=== PATIENT | male | born 1980 | race Caucasian/White ===

== ENCOUNTER 2016-10-30 13:37 | Emergency (ER) | payer MEDICAID, OTHER, SELFPAY ==
--- NOTE | 2016-10-30 15:19 | EDDOCDS ---
Nurse's Notes [facility] Name: Nam Wiggins Age: 35 yrs Sex: Male : 1980 Arrival Date: 10/30/2016 Time: 13:37 Bed Triage 3 Private MD: Phil Arteaga Diagnosis: Cellulitis of left lower limb-over left ledezma Presentation: 10/30 13:42 Presenting complaint: Patient states: swelling and redness left lower leg for 2 to 3 kr3 days. Denies injury. Scratches to left lower leg prior to development of redness and swelling. Adult Sepsis Screening: The patient does not have new or worsening altered mentation. Patient's respiratory rate is less than 22. Systolic blood pressure is greater than 100. Patient has a qSOFA score of 0- Negative Sepsis Screen. Suicide/Homicide risk assessment- the patient denies having any suicidal and/or homicidal ideations and does not present with any other emotional, behavioral or mental health complaints. Status: Patient is not a jet aircraft servicer or dependent. Transition of care: patient was not received from another setting of care. 13:42 Acuity: NIDIA Level 4 kr3 13:42 Method Of Arrival: Walkin/Carried/Asstd kr3 Triage Assessment: 13:46 General: Appears in no apparent distress, comfortable, Behavior is cooperative. Pain: kr3 Location: left ledezma Pain currently is 5 out of 10 on a pain scale. HIV screening NA for this visit Offered previously. Historical: - Allergies: PENICILLINS; - Home Meds: 1. Haldol 5 mg Oral tab 3 times per day 2. gabapentin 600 mg Oral tab 3 times per day 3. multivitamin Oral cap daily 4. Colace 100 mg oral cap 2 times per day 5. benztropine 1 mg Oral tab once daily 6. hydroxyzine HCl 50 mg Oral tab twice a day 7. haldol decanoate inj 100 mg monthly 8. Trileptal 600 mg oral tab 2 times per day 9. diphenhydramine HCl 50 mg Oral tab q4h and prn 10. Paxil 20 mg Oral tab once daily 11. Pepcid 40 mg Oral tab 2 times per day 12. Flexeril 10 mg Oral tab as needed 13. Zyprexa 20 mg Oral tab nightly 14. Tegretol 100 mg Oral chew every 12 hours 15. Zyprexa 10 mg Oral tab once daily 16. lorazepam 1 mg Oral tab am, 5 pm and hs - PMHx: Asthma; Depression; psychotic disorder; Schizo-Affective Disorder; Seizure Disorder; TBI; hyperlipidemia; - PSHx: bilteral femur fractures; - Social history: Smoking status: Patient uses tobacco products, current every day smoker. No barriers to communication noted, The patient speaks fluent Korean, Speaks appropriately for age. - Family history: Not pertinent. - : The pt / caregiver states he / she is not on anticoagulants. Home medication list is obtained from the facility DEC. - Exposure Risk Screening:: None identified. - Tetanus status: less than 5 years. Screenin:14 Screening information is obtained from the patient. Fall risk: No risks identified. js13 Assistance ADL's: requires no assistance with activities of daily living. Abuse/DV Screen: The patient / caregiver reports he/she is: not in a situation that causes fear, pain or injury. Nutritional screening: No deficits noted. Advance Directives: There is no active DNR order. home support is adequate. Assessment: 15:13 General: Appears in no apparent distress, Behavior is appropriate for age, cooperative. js13 Pain: Location: left leg. Neurological: Level of Consciousness is awake, alert. Respiratory: Airway is patent Respiratory effort is even, unlabored, Respiratory pattern is regular, symmetrical. Derm: Skin is pink, warm & dry. Vital Signs: 13:38 BP 168 / 91; Pulse 79; Resp 18; Temp 97.9(O); Pulse Ox 100% on R/A; Weight 58.97 kg el (R); Height 5 ft. 7 in. (170.18 cm) (R); Pain 5/10; 15:16 BP 158 / 78; Pulse 80; Resp 16; Temp 98.1(O); Pulse Ox 99% on R/A; js13 13:38 Body Mass Index 20.36 (58.97 kg, 170.18 cm) [facility] Vitals: 13:38 Log In Time: October 30, 2016 at 13:36. [facility] ED Course: 13:38 Patient visited by Rebeka Win PCA. elp 13:38 Phil Arteaga is Private Physician. elp 13:38 Patient moved to Waiting elp 13:39 Patient visited by Patchen, Rebeka, SPORTS EQUIPMENT REPAIRER. elp 13:39 Patient moved to Pre RCE elp 13:43 Triage Initiated kr3 14:05 Patient moved to Triage 3 js13 14:14 The patient / caregiver is instructed regarding the plan of care and ED course. js13 14:58 Sabine Lewis PA-C is [facility]. dt4 14:58 Korin Rosario MD is Attending Physician. dt4 14:58 Patient visited by Sabine Lewis PA-C. dt4 15:13 No IV's were initiated during this patient's visit. No procedures done that require js13 assistance. Order Results: There are currently no results for this order. Outcome: 15:12 Discharge ordered by Provider. dt4 15:13 Discharge Assessment: Patient awake, alert and oriented x 3. No cognitive and/or js13 functional deficits noted. Patient verbalized understanding of disposition instructions. patient administered narcotics - no. The following High Risk Discharge criteria are identified: None. Discharged to home ambulatory. Condition: stable. 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 medication usage, Demonstrated understanding of instructions, medications, Pt was receptive of discharge instructions/ teaching. Prescriptions given X 1. No special radiology studies were completed. Property :Personal belongings accompany Pt. 15:18 Patient left the ED. js13 Signatures: Qing Arambula,RN RN kr3 Taryn Thomson RN RN js13 Audelia, Rebeka, SPORTS EQUIPMENT REPAIRER SPORTS EQUIPMENT REPAIRER elp Sabine Lewis PA-C PA-C dt4 RONNY
--- NOTE | 2016-10-30 15:19 | EDDOCDS ---
Physician Documentation [facility] Name: Nam Wiggins Age: 35 yrs Sex: Male : 1980 Arrival Date: 10/30/2016 Time: 13:37 Bed Triage 3 Private MD: Phil Arteaga Disposition: 10/30/16 15:12 Discharged to Home/Self Care. Impression: Cellulitis of left lower limb - over left ledezma. - Condition is Stable. - Discharge Instructions: Cellulitis. - Prescriptions for Clindamycin HCl 300 mg Oral Capsule - take 1 capsule by ORAL route every 8 hours for 10 days; 30 capsule. - Medication Reconciliation, Local Pharmacy Hours form. - Follow up: Emergency Department; When: As needed; Reason: Worsening of conditions. Follow up: Private Physician; When: 4 - 5 days; Reason: Wound/Symptom Recheck, Recheck today's complaints, Continuance of care. - Problem is new. - Symptoms are unchanged. Historical: - Allergies: PENICILLINS; - Home Meds: 1. Haldol 5 mg Oral tab 3 times per day 2. gabapentin 600 mg Oral tab 3 times per day 3. multivitamin Oral cap daily 4. Colace 100 mg oral cap 2 times per day 5. benztropine 1 mg Oral tab once daily 6. hydroxyzine HCl 50 mg Oral tab twice a day 7. haldol decanoate inj 100 mg monthly 8. Trileptal 600 mg oral tab 2 times per day 9. diphenhydramine HCl 50 mg Oral tab q4h and prn 10. Paxil 20 mg Oral tab once daily 11. Pepcid 40 mg Oral tab 2 times per day 12. Flexeril 10 mg Oral tab as needed 13. Zyprexa 20 mg Oral tab nightly 14. Tegretol 100 mg Oral chew every 12 hours 15. Zyprexa 10 mg Oral tab once daily 16. lorazepam 1 mg Oral tab am, 5 pm and hs - PMHx: Asthma; Depression; psychotic disorder; Schizo-Affective Disorder; Seizure Disorder; TBI; hyperlipidemia; - PSHx: bilteral femur fractures; - Social history: Smoking status: Patient uses tobacco products, current every day smoker. No barriers to communication noted, The patient speaks fluent Amharic, Speaks appropriately for age. - Family history: Not pertinent. - : The pt / caregiver states he / she is not on anticoagulants. Home medication list is obtained from the facility MAR. - Exposure Risk Screening:: None identified. - Tetanus status: less than 5 years. Vital Signs: 10/30 13:38 BP 168 / 91; Pulse 79; Resp 18; Temp 97.9(O); Pulse Ox 100% on R/A; Weight 58.97 kg / elp 130.01 lbs (R); Height 5 ft. 7 in. (170.18 cm) (R); Pain 5/10; 15:16 BP 158 / 78; Pulse 80; Resp 16; Temp 98.1(O); Pulse Ox 99% on R/A; js13 13:38 Body Mass Index 20.36 (58.97 kg, 170.18 cm) elp MDM: 15:18 Financial registration complete. mpb Signatures: Qing Arambula,RN RN kr3 Taryn ThomsonRN RN js13 Sabine Lewis PA-C PA-C dt4 Cam Lieberman, Reg Reg mpb RONNY
--- NOTE | 2016-11-01 16:19 | EDDOCDS ---
Physician Documentation [facility] Name: Nam Wiggins Age: 35 yrs Sex: Male : 1980 Arrival Date: 10/30/2016 Time: 13:37 Bed Triage 3 Private MD: Phil Arteaga Disposition: 10/30/16 15:12 Discharged to Home/Self Care. Impression: Cellulitis of left lower limb - over left ledezma. - Condition is Stable. - Discharge Instructions: Cellulitis. - Prescriptions for Clindamycin HCl 300 mg Oral Capsule - take 1 capsule by ORAL route every 8 hours for 10 days; 30 capsule. - Medication Reconciliation, Local Pharmacy Hours form. - Follow up: Emergency Department; When: As needed; Reason: Worsening of conditions. Follow up: Private Physician; When: 4 - 5 days; Reason: Wound/Symptom Recheck, Recheck today's complaints, Continuance of care. - Problem is new. - Symptoms are unchanged. Historical: - Allergies: PENICILLINS; - Home Meds: 1. Haldol 5 mg Oral tab 3 times per day 2. gabapentin 600 mg Oral tab 3 times per day 3. multivitamin Oral cap daily 4. Colace 100 mg oral cap 2 times per day 5. benztropine 1 mg Oral tab once daily 6. hydroxyzine HCl 50 mg Oral tab twice a day 7. haldol decanoate inj 100 mg monthly 8. Trileptal 600 mg oral tab 2 times per day 9. diphenhydramine HCl 50 mg Oral tab q4h and prn 10. Paxil 20 mg Oral tab once daily 11. Pepcid 40 mg Oral tab 2 times per day 12. Flexeril 10 mg Oral tab as needed 13. Zyprexa 20 mg Oral tab nightly 14. Tegretol 100 mg Oral chew every 12 hours 15. Zyprexa 10 mg Oral tab once daily 16. lorazepam 1 mg Oral tab am, 5 pm and hs - PMHx: Asthma; Depression; psychotic disorder; Schizo-Affective Disorder; Seizure Disorder; TBI; hyperlipidemia; - PSHx: bilteral femur fractures; - Social history: Smoking status: Patient uses tobacco products, current every day smoker. No barriers to communication noted, The patient speaks fluent French, Speaks appropriately for age. - Family history: Not pertinent. - : The pt / caregiver states he / she is not on anticoagulants. Home medication list is obtained from the facility MAR. - Exposure Risk Screening:: None identified. - Tetanus status: less than 5 years. Vital Signs: 10/30 13:38 BP 168 / 91; Pulse 79; Resp 18; Temp 97.9(O); Pulse Ox 100% on R/A; Weight 58.97 kg / elp 130.01 lbs (R); Height 5 ft. 7 in. (170.18 cm) (R); Pain 5/10; 15:16 BP 158 / 78; Pulse 80; Resp 16; Temp 98.1(O); Pulse Ox 99% on R/A; js13 13:38 Body Mass Index 20.36 (58.97 kg, 170.18 cm) elp MDM: 15:18 Financial registration complete. [facility] 15:46 [facility] Payment Agreement was scanned into [employer] and attached to record. [facility] 21:59 T-Sheet-- Draft Copy was scanned into [employer] and attached to record. klr Signatures: Qing Arambula,RN RN kr3 Taryn Thomson,RN RN js13 Sabine Lewis, PA-C PA-C dt4 Jolanta Plata b Cam Lieberman, Claer Castillo The chart was reviewed and I authenticate all verbal orders and agree with the evaluation and treatment provided.Attachments: 15:46 [facility] Payment Agreement [facility] 21:59 T-Sheet-- Draft Copy klr Chart Complete MTDD
--- NOTE | 2016-11-01 16:19 | EDDOCDS ---
Physician Documentation [facility] Name: Nam Wiggins Age: 35 yrs Sex: Male : 1980 Arrival Date: 10/30/2016 Time: 13:37 Bed Triage 3 Private MD: Phil Arteaga Disposition: 10/30/16 15:12 Discharged to Home/Self Care. Impression: Cellulitis of left lower limb - over left ledezma. - Condition is Stable. - Discharge Instructions: Cellulitis. - Prescriptions for Clindamycin HCl 300 mg Oral Capsule - take 1 capsule by ORAL route every 8 hours for 10 days; 30 capsule. - Medication Reconciliation, Local Pharmacy Hours form. - Follow up: Emergency Department; When: As needed; Reason: Worsening of conditions. Follow up: Private Physician; When: 4 - 5 days; Reason: Wound/Symptom Recheck, Recheck today's complaints, Continuance of care. - Problem is new. - Symptoms are unchanged. Historical: - Allergies: PENICILLINS; - Home Meds: 1. Haldol 5 mg Oral tab 3 times per day 2. gabapentin 600 mg Oral tab 3 times per day 3. multivitamin Oral cap daily 4. Colace 100 mg oral cap 2 times per day 5. benztropine 1 mg Oral tab once daily 6. hydroxyzine HCl 50 mg Oral tab twice a day 7. haldol decanoate inj 100 mg monthly 8. Trileptal 600 mg oral tab 2 times per day 9. diphenhydramine HCl 50 mg Oral tab q4h and prn 10. Paxil 20 mg Oral tab once daily 11. Pepcid 40 mg Oral tab 2 times per day 12. Flexeril 10 mg Oral tab as needed 13. Zyprexa 20 mg Oral tab nightly 14. Tegretol 100 mg Oral chew every 12 hours 15. Zyprexa 10 mg Oral tab once daily 16. lorazepam 1 mg Oral tab am, 5 pm and hs - PMHx: Asthma; Depression; psychotic disorder; Schizo-Affective Disorder; Seizure Disorder; TBI; hyperlipidemia; - PSHx: bilteral femur fractures; - Social history: Smoking status: Patient uses tobacco products, current every day smoker. No barriers to communication noted, The patient speaks fluent Nepali, Speaks appropriately for age. - Family history: Not pertinent. - : The pt / caregiver states he / she is not on anticoagulants. Home medication list is obtained from the facility MAR. - Exposure Risk Screening:: None identified. - Tetanus status: less than 5 years. Vital Signs: 10/30 13:38 BP 168 / 91; Pulse 79; Resp 18; Temp 97.9(O); Pulse Ox 100% on R/A; Weight 58.97 kg / elp 130.01 lbs (R); Height 5 ft. 7 in. (170.18 cm) (R); Pain 5/10; 15:16 BP 158 / 78; Pulse 80; Resp 16; Temp 98.1(O); Pulse Ox 99% on R/A; js13 13:38 Body Mass Index 20.36 (58.97 kg, 170.18 cm) elp MDM: 15:18 Financial registration complete. [facility] 15:46 [facility] Payment Agreement was scanned into [employer] and attached to record. [facility] 21:59 T-Sheet-- Draft Copy was scanned into [employer] and attached to record. klr Signatures: Qing Arambula,RN RN kr3 Taryn Thomson,RN RN js13 Sabine Lewis, PA-C PA-C dt4 Jolanta Plata b Cam Lieberman, Clare Castillo The chart was reviewed and I authenticate all verbal orders and agree with the evaluation and treatment provided.Attachments: 15:46 [facility] Payment Agreement [facility] 21:59 T-Sheet-- Draft Copy klr Chart Complete MTDD
--- NOTE | 2016-11-01 16:19 | EDDOCDS ---
Nurse's Notes [facility] Name: Nam Wiggins Age: 35 yrs Sex: Male : 1980 Arrival Date: 10/30/2016 Time: 13:37 Bed Triage 3 Private MD: Phil Arteaga Diagnosis: Cellulitis of left lower limb-over left ledezma Presentation: 10/30 13:42 Presenting complaint: Patient states: swelling and redness left lower leg for 2 to 3 kr3 days. Denies injury. Scratches to left lower leg prior to development of redness and swelling. Adult Sepsis Screening: The patient does not have new or worsening altered mentation. Patient's respiratory rate is less than 22. Systolic blood pressure is greater than 100. Patient has a qSOFA score of 0- Negative Sepsis Screen. Suicide/Homicide risk assessment- the patient denies having any suicidal and/or homicidal ideations and does not present with any other emotional, behavioral or mental health complaints. Status: Patient is not a general service officer or dependent. Transition of care: patient was not received from another setting of care. 13:42 Acuity: NIDIA Level 4 kr3 13:42 Method Of Arrival: Walkin/Carried/Asstd kr3 Triage Assessment: 13:46 General: Appears in no apparent distress, comfortable, Behavior is cooperative. Pain: kr3 Location: left ledezma Pain currently is 5 out of 10 on a pain scale. HIV screening NA for this visit Offered previously. Historical: - Allergies: PENICILLINS; - Home Meds: 1. Haldol 5 mg Oral tab 3 times per day 2. gabapentin 600 mg Oral tab 3 times per day 3. multivitamin Oral cap daily 4. Colace 100 mg oral cap 2 times per day 5. benztropine 1 mg Oral tab once daily 6. hydroxyzine HCl 50 mg Oral tab twice a day 7. haldol decanoate inj 100 mg monthly 8. Trileptal 600 mg oral tab 2 times per day 9. diphenhydramine HCl 50 mg Oral tab q4h and prn 10. Paxil 20 mg Oral tab once daily 11. Pepcid 40 mg Oral tab 2 times per day 12. Flexeril 10 mg Oral tab as needed 13. Zyprexa 20 mg Oral tab nightly 14. Tegretol 100 mg Oral chew every 12 hours 15. Zyprexa 10 mg Oral tab once daily 16. lorazepam 1 mg Oral tab am, 5 pm and hs - PMHx: Asthma; Depression; psychotic disorder; Schizo-Affective Disorder; Seizure Disorder; TBI; hyperlipidemia; - PSHx: bilteral femur fractures; - Social history: Smoking status: Patient uses tobacco products, current every day smoker. No barriers to communication noted, The patient speaks fluent Korean, Speaks appropriately for age. - Family history: Not pertinent. - : The pt / caregiver states he / she is not on anticoagulants. Home medication list is obtained from the facility DEC. - Exposure Risk Screening:: None identified. - Tetanus status: less than 5 years. Screenin:14 Screening information is obtained from the patient. Fall risk: No risks identified. js13 Assistance ADL's: requires no assistance with activities of daily living. Abuse/DV Screen: The patient / caregiver reports he/she is: not in a situation that causes fear, pain or injury. Nutritional screening: No deficits noted. Advance Directives: There is no active DNR order. home support is adequate. Assessment: 15:13 General: Appears in no apparent distress, Behavior is appropriate for age, cooperative. js13 Pain: Location: left leg. Neurological: Level of Consciousness is awake, alert. Respiratory: Airway is patent Respiratory effort is even, unlabored, Respiratory pattern is regular, symmetrical. Derm: Skin is pink, warm & dry. Vital Signs: 13:38 BP 168 / 91; Pulse 79; Resp 18; Temp 97.9(O); Pulse Ox 100% on R/A; Weight 58.97 kg el (R); Height 5 ft. 7 in. (170.18 cm) (R); Pain 5/10; 15:16 BP 158 / 78; Pulse 80; Resp 16; Temp 98.1(O); Pulse Ox 99% on R/A; js13 13:38 Body Mass Index 20.36 (58.97 kg, 170.18 cm) [facility] Vitals: 13:38 Log In Time: October 30, 2016 at 13:36. [facility] ED Course: 13:38 Patient visited by Rebeka Win PCA. elp 13:38 Phil Arteaga is Private Physician. elp 13:38 Patient moved to Waiting elp 13:39 Patient visited by Patchen, Rebeka, CONTROL BOARD OPERATOR. elp 13:39 Patient moved to Pre RCE elp 13:43 Triage Initiated kr3 14:05 Patient moved to Triage 3 js13 14:14 The patient / caregiver is instructed regarding the plan of care and ED course. js13 14:58 Sabine Lewis PA-C [facility]. dt4 14:58 Korin Rosario MD is Attending Physician. dt4 14:58 Patient visited by Sabine Lewis PA-C. dt4 15:13 No IV's were initiated during this patient's visit. No procedures done that require js13 assistance. 15:46 [facility] Payment Agreement was scanned into [employer] and attached to record. ry 16:38 Patient name changed from Nam\S\\S\Whelden\S\ to Nam\S\ \S\Whelden. EDMS 21:59 T-Sheet-- Draft Copy was scanned into [employer] and attached to record. klr Order Results: There are currently no results for this order. Outcome: 15:12 Discharge ordered by Provider. dt4 15:13 Discharge Assessment: Patient awake, alert and oriented x 3. No cognitive and/or js13 functional deficits noted. Patient verbalized understanding of disposition instructions. patient administered narcotics - no. The following High Risk Discharge criteria are identified: None. Discharged to home ambulatory. Condition: stable. Discharge instructions given to patient, vp of product, Instructed on discharge instructions, follow up and referral plans. medication usage, Demonstrated understanding of instructions, medications, Pt was receptive of discharge instructions/ teaching. Prescriptions given X 1. No special radiology studies were completed. Property :Personal belongings accompany Pt. 15:18 Patient left the ED. js13 Signatures: Dispatcher [employer] EDMS Qing Arambula,RN RN kr3 Taryn Thomson RN RN js13 Bunny Winin, CONTROL BOARD OPERATOR CONTROL BOARD OPERATOR elp Sabine Lewis PA-C PA-C dt4 Jolanta Plata Kathie klr Chart Complete MTDD
== END 2016-10-30 15:18 | disposition home or self-care (01) ==
LOC: M ED 13:37
DX: L03.116 Cellulitis of left lower limb (principal); J45.909 Unspecified asthma, uncomplicated; F32.9 Major depressive disorder, single episode, unspecified; F25.9 Schizoaffective disorder, unspecified; G40.909 Epilepsy, unspecified, not intractable, without status epilepticus; E78.5 Hyperlipidemia, unspecified; Z87.820 Personal history of traumatic brain injury; Z87.81 Personal history of (healed) traumatic fracture; Z72.0 Tobacco use; Z79.899 Other long term (current) drug therapy; Z88.0 Allergy status to penicillin

== ENCOUNTER → 2016-12-12 | Outpatient (CLI) | payer MEDICAID, SELFPAY ==
[~2016-12-12] MED LIST: ATIV1TAB7 PO; COGE1INJ PO; CYCL10TA PO; GABA-283 PO; HALD100I2 IM; HALD5INJ2 PO; HYDR100C PO; NAPR500T PO; OLAN15TA PO; PAXI20TA3 PO; TEGR200T PO; TRIL600T PO
[2016-12-12 10:34] LABS: ALBUMIN 4.2 GM/DL (3.2-5.2); ALBUMIN/GLOBULIN RATIO 1.5 (1.00-1.93); BILIRUBIN,DIRECT 0.2 MG/DL (0.0-0.2); BILIRUBIN,TOTAL 0.5 MG/DL (0.2-1.0); POTASSIUM SERUM 4.8 MEQ/L (3.5-5.1)
[2016-12-16 00:08] LABS: OLANZAPINE (ZYPREXA) LEVEL 53.4 ng/ml (10.0 - 80.0)
== END ==
LOC: M WUC 08:19
PROVIDERS: ATTEND Psychiatry & Neurology Psychiatry
DX: R74.0 Nonspecific elevation of levels of transaminase and lactic acid dehydrogenase [LDH] (principal)
CPT/HCPCS: 36415; 80051; 80076; 80173; 80183; G0480

== ENCOUNTER 2017-01-16 09:32 | Emergency (ER) | payer MEDICAID, SELFPAY ==
[~2017-01-16] VITALS: Ht 170.2 cm; Wt 61.2 kg
[2017-01-16] MEDS ORDERED: GABA-283 PO (10:02)
[2017-01-16] MEDS ORDERED: OLAN15TA PO (10:02)
[2017-01-16] MEDS ORDERED: HYDR100C PO (10:02)
[2017-01-16] MEDS ORDERED: PAXI20TA3 PO (10:02)
[2017-01-16] MEDS ORDERED: CYCL10TA PO (10:02)
[2017-01-16] MEDS ORDERED: HALD5INJ2 PO (10:02)
[2017-01-16] MEDS ORDERED: TRIL600T PO (10:02)
[2017-01-16] MEDS ORDERED: ATIV1TAB7 PO (10:02)
[2017-01-16] MEDS ORDERED: COGE1INJ PO (10:02)
[2017-01-16] MEDS ORDERED: HALD100I2 IM (10:02)
[2017-01-16] MEDS ORDERED: TEGR200T PO (10:02)
--- NOTE | 2017-01-16 11:01 | REP ---
Clinical: Trauma. Technique: AP, lateral, bilateral oblique views. Findings: The osseous structures and joint spaces are intact and normal. There is no evidence for acute fracture or dislocation. Surrounding soft tissues are unremarkable. No subcutaneous emphysema or radiodense foreign body. Impression: No acute fracture or dislocation. Signed by Sal Caban MD 01/16/2017 10:53 A
[2017-01-16] MEDS ORDERED: NAPR500T PO (11:08)
[2017-01-16 11:28] VITALS: BP 142/84
== END 2017-01-16 11:32 | disposition home or self-care (01) ==
LOC: M ED 10:27
DX: S90.31XA Contusion of right foot, initial encounter (principal); X50.9XXA Other and unspecified overexertion or strenuous movements or postures, initial encounter; Y92.019 Unspecified place in single-family (private) house as the place of occurrence of the external cause; Y93.01 Activity, walking, marching and hiking; Y99.8 Other external cause status

== ENCOUNTER → 2017-03-13 | Outpatient (CLI) | payer MEDICAID ==
[2017-03-13 17:21] LABS: POTASSIUM SERUM 4.3 MEQ/L (3.5-5.1)
== END ==
LOC: M WUC 11:15
PROVIDERS: ATTEND Psychiatry & Neurology Psychiatry
DX: Z79.899 Other long term (current) drug therapy (principal); F20.9 Schizophrenia, unspecified

== ENCOUNTER → 2017-03-21 | Outpatient (CLI) | payer MEDICAID ==
[~2017-03-21] MED LIST changes: +CARB10TACH PO; +COLA100C3 PO; +DIPH12.527 PO; +DIPH50CA PO; +FAMO20TA PO; +FAMO40TA3 PO; +GABA600T PO; +HALO5TA PO; +MULTCAP11 PO; +OLAN20TA PO; +VIST50CA PO; +VITMTA PO
--- NOTE | 2017-03-22 10:41 | REP ---
RIGHT ANKLE, FOUR VIEWS: HISTORY: Pain. There is no acute fracture or dislocation. The joint space is normal in appearance. Soft tissue swelling is present over the lateral malleolus. IMPRESSION: There is no acute fracture or dislocation. Signed by Roberto Horne MD 03/22/2017 10:50 A
== END ==
LOC: M WUC 11:43
PROVIDERS: ATTEND Physician Assistant
DX: M25.571 Pain in right ankle and joints of right foot (principal)

== ENCOUNTER 2017-03-29 15:23 | Inpatient (IN) | payer MEDICAID ==
[~2017-03-29] VITALS: Ht 167.6 cm; Wt 59.5 kg
[~2017-03-29 15:23] MED LIST changes: -CARB10TACH PO; -COLA100C3 PO; -DIPH12.527 PO; -DIPH50CA PO; -FAMO20TA PO; -FAMO40TA3 PO; -GABA600T PO; -HALO5TA PO; -MULTCAP11 PO; -OLAN20TA PO; -VIST50CA PO; -VITMTA PO; +amLODIPine 10 MG TAB PO SCH
[2017-03-29] MEDS ORDERED: DIPH12.527 PO (15:32)
[2017-03-29] MEDS ORDERED: COLA100C3 PO (15:32)
[2017-03-29] MEDS ORDERED: MULTCAP11 PO (15:32)
[2017-03-29] MEDS ORDERED: FAMO20TA PO (15:35)
[2017-03-29 16:50] LABS: BASO % 0.1 % (0.0-1.0); EOS % 0.9 % (0.0-3.0); LARGE UNSTAINED CELL # 0.1 K/mm3 (0.0-0.4); LYMPH # 1.2 K/mm3 (1.5-4.5); LYMPH % 35.7 % (24.0-44.0); MEAN CORPUSCULAR HEMOGLOBIN 31.7 pg (27.0-33.0); MEAN CORPUSCULAR HGB CONC 35.5 g/dl (32.0-36.5); MEAN CORPUSCULAR VOLUME 89.2 fl (80.0-96.0); MONO # 0.3 K/mm3 (0.0-0.8); MONO % 8.8 % (0.0-5.0); NEUTROPHILS # 1.6 K/mm3 (1.8-7.7); NEUTROPHILS % 51.6 % (36.0-66.0); PLATELET COUNT, AUTOMATED 227 k/mm3 (150-450); RED CELL DISTRIBUTION WIDTH 12.5 % (11.5-14.5); WHITE BLOOD COUNT 3.2 K/mm3 (4.0-10.0)
[2017-03-29 17:06] LABS: ALBUMIN 4.3 GM/DL (3.2-5.2); ALBUMIN/GLOBULIN RATIO 1.95 (1.00-1.93); ALKALINE PHOSPHATASE 133 U/L (45-117); ALT/SGPT 27 U/L (12-78); ANION GAP 9 MEQ/L (8-16); AST/SGOT 19 U/L (15-37); BILIRUBIN,DIRECT 0.1 MG/DL (0.0-0.2); BILIRUBIN,TOTAL 0.4 MG/DL (0.2-1.0); BLOOD UREA NITROGEN 5 MG/DL (7-18); CALCIUM LEVEL 8.3 MG/DL (8.5-10.1); CARBAMAZEPINE (TEGRETOL) LEVEL 3.8 UG/ML (4.0-10.0); CARBON DIOXIDE LEVEL 28 MEQ/L (21-32); CHLORIDE LEVEL 77 MEQ/L (98-107); CREATININE FOR GFR 0.45 MG/DL (0.70-1.30); GLOMERULAR FILTRATION RATE > 60.0 (>60); GLUCOSE, FASTING 80 MG/DL (70-105); MAGNESIUM LEVEL 1.9 MG/DL (1.8-2.4); PHOSPHORUS LEVEL 3.1 MG/DL (2.5-4.9); POTASSIUM SERUM 3.9 MEQ/L (3.5-5.1); SODIUM LEVEL 114 MEQ/L (136-145); TOTAL PROTEIN 6.5 GM/DL (6.4-8.2)
[2017-03-29] MEDS ORDERED: GABA600T PO (17:38)
[2017-03-29] MEDS ORDERED: FAMO40TA3 PO (17:38)
[2017-03-29] MEDS ORDERED: HALO5TA PO (17:38)
[2017-03-29] MEDS ORDERED: VIST50CA PO (17:38)
[2017-03-29] MEDS ORDERED: DIPH50CA PO (17:38)
[2017-03-29] MEDS ORDERED: VITMTA PO (17:38)
[2017-03-29] MEDS ORDERED: OLAN20TA PO (17:38)
[2017-03-29] MEDS ORDERED: CARB10TACH PO (17:38)
[2017-03-29] MEDS ORDERED: NS 500 ML IV ONE (18:15)
[2017-03-29] MEDS ORDERED: NS 1,000 ML IV SCH (20:20)
[2017-03-29] MEDS ORDERED: diphenhydrAMINE 50 MG CAP PO PRN (20:30)
[2017-03-29] MEDS ORDERED: ONDANSETRON 4MG/2ML VIAL (J2405) IV PRN (20:30)
[2017-03-29] MEDS ORDERED: ACETAMINOPHEN TAB 650MG DOSE (2X325MG) PO PRN (20:30)
[2017-03-29] MEDS ORDERED: CYCLOBENZAPRINE 10 MG TAB PO PRN (20:30)
[2017-03-29 21:00] VITALS: BP 148/95
[2017-03-29 21:28] LABS: OSMOLALITY SERUM 251 MOSM/KG (275-295)
[2017-03-29 21:32] LABS: ANION GAP 3 MEQ/L (8-16); BLOOD UREA NITROGEN 4 MG/DL (7-18); CALCIUM LEVEL 8.9 MG/DL (8.5-10.1); CARBON DIOXIDE LEVEL 32 MEQ/L (21-32); CHLORIDE LEVEL 86 MEQ/L (98-107); CREATININE FOR GFR 0.48 MG/DL (0.70-1.30); GLOMERULAR FILTRATION RATE > 60.0 (>60); GLUCOSE, FASTING 86 MG/DL (70-105); POTASSIUM SERUM 4.2 MEQ/L (3.5-5.1); SODIUM LEVEL 121 MEQ/L (136-145)
[2017-03-29] MEDS: levETIRAcetam 250MG TABLET (KEPPRA) PO SCH (21:51)
[2017-03-29] MEDS: FAMOTIDINE 20 MG TAB PO SCH (21:51)
[2017-03-29] MEDS: OLANZapine 10 MG TAB PO SCH (21:51)
[2017-03-29] MEDS: GABAPENTIN 300 MG CAP PO SCH (21:51)
[2017-03-29] MEDS: OXcarbazepine 300 MG TAB PO SCH (21:51)
[2017-03-29] MEDS: DOCUSATE SODIUM 100 MG CAP PO SCH (21:52)
[2017-03-29] MEDS: hydrOXYzine 50 MG TAB PO SCH (21:52)
[2017-03-29] MEDS: HALOPERIDOL 5 MG TAB PO SCH (21:52)
[2017-03-29] MEDS: LORazepam 1 MG TAB PO SCH (21:52)
[2017-03-30 01:02] LABS: ANION GAP 8 MEQ/L (8-16); BLOOD UREA NITROGEN 6 MG/DL (7-18); CALCIUM LEVEL 8.9 MG/DL (8.5-10.1); CARBON DIOXIDE LEVEL 25 MEQ/L (21-32); CHLORIDE LEVEL 88 MEQ/L (98-107); CREATININE FOR GFR 0.53 MG/DL (0.70-1.30); GLOMERULAR FILTRATION RATE > 60.0 (>60); GLUCOSE, FASTING 78 MG/DL (70-105); SODIUM LEVEL 121 MEQ/L (136-145)
[2017-03-30 04:54] LABS: BASO % 0.2 % (0.0-1.0); EOS % 0.6 % (0.0-3.0); LARGE UNSTAINED CELL # 0.1 K/mm3 (0.0-0.4); LYMPH # 1.3 K/mm3 (1.5-4.5); LYMPH % 42.1 % (24.0-44.0); MEAN CORPUSCULAR HEMOGLOBIN 31.6 pg (27.0-33.0); MEAN CORPUSCULAR HGB CONC 35.2 g/dl (32.0-36.5); MONO # 0.3 K/mm3 (0.0-0.8); MONO % 11.9 % (0.0-5.0); NEUTROPHILS # 1.1 K/mm3 (1.8-7.7); NEUTROPHILS % 40.2 % (36.0-66.0); PLATELET COUNT, AUTOMATED 245 k/mm3 (150-450); RED CELL DISTRIBUTION WIDTH 12.6 % (11.5-14.5); WHITE BLOOD COUNT 2.8 K/mm3 (4.0-10.0)
[2017-03-30 05:14] LABS: ALBUMIN 3.9 GM/DL (3.2-5.2); ALKALINE PHOSPHATASE 124 U/L (45-117); ALT/SGPT 26 U/L (12-78); ANION GAP 7 MEQ/L (8-16); AST/SGOT 16 U/L (15-37); BILIRUBIN,TOTAL 0.3 MG/DL (0.2-1.0); BLOOD UREA NITROGEN 7 MG/DL (7-18); CALCIUM LEVEL 8.7 MG/DL (8.5-10.1); CARBON DIOXIDE LEVEL 28 MEQ/L (21-32); CHLORIDE LEVEL 89 MEQ/L (98-107); CREATININE FOR GFR 0.65 MG/DL (0.70-1.30); GLOMERULAR FILTRATION RATE > 60.0 (>60); GLUCOSE, FASTING 81 MG/DL (70-105); MAGNESIUM LEVEL 2.3 MG/DL (1.8-2.4); POTASSIUM SERUM 3.9 MEQ/L (3.5-5.1); SODIUM LEVEL 124 MEQ/L (136-145); TOTAL PROTEIN 6.5 GM/DL (6.4-8.2)
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
[2017-03-30 06:00] VITALS: BP 145/92
--- NOTE | 2017-03-30 08:22 | ECGEPIP ---
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
[2017-03-30] MEDS: OXcarbazepine 300 MG TAB PO SCH ×3 (09:25→20:50)
[2017-03-30] MEDS: BENZTROPINE 1 MG TAB PO SCH (09:26)
[2017-03-30] MEDS: FAMOTIDINE 20 MG TAB PO SCH ×2 (09:26→20:49)
[2017-03-30] MEDS: MULTIVITAMINS/MINERALS THERAP 1 TAB PO SCH (09:26)
[2017-03-30] MEDS: DOCUSATE SODIUM 100 MG CAP PO SCH ×2 (09:26→20:49)
[2017-03-30] MEDS: levETIRAcetam 250MG TABLET (KEPPRA) PO SCH ×2 (09:26→20:49)
[2017-03-30] MEDS: OLANZapine 10 MG TAB PO SCH ×2 (09:26→20:49)
[2017-03-30] MEDS: PARoxetine 20 MG TAB PO SCH (09:26)
[2017-03-30] MEDS: LORazepam 1 MG TAB PO SCH ×3 (09:26→20:50)
[2017-03-30] MEDS: HALOPERIDOL 5 MG TAB PO SCH ×3 (09:27→20:49)
[2017-03-30] MEDS: ENOXAPARIN 40 MG/0.4 ML SYRINGE (J1650) SC SCH (09:27)
[2017-03-30] MEDS: hydrOXYzine 50 MG TAB PO SCH ×2 (09:27→20:48)
[2017-03-30] MEDS: GABAPENTIN 300 MG CAP PO SCH ×3 (09:27→20:49)
--- NOTE | 2017-03-30 10:29 | IPNPDOC ---
Subjective Date Seen The patient was seen on 03/30/17. Subjective Chief Complaint/HPI The patient is a 36-year-old male admitted with a reason for visit of Hyponatremia. Events since last encounter Would like a cup of coffee, usually drinks 4 cups per day, hungry, would like diet advanced, no pain Constitutional: Denies: Chills, Fever Pulmonary: Denies: Dyspnea, Cough Cardiovascular: Denies: Chest Pain, Palpitations Gastrointestinal: Denies: Nausea, Vomiting, Abdominal Pain Genitourinary: Denies: Dysuria, Frequency Objective Physical Examination General Exam: Positive: Alert, Cooperative, No Acute Distress Eye Exam: Negative: Sclera icteric ENT Exam: Positive: Mucous membr. moist/pink Chest Exam: Positive: Clear to auscultation, Negative: Rales, Rhonchi, Wheezing Heart Exam: Positive: Rate Normal, Regular Rhythm, Normal S1, Normal S2 Abdomen Exam: Positive: Normal bowel sounds, Soft, Negative: Tenderness Extremity Exam: Negative: Edema Assessment /Plan Problems (1) Hyponatremia Status: Acute Problem Text: by history would appear to be psychogenic polydypsia but consideration given to other underlying possibilities urine sodium and osmolality pending SIADH, hypothyroidism, adrenal insufficiency also possible diet advanced, with fluid restriction (2) Schizophrenia Status: Chronic Problem Text: also personality disorder, and suffers from hallucinations Continuing medications has staff member with him (3) Asthma Status: Chronic Response to Treatment: Stable Problem Specific Plan: Monitor Clinically (4) Seizure disorder Status: Chronic Response to Treatment: Stable Problem Specific Plan: Monitor Clinically (5) Hyperlipidemia Status: Chronic Response to Treatment: Stable Problem Specific Plan: Monitor Clinically Plan/VTE VTE Prophylaxis Ordered?: Yes (lovenox) VS, I&O, 24H, Fishbone Vital Signs/I&O Vital Signs Date Time Temp Pulse Resp B/P (MAP) Pulse Ox O2 Delivery O2 Flow Rate FiO2 03/30/17 06:00 97.0 100 17 145/92 (109) 98 Room Air I&O- Last 24 Hours up to 6 AM 03/30/17 06:00 Intake Total 0 ml Output Total 0 ml Balance 0 ml Laboratory Data 24H LABS Laboratory Tests 2 03/29/17 16:27: White Blood Count 3.2L, Red Blood Count 3.99L, Hemoglobin 12.6L, Hematocrit 35.6L, Mean Corpuscular Volume 89.2, Mean Corpuscular Hemoglobin 31.7, Mean Corpuscular Hemoglobin Concent 35.5, Red Cell Distribution Width 12.5, Platelet Count 227, Neutrophils (%) (Auto) 51.6, Lymphocytes (%) (Auto) 35.7, Monocytes ( %) (Auto) 8.8H, Eosinophils (%) (Auto) 0.9, Basophils (%) (Auto) 0.1, Neutrophils # (Auto) 1.6L, Lymphocytes # (Auto) 1.2L, Monocytes # (Auto) 0.3, Eosinophils # (Auto) 0.0, Basophils # (Auto) 0.0, Large Unclassified Cells % 3.0 , Large Unclassified Cells # 0.1, Anion Gap 9, Glomerular Filtration Rate > 60.0 , Calcium Level 8.3L, Phosphorus Level 3.1, Magnesium Level 1.9, Aspartate Amino Transf (AST/SGOT) 19, Alanine Aminotransferase (ALT/SGPT) 27, Alkaline Phosphatase 133H, Total Bilirubin 0.4, Direct Bilirubin 0.1, Total Protein 6.5, Albumin 4.3, Albumin/Globulin Ratio 1.95H, Carbamazepine (Tegretol) Level 3.8L 03/29/17 20:49: Anion Gap 3L, Glomerular Filtration Rate > 60.0, Calcium Level 8.9, Osmolality 251L, Blood Urea Nitrogen 4L, Creatinine 0.48L, Sodium Level 121#L, Potassium Level 4.2, Chloride Level 86L, Carbon Dioxide Level 32 03/30/17 00:37: Anion Gap 8, Glomerular Filtration Rate > 60.0, Calcium Level 8.9, Blood Urea Nitrogen 6L, Creatinine 0.53L, Sodium Level 121L, Potassium Level 4.0, Chloride Level 88L, Carbon Dioxide Level 25 03/30/17 04:45: White Blood Count 2.8L, Red Blood Count 4.27L, Hemoglobin 13.5L, Hematocrit 38.4L, Mean Corpuscular Volume 90.0, Mean Corpuscular Hemoglobin 31.6, Mean Corpuscular Hemoglobin Concent 35.2, Red Cell Distribution Width 12.6, Platelet Count 245, Neutrophils (%) (Auto) 40.2, Lymphocytes (%) (Auto) 42.1, Monocytes ( %) (Auto) 11.9H, Eosinophils (%) (Auto) 0.6, Basophils (%) (Auto) 0.2, Neutrophils # (Auto) 1.1L, Lymphocytes # (Auto) 1.3L, Monocytes # (Auto) 0.3, Eosinophils # (Auto) 0.0, Basophils # (Auto) 0.0, Large Unclassified Cells % 5.0H, Large Unclassified Cells # 0.1, Anion Gap 7L, Glomerular Filtration Rate > 60.0, Calcium Level 8.7, Magnesium Level 2.3, Aspartate Amino Transf (AST/SGOT ) 16, Alanine Aminotransferase (ALT/SGPT) 26, Alkaline Phosphatase 124H, Total Bilirubin 0.3, Total Protein 6.5, Albumin 3.9, Albumin/Globulin Ratio 1.50, Blood Urea Nitrogen 7, Creatinine 0.65L, Sodium Level 124L, Potassium Level 3.9 , Chloride Level 89L, Carbon Dioxide Level 28, Thyroid Stimulating Hormone (TSH ) 1.510 03/30/17 09:14: CBC/BMP Laboratory Tests 03/29/17 16:27 Red Blood Count 3.99 L, Mean Corpuscular Volume 89.2, Mean Corpuscular Hemoglobin 31.7, Mean Corpuscular Hemoglobin Concent 35.5, Red Cell Distribution Width 12.5, Neutrophils (%) (Auto) 51.6, Lymphocytes (%) (Auto) 35.7, Monocytes (%) (Auto) 8.8 H, Eosinophils (%) (Auto) 0.9, Basophils (%) ( Auto) 0.1, Neutrophils # (Auto) 1.6 L, Lymphocytes # (Auto) 1.2 L, Monocytes # ( Auto) 0.3, Eosinophils # (Auto) 0.0, Basophils # (Auto) 0.0 03/29/17 20:49 Calcium Level 8.9 03/30/17 00:37 Calcium Level 8.9 03/30/17 04:45 Red Blood Count 4.27 L, Mean Corpuscular Volume 90.0, Mean Corpuscular Hemoglobin 31.6, Mean Corpuscular Hemoglobin Concent 35.2, Red Cell Distribution Width 12.6, Neutrophils (%) (Auto) 40.2, Lymphocytes (%) (Auto) 42.1, Monocytes (%) (Auto) 11.9 H, Eosinophils (%) (Auto) 0.6, Basophils (%) ( Auto) 0.2, Neutrophils # (Auto) 1.1 L, Lymphocytes # (Auto) 1.3 L, Monocytes # ( Auto) 0.3, Eosinophils # (Auto) 0.0, Basophils # (Auto) 0.0, Calcium Level 8.7, Aspartate Amino Transf (AST/SGOT) 16, Alanine Aminotransferase (ALT/SGPT) 26, Alkaline Phosphatase 124 H, Total Bilirubin 0.3, Total Protein 6.5, Albumin 3.9 JESS RICARDO MD Mar 30, 2017 10:29
[2017-03-30 10:45] LABS: OSMOLALITY URINE 120 MOSM/KG (500-800)
[2017-03-30 12:47] LABS: CORTISOL BASELINE 14.5 UG/DL (4.3-22.4)
--- NOTE | 2017-03-30 13:37 | REP ---
MRI study of the right foot without contrast: History: Right foot and ankle pain. Injury in a fall this past december. Comparison radiographs March 21, 2017 and January 16, 2017. Technique: Sagittal, axial and coronal imaging planes are utilized. T1, proton density and T2-weighted scans include STIR and spin echo sequences with and without fat saturation. MRI findings: There is marked signal intensity abnormality throughout the talus, calcaneus and cuboid bone. There is mild marrow edema in the cuneiform bones and the medial aspect of the tarsal navicula. There is a radiographically occult nondisplaced fracture through the posterior talus parallel to the posterior subtalar joint facet. There is another radiographically occult nondisplaced fracture through the anterior and lateral aspect of the calcaneus. There is subtalar and ankle joint effusion. Some extra-articular soft tissue edema is seen. No evidence of tendon disruption or tendinopathy. Plantar fascia is smooth. No other fracture is seen. Impression: Healing nondisplaced radiographically occult fractures involving the posterior talus and the anterolateral calcaneus with associated and fairly extensive marrow edema in the hind foot and midfoot. Ankle and subtalar joint effusions. Signed by Luis Manuel Oneill MD 03/30/2017 03:08 P
[2017-03-30 14:00] VITALS: BP 122/71
[2017-03-30 16:26] LABS: ANION GAP 7 MEQ/L (8-16); BLOOD UREA NITROGEN 9 MG/DL (7-18); CARBON DIOXIDE LEVEL 28 MEQ/L (21-32); CHLORIDE LEVEL 92 MEQ/L (98-107); CREATININE FOR GFR 0.81 MG/DL (0.70-1.30); GLOMERULAR FILTRATION RATE > 60.0 (>60); GLUCOSE, FASTING 94 MG/DL (70-105); POTASSIUM SERUM 4.1 MEQ/L (3.5-5.1); SODIUM LEVEL 127 MEQ/L (136-145)
[2017-03-30 16:27] LABS: CALCIUM LEVEL 9.1 MG/DL (8.5-10.1)
[2017-03-30 22:00] VITALS: BP 122/63
[2017-03-31 06:00] VITALS: BP 130/78
[2017-03-31 06:49] LABS: BASO % 0.2 % (0.0-1.0); EOS % 0.8 % (0.0-3.0); LARGE UNSTAINED CELL # 0.1 K/mm3 (0.0-0.4); LARGE UNSTAINED CELL % 2.1 % (0.0-4.0); LYMPH # 1.5 K/mm3 (1.5-4.5); LYMPH % 38.4 % (24.0-44.0); MEAN CORPUSCULAR HEMOGLOBIN 31.5 pg (27.0-33.0); MEAN CORPUSCULAR VOLUME 92.8 fl (80.0-96.0); MONO # 0.4 K/mm3 (0.0-0.8); MONO % 11.7 % (0.0-5.0); NEUTROPHILS # 1.7 K/mm3 (1.8-7.7); NEUTROPHILS % 46.7 % (36.0-66.0); PLATELET COUNT, AUTOMATED 261 k/mm3 (150-450); RED CELL DISTRIBUTION WIDTH 12.9 % (11.5-14.5); WHITE BLOOD COUNT 3.6 K/mm3 (4.0-10.0)
[2017-03-31 06:53] LABS: ALBUMIN 3.9 GM/DL (3.2-5.2); ALBUMIN/GLOBULIN RATIO 1.56 (1.00-1.93); ALKALINE PHOSPHATASE 129 U/L (45-117); ALT/SGPT 28 U/L (12-78); ANION GAP 9 MEQ/L (8-16); AST/SGOT 14 U/L (15-37); BILIRUBIN,TOTAL 0.3 MG/DL (0.2-1.0); BLOOD UREA NITROGEN 14 MG/DL (7-18); CARBON DIOXIDE LEVEL 26 MEQ/L (21-32); CHLORIDE LEVEL 93 MEQ/L (98-107); CREATININE FOR GFR 0.89 MG/DL (0.70-1.30); GLOMERULAR FILTRATION RATE > 60.0 (>60); GLUCOSE, FASTING 79 MG/DL (70-105); MAGNESIUM LEVEL 2.2 MG/DL (1.8-2.4); POTASSIUM SERUM 4.3 MEQ/L (3.5-5.1); SODIUM LEVEL 128 MEQ/L (136-145); TOTAL PROTEIN 6.4 GM/DL (6.4-8.2)
[2017-03-31] MEDS: DOCUSATE SODIUM 100 MG CAP PO SCH (08:30)
[2017-03-31] MEDS: OLANZapine 10 MG TAB PO SCH (08:30)
[2017-03-31] MEDS: BENZTROPINE 1 MG TAB PO SCH (08:30)
[2017-03-31] MEDS: PARoxetine 20 MG TAB PO SCH (08:30)
[2017-03-31] MEDS: GABAPENTIN 300 MG CAP PO SCH (08:30)
[2017-03-31] MEDS: HALOPERIDOL 5 MG TAB PO SCH (08:30)
[2017-03-31] MEDS: hydrOXYzine 50 MG TAB PO SCH (08:30)
[2017-03-31] MEDS: OXcarbazepine 300 MG TAB PO SCH (08:30)
[2017-03-31] MEDS: MULTIVITAMINS/MINERALS THERAP 1 TAB PO SCH (08:30)
[2017-03-31] MEDS: FAMOTIDINE 20 MG TAB PO SCH (08:30)
[2017-03-31] MEDS: levETIRAcetam 250MG TABLET (KEPPRA) PO SCH (08:30)
[2017-03-31] MEDS: LORazepam 1 MG TAB PO SCH (08:31)
[2017-03-31] MEDS: ENOXAPARIN 40 MG/0.4 ML SYRINGE (J1650) SC SCH (08:31)
--- NOTE | 2017-03-31 15:57 | DSES ---
DATE OF ADMISSION: 03/29/2017 DATE OF DISCHARGE: 03/31/2017 SPECIALISTS INVOLVED IN CARE: Dr. Kruger. COMPLICATIONS: No complications during stay. PROCEDURES: No procedures performed during stay. DISCHARGE DIAGNOSES: 1. 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 2. Fracture of the right posterior talus and anterolateral calcaneus, with joint effusions. 3. Psychotic disorder with hallucinations. 4. Schizophrenia paranoid type. 5. Personality disorder. 6. Asthma. 7. Epilepsy. 8. Hyperlipidemia. SUMMARY OF HOSPITALIZATION: This is a 36-year-old who presented with abnormal laboratories and was found to have hyponatremia with a sodium of 114. He was treated with saline. Urine and blood studies were done which suggested the possibility of psychogenic polydipsia. There was initially concern about the possibility of syndrome of inappropriate secretion of antidiuretic hormone (SIADH) which seems less likely. He was treated with fluid restriction with improvement. He did well during his stay. It became apparent during his stay that he has right foot pain and was planned for an outpatient MRI, was found to have a fracture. Was seen in consultation by Dr. Kruger, who casted the ankle, and he was discharged in stable condition. No complaints of chest pain, shortness of breath. OBJECTIVE: VITAL SIGNS: Temperature 97.9, pulse 93, respiratory rate 18, blood pressure 130/78, 100% on room air. GENERAL: Awake, alert, appropriately interactive. Pleasantly conversant. Somewhat flattened affect. ABDOMEN: Soft, doughy, nontender. LUNGS: Breathing is symmetrical. HEART: Regular rate and rhythm. LABORATORY DATA: White cell count 3.6, hemoglobin 13.2, and platelets of 261. BUN 14, creatinine 0.89. Sodium 128 trending upwards. DISCHARGE INSTRUCTIONS: Followup with Dr. Arteaga 04/12/2017. Followup with Dr. Kruger within four weeks. Ambulate with cast including crutches. Diet as tolerated. Fluid restriction 2000 mL per 24 hours. - Cogentin 1 mg by mouth daily - carbamazepine 100 mg by mouth twice daily - Flexeril 10 mg by mouth three times a day - diphenhydramine 50 mg every four hours as needed for agitation - Colace 100 mg by mouth twice daily - famotidine 40 mg by mouth twice daily - Neurontin 600 mg by mouth three times a day - haloperidol 5 mg by mouth three times a day - haloperidol decanoate intramuscular monthly - hydroxyzine (please verify) by mouth twice daily - lorazepam 1 mg by mouth three times a day - multivitamin tablet daily - olanzapine 20 mg by mouth twice daily - Trileptal 600 mg by mouth three times a day - Paxil 20 mg daily As it is taking longer than a week to get him in with his primary care, I believe it is reasonable to repeat a basic metabolic panel (BMP) in one week. I will need to mail the patient a prescription for that with the results to Dr. Arteaga.
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
== END 2017-03-31 14:05 | disposition home or self-care (01) | DRG 425 ==
LOC: M ED 16:48 → M ED INP 18:29 → M MSPAV 20:53
PROVIDERS: ATTEND Internal Medicine
DX: E87.1 Hypo-osmolality and hyponatremia (principal); S92.024A Nondisplaced fracture of anterior process of right calcaneus, initial encounter for closed fracture; S92.134A Nondisplaced fracture of posterior process of right talus, initial encounter for closed fracture; R63.1 Polydipsia; F20.0 Paranoid schizophrenia; G40.909 Epilepsy, unspecified, not intractable, without status epilepticus; E78.5 Hyperlipidemia, unspecified; F60.9 Personality disorder, unspecified; Z79.899 Other long term (current) drug therapy; K59.00 Constipation, unspecified; W18.30XA Fall on same level, unspecified, initial encounter; Y92.009 Unspecified place in unspecified non-institutional (private) residence as the place of occurrence of the external cause

== ENCOUNTER → 2017-03-29 | Outpatient (CLI) | payer OTHER ==
[2017-03-29 13:33] LABS: MEAN CORPUSCULAR HEMOGLOBIN 32.3 pg (27.0-33.0); MEAN CORPUSCULAR HGB CONC 35.8 g/dl (32.0-36.5); MEAN CORPUSCULAR VOLUME 90.2 fl (80.0-96.0); RED CELL DISTRIBUTION WIDTH 12.4 % (11.5-14.5); WHITE BLOOD COUNT 3.4 K/mm3 (4.0-10.0)
[2017-03-29 13:54] LABS: ALBUMIN 4.4 GM/DL (3.2-5.2); ALBUMIN/GLOBULIN RATIO 1.76 (1.00-1.93); ALKALINE PHOSPHATASE 138 U/L (45-117); ALT/SGPT 26 U/L (12-78); ANION GAP 9 MEQ/L (8-16); AST/SGOT 21 U/L (15-37); BILIRUBIN,TOTAL 0.5 MG/DL (0.2-1.0); BLOOD UREA NITROGEN 5 MG/DL (7-18); CARBON DIOXIDE LEVEL 28 MEQ/L (21-32); CHLORIDE LEVEL 77 MEQ/L (98-107); CHOLESTEROL LEVEL 166 MG/DL (<200); CREATININE FOR GFR 0.42 MG/DL (0.70-1.30); FREE T4 1.11 NG/DL (0.76-1.46); GLOMERULAR FILTRATION RATE > 60.0 (>60); GLUCOSE, FASTING 75 MG/DL (70-105); POTASSIUM SERUM 4.7 MEQ/L (3.5-5.1); SODIUM LEVEL 114 MEQ/L (136-145); TOTAL PROTEIN 6.9 GM/DL (6.4-8.2); TRIGLYCERIDES LEVEL 34 MG/DL (<150)
== END ==
LOC: M WUC 08:50
PROVIDERS: ATTEND Physician Assistant
DX: Z00.00 Encounter for general adult medical examination without abnormal findings (principal)

== ENCOUNTER → 2017-04-15 | Outpatient (CLI) | payer MEDICAID ==
[~2017-04-15] MED LIST changes: +CARB10TACH PO; +COLA100C3 PO; +DIPH12.527 PO; +DIPH50CA PO; +FAMO20TA PO; +FAMO40TA3 PO; +GABA600T PO; +HALO5TA PO; +MULTCAP11 PO; +OLAN20TA PO; +VIST50CA PO; +VITMTA PO; -amLODIPine 10 MG TAB PO SCH
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
== END ==
LOC: M WUC 13:44
PROVIDERS: ATTEND Physician Assistant
DX: S62.356A Nondisplaced fracture of shaft of fifth metacarpal bone, right hand, initial encounter for closed fracture (principal); W18.30XA Fall on same level, unspecified, initial encounter; Y92.009 Unspecified place in unspecified non-institutional (private) residence as the place of occurrence of the external cause

== ENCOUNTER → 2017-04-17 | Outpatient (CLI) | payer OTHER ==
[2017-04-17 17:20] LABS: MEAN CORPUSCULAR HEMOGLOBIN 31.7 pg (27.0-33.0); MEAN CORPUSCULAR HGB CONC 33.5 g/dl (32.0-36.5); MEAN CORPUSCULAR VOLUME 94.6 fl (80.0-96.0); RED CELL DISTRIBUTION WIDTH 12.6 % (11.5-14.5); WHITE BLOOD COUNT 4.9 K/mm3 (4.0-10.0)
[2017-04-17 17:29] LABS: VITAMIN B12 LEVEL 332 PG/ML (247-911)
[2017-04-17 18:48] LABS: ALBUMIN 3.9 GM/DL (3.2-5.2); ALBUMIN/GLOBULIN RATIO 1.56 (1.00-1.93); ALKALINE PHOSPHATASE 130 U/L (45-117); ALT/SGPT 21 U/L (12-78); ANION GAP 7 MEQ/L (8-16); AST/SGOT 12 U/L (15-37); BILIRUBIN,TOTAL 0.2 MG/DL (0.2-1.0); BLOOD UREA NITROGEN 9 MG/DL (7-18); CARBAMAZEPINE (TEGRETOL) LEVEL 4.6 UG/ML (4.0-10.0); CARBON DIOXIDE LEVEL 27 MEQ/L (21-32); CHLORIDE LEVEL 94 MEQ/L (98-107); CREATININE FOR GFR 0.47 MG/DL (0.70-1.30); FREE T4 0.83 NG/DL (0.76-1.46); GLOMERULAR FILTRATION RATE > 60.0 (>60); GLUCOSE, FASTING 100 MG/DL (70-105); POTASSIUM SERUM 4.4 MEQ/L (3.5-5.1); SODIUM LEVEL 128 MEQ/L (136-145); TOTAL PROTEIN 6.4 GM/DL (6.4-8.2)
== END ==
LOC: M WUC 15:28
PROVIDERS: ATTEND Family Medicine
DX: K21.9 Gastro-esophageal reflux disease without esophagitis (principal)

== ENCOUNTER 2017-05-24 21:04 | Emergency (ER) | payer MEDICAID ==
[~2017-05-24] VITALS: Ht 167.6 cm; Wt 56.8 kg
[~2017-05-24 21:04] MED LIST changes: -BENZ-52 PO; -CLON0.5T PO; -DEPA500T2 PO; -DIVA500T3 PO; -HALO10AM IM; -HALO10TA2 PO; -HALO1TAB29 PO; -HYDR50TA70 PO; -HYDRO50TAB PO; -IBUP1TAB6 PO; -LAMI25TA PO; -LORA1TAB12 PO; -MULT1TAB10 PO; -OLAN5ZYD PO; -OXCA300T PO; -RISP1TAB42 PO; -SERT50TA PO; -TRAZ50TA11 PO; -TRAZO50TA PO; -VIMP50TA3 PO
[2017-05-24] MEDS ORDERED: DEPA500T2 PO (21:16)
[2017-05-24] MEDS ORDERED: GABA-283 PO (21:16)
[2017-05-24] MEDS ORDERED: MULT1TAB10 PO (21:16)
[2017-05-24] MEDS ORDERED: IBUPROFEN 800 MG TAB PO ONE (23:15)
[2017-05-25 00:31] VITALS: BP 140/86
--- NOTE | 2017-05-25 08:32 | REP ---
Right ankle four views: Comparison is 03/21/2017. There is a nondisplaced fracture of the distal fibula, not present previously. There is significant soft tissue edema laterally. There is no other fracture. No dislocation. The mortise is symmetric. Mineralization is normal. Impression: Nondisplaced fracture of the distal fibula. Signed by Jeremias Zamudio MD 05/25/2017 08:23 A
== END 2017-05-25 00:15 | disposition home or self-care (01) ==
LOC: M ED 21:04
DX: S82.831A Other fracture of upper and lower end of right fibula, initial encounter for closed fracture (principal); E78.00 Pure hypercholesterolemia, unspecified; J45.909 Unspecified asthma, uncomplicated; F60.9 Personality disorder, unspecified; X58.XXXA Exposure to other specified factors, initial encounter; Y92.018 Other place in single-family (private) house as the place of occurrence of the external cause; Y99.9 Unspecified external cause status; Y93.9 Activity, unspecified; Z88.0 Allergy status to penicillin; Z88.5 Allergy status to narcotic agent

== ENCOUNTER → 2017-05-24 | Outpatient (CLI) | payer MEDICAID ==
[~2017-05-24] MED LIST changes: +BENZ-52 PO; +CLON0.5T PO; -COLA100C3 PO; +COLA100C5 PO; +DEPA500T2 PO; +DIVA500T3 PO; +HALO10AM IM; +HALO10TA2 PO; +HALO1TAB29 PO; +HYDR50TA70 PO; +HYDRO50TAB PO; +IBUP1TAB6 PO; +LAMI25TA PO; +LORA1TAB12 PO; +MULT1TAB10 PO; +OLAN5ZYD PO; +OXCA300T PO; +PAXI20TA29 PO; -PAXI20TA3 PO; +RISP1TAB42 PO; +SERT50TA PO; +TRAZ50TA11 PO; +TRAZO50TA PO; +VIMP50TA3 PO
[2017-05-24 17:22] LABS: ALBUMIN 3.8 GM/DL (3.2-5.2); ALBUMIN/GLOBULIN RATIO 1.41 (1.00-1.93); ALKALINE PHOSPHATASE 127 U/L (45-117); ALT/SGPT 22 U/L (12-78); ANION GAP 11 MEQ/L (8-16); AST/SGOT 32 U/L (15-37); BILIRUBIN,TOTAL 0.2 MG/DL (0.2-1.0); BLOOD UREA NITROGEN 10 MG/DL (7-18); CALCIUM LEVEL 8.7 MG/DL (8.5-10.1); CARBON DIOXIDE LEVEL 25 MEQ/L (21-32); CHLORIDE LEVEL 104 MEQ/L (98-107); CREATININE FOR GFR 0.52 MG/DL (0.70-1.30); GLOMERULAR FILTRATION RATE > 60.0 (>60); GLUCOSE, FASTING 90 MG/DL (70-105); POTASSIUM SERUM 4.6 MEQ/L (3.5-5.1); SODIUM LEVEL 140 MEQ/L (136-145); TOTAL PROTEIN 6.5 GM/DL (6.4-8.2)
[2017-05-24 18:46] LABS: BASO % 0.2 % (0.0-1.0); EOS % 0.7 % (0.0-3.0); LARGE UNSTAINED CELL % 1.1 % (0.0-4.0); LYMPH # 1.2 K/mm3 (1.5-4.5); LYMPH % 31.7 % (24.0-44.0); MEAN CORPUSCULAR HGB CONC 33.8 g/dl (32.0-36.5); MEAN CORPUSCULAR VOLUME 94.8 fl (80.0-96.0); MONO # 0.2 K/mm3 (0.0-0.8); MONO % 5.5 % (0.0-5.0); NEUTROPHILS # 2.2 K/mm3 (1.8-7.7); NEUTROPHILS % 60.9 % (36.0-66.0); PLATELET COUNT, AUTOMATED 244 k/mm3 (150-450); RED CELL DISTRIBUTION WIDTH 12.6 % (11.5-14.5); WHITE BLOOD COUNT 3.6 K/mm3 (4.0-10.0)
== END ==
LOC: M WUC 13:15
PROVIDERS: ATTEND Psychiatry & Neurology Neurology
DX: R56.9 Unspecified convulsions (principal)

== ENCOUNTER → 2017-05-24 | Outpatient (CLI) | payer MEDICAID ==
[2017-05-24 17:27] LABS: ANION GAP 8 MEQ/L (8-16); BLOOD UREA NITROGEN 10 MG/DL (7-18); CALCIUM LEVEL 8.5 MG/DL (8.5-10.1); CARBON DIOXIDE LEVEL 28 MEQ/L (21-32); CHLORIDE LEVEL 102 MEQ/L (98-107); CREATININE FOR GFR 0.57 MG/DL (0.70-1.30); FERRITIN 58 NG/ML (26-388); GLOMERULAR FILTRATION RATE > 60.0 (>60); GLUCOSE, FASTING 90 MG/DL (70-105); POTASSIUM SERUM 4.4 MEQ/L (3.5-5.1); SODIUM LEVEL 138 MEQ/L (136-145); TOTAL IRON BINDING CAPACITY 253 UG/DL (250-450)
[2017-05-24 17:56] LABS: VITAMIN B12 LEVEL 590 PG/ML (247-911)
[2017-05-24 17:57] LABS: FOLATE 11.6 NG/ML (>5.4)
[2017-05-24 18:17] LABS: BASO % 0.1 % (0.0-1.0); EOS % 0.9 % (0.0-3.0); LYMPH # 1.1 K/mm3 (1.5-4.5); MEAN CORPUSCULAR HEMOGLOBIN 32.6 pg (27.0-33.0); MEAN CORPUSCULAR HGB CONC 34.3 g/dl (32.0-36.5); MEAN CORPUSCULAR VOLUME 95.2 fl (80.0-96.0); MONO # 0.2 K/mm3 (0.0-0.8); MONO % 5.1 % (0.0-5.0); NEUTROPHILS # 2.2 K/mm3 (1.8-7.7); NEUTROPHILS % 61.5 % (36.0-66.0); RED CELL DISTRIBUTION WIDTH 12.6 % (11.5-14.5); RETIC HEMOGLOBIN CONTENT CHr 33.5 PG (24-36); RETICULOCYTE % 1.2 % (0.5-1.5); WHITE BLOOD COUNT 3.6 K/mm3 (4.0-10.0)
== END ==
LOC: M WUC 13:20
PROVIDERS: ATTEND Family Medicine
DX: E29.1 Testicular hypofunction (principal); D64.9 Anemia, unspecified; E87.1 Hypo-osmolality and hyponatremia; K21.9 Gastro-esophageal reflux disease without esophagitis
CPT/HCPCS: 80048; 82607; 82728; 82746; 83550; 84402; 84403; 85027; 85046; G0103

== ENCOUNTER → 2017-05-24 | Outpatient (CLI) | payer MEDICAID ==
[2017-05-24 17:08] LABS: BASO % 0.1 % (0.0-1.0); EOS % 0.6 % (0.0-3.0); LYMPH # 1.1 K/mm3 (1.5-4.5); LYMPH % 30.5 % (24.0-44.0); MEAN CORPUSCULAR HEMOGLOBIN 32.5 pg (27.0-33.0); MEAN CORPUSCULAR HGB CONC 34.4 g/dl (32.0-36.5); MEAN CORPUSCULAR VOLUME 94.4 fl (80.0-96.0); MONO # 0.2 K/mm3 (0.0-0.8); MONO % 6.6 % (0.0-5.0); NEUTROPHILS # 2.2 K/mm3 (1.8-7.7); NEUTROPHILS % 61.3 % (36.0-66.0); RED CELL DISTRIBUTION WIDTH 12.6 % (11.5-14.5); WHITE BLOOD COUNT 3.6 K/mm3 (4.0-10.0)
== END ==
LOC: M WUC 13:35
PROVIDERS: ATTEND Psychiatry & Neurology Psychiatry
DX: F25.0 Schizoaffective disorder, bipolar type (principal); Z79.899 Other long term (current) drug therapy
CPT/HCPCS: 85027; G0480

== ENCOUNTER 2017-05-29 13:50 | Inpatient (IN) | payer MEDICAID ==
[~2017-05-29] VITALS: Ht 167.6 cm; Wt 54.0 kg
[~2017-05-29 13:50] MED LIST changes: +DEPA500T2 PO; +MULT1TAB10 PO
[2017-05-29] MEDS ORDERED: HYDR50TA70 PO (14:11)
[2017-05-29 15:05] LABS: MEAN CORPUSCULAR HEMOGLOBIN 32.7 pg (27.0-33.0); MEAN CORPUSCULAR HGB CONC 34.5 g/dl (32.0-36.5); MEAN CORPUSCULAR VOLUME 94.9 fl (80.0-96.0); RED CELL DISTRIBUTION WIDTH 12.4 % (11.5-14.5); WHITE BLOOD COUNT 4.3 K/mm3 (4.0-10.0)
[2017-05-29 15:48] LABS: ALBUMIN 4.6 GM/DL (3.2-5.2); ALBUMIN/GLOBULIN RATIO 1.44 (1.00-1.93); ALKALINE PHOSPHATASE 140 U/L (45-117); ALT/SGPT 23 U/L (12-78); ANION GAP 9 MEQ/L (8-16); AST/SGOT 20 U/L (15-37); BILIRUBIN,DIRECT 0.1 MG/DL (0.0-0.2); BILIRUBIN,TOTAL 0.3 MG/DL (0.2-1.0); BLOOD UREA NITROGEN 8 MG/DL (7-18); CALCIUM LEVEL 9.4 MG/DL (8.5-10.1); CARBON DIOXIDE LEVEL 29 MEQ/L (21-32); CHLORIDE LEVEL 97 MEQ/L (98-107); GLOMERULAR FILTRATION RATE > 60.0 (>60); GLUCOSE, FASTING 76 MG/DL (70-105); MAGNESIUM LEVEL 2.1 MG/DL (1.8-2.4); POTASSIUM SERUM 4.1 MEQ/L (3.5-5.1); SODIUM LEVEL 135 MEQ/L (136-145); TOTAL PROTEIN 7.8 GM/DL (6.4-8.2)
[2017-05-29 16:59] LABS: METHADONE URINE NEGATIVE (NEGATIVE)
[2017-05-29] MEDS ORDERED: MOM 30ML SUSPENSION UDC PO PRN (18:45)
[2017-05-29] MEDS ORDERED: DIVA500T3 PO (18:55)
[2017-05-29] MEDS ORDERED: BENZ-52 PO (18:55)
[2017-05-29] MEDS ORDERED: OXCA300T PO (18:55)
[2017-05-29] MEDS ORDERED: HALD100I2 IM (18:55)
[2017-05-29] MEDS: DIVALPROEX 500MG *ER* TAB PO SCH (22:31)
[2017-05-29] MEDS: HALOPERIDOL 10 MG TAB PO SCH (22:31)
[2017-05-29] MEDS: LORazepam 1 MG TAB PO SCH (22:32)
[2017-05-29] MEDS: carBAMazepine XR 200 MG TAB PO SCH (22:32)
[2017-05-30] MEDS: traZODone 50 MG TAB PO PRN (00:20)
[2017-05-30] MEDS: LORazepam 1 MG TAB PO SCH ×4 (06:21→17:50)
[2017-05-30 07:04] VITALS: BP 139/92
[2017-05-30] MEDS: HALOPERIDOL 10 MG TAB PO SCH ×4 (08:36→21:00)
[2017-05-30] MEDS: DIVALPROEX 500MG *ER* TAB PO SCH ×3 (08:36→21:00)
[2017-05-30] MEDS: carBAMazepine XR 200 MG TAB PO SCH (08:36)
[2017-05-30] MEDS ORDERED: OLANZapine 10 MG TAB PO SCH (09:00)
[2017-05-30] MEDS ORDERED: ALBUTEROL 90 MCG/ACT 8GM HFA INHALER INH PRN (09:45)
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
[2017-05-30] MEDS: OXcarbazepine 300 MG TAB PO SCH ×2 (11:47→21:00)
[2017-05-30] MEDS: MAALOX 30 ML SUSP *UDC PO PRN (12:34)
[2017-05-30] MEDS ORDERED: BENZTROPINE 1 MG TAB PO ONE (17:45)
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
[2017-05-30 18:16] VITALS: BP 134/78
[2017-05-30] MEDS: carBAMazepine 100 MG *1/2* TAB PO SCH (21:00)
[2017-05-31] MEDS: LORazepam 1 MG TAB PO SCH ×4 (06:00→17:08)
[2017-05-31 07:11] VITALS: BP 146/65
[2017-05-31 08:06] LABS: MEAN CORPUSCULAR HEMOGLOBIN 32.1 pg (27.0-33.0); MEAN CORPUSCULAR HGB CONC 35.1 g/dl (32.0-36.5); MEAN CORPUSCULAR VOLUME 91.3 fl (80.0-96.0); RED CELL DISTRIBUTION WIDTH 12.4 % (11.5-14.5); WHITE BLOOD COUNT 2.8 K/mm3 (4.0-10.0)
[2017-05-31 08:20] LABS: ANION GAP 10 MEQ/L (8-16); BLOOD UREA NITROGEN 6 MG/DL (7-18); CALCIUM LEVEL 8.7 MG/DL (8.5-10.1); CARBON DIOXIDE LEVEL 26 MEQ/L (21-32); CHLORIDE LEVEL 89 MEQ/L (98-107); CREATININE FOR GFR 0.53 MG/DL (0.70-1.30); GLOMERULAR FILTRATION RATE > 60.0 (>60); GLUCOSE, FASTING 77 MG/DL (70-105); POTASSIUM SERUM 4.5 MEQ/L (3.5-5.1)
[2017-05-31] MEDS: DIVALPROEX 500MG *ER* TAB PO SCH ×3 (08:33→20:38)
[2017-05-31] MEDS: HALOPERIDOL 10 MG TAB PO SCH ×4 (08:33→20:37)
[2017-05-31] MEDS: carBAMazepine 100 MG *1/2* TAB PO SCH ×2 (08:33→20:37)
[2017-05-31] MEDS: BENZTROPINE 1 MG TAB PO SCH (08:33)
[2017-05-31] MEDS: OXcarbazepine 300 MG TAB PO SCH ×2 (08:33→20:37)
[2017-05-31 08:54] LABS: SODIUM LEVEL 125 MEQ/L (136-145)
[2017-05-31] MEDS: IBUPROFEN 600 MG TAB PO PRN (16:10)
[2017-05-31 18:10] VITALS: BP 130/82
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
[2017-05-31] MEDS: ACETAMINOPHEN TAB 650MG DOSE (2X325MG) PO PRN (20:38)
--- NOTE | 2017-05-31 22:38 | ECGEPIP ---
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
[2017-06-01] MEDS: LORazepam 1 MG TAB PO SCH ×5 (06:20→23:27)
[2017-06-01 07:22] VITALS: BP 135/77
[2017-06-01 07:44] LABS: ANION GAP 8 MEQ/L (8-16); BLOOD UREA NITROGEN 6 MG/DL (7-18); CALCIUM LEVEL 8.6 MG/DL (8.5-10.1); CARBON DIOXIDE LEVEL 26 MEQ/L (21-32); CHLORIDE LEVEL 87 MEQ/L (98-107); CREATININE FOR GFR 0.57 MG/DL (0.70-1.30); GLOMERULAR FILTRATION RATE > 60.0 (>60); GLUCOSE, FASTING 79 MG/DL (70-105); POTASSIUM SERUM 4.1 MEQ/L (3.5-5.1); SODIUM LEVEL 121 MEQ/L (136-145)
[2017-06-01] MEDS: DIVALPROEX 500MG *ER* TAB PO SCH ×2 (08:02→20:20)
[2017-06-01] MEDS: HALOPERIDOL 10 MG TAB PO SCH ×4 (08:02→20:19)
[2017-06-01] MEDS: carBAMazepine 100 MG *1/2* TAB PO SCH ×2 (08:02→20:20)
[2017-06-01] MEDS: BENZTROPINE 1 MG TAB PO SCH (08:02)
[2017-06-01] MEDS: OXcarbazepine 300 MG TAB PO SCH (08:02)
[2017-06-01] MEDS: IBUPROFEN 600 MG TAB PO PRN ×2 (08:21→14:31)
[2017-06-01] MEDS ORDERED: HALOPERIDOL DECANOATE 100 MG/ML VIAL (J1631) IM SCH (09:00)
[2017-06-01] MEDS: MAALOX 30 ML SUSP *UDC PO PRN (10:21)
[2017-06-01] MEDS ORDERED: LORazepam 1 MG TAB PO STA (10:40)
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
[2017-06-01] MEDS: lamoTRIgine 25 MG TAB PO SCH ×2 (13:35→20:19)
[2017-06-01] MEDS ORDERED: LORazepam 1 MG TAB PO SCH (16:00)
[2017-06-01 18:00] VITALS: BP 136/89
[2017-06-01] MEDS: ACETAMINOPHEN TAB 650MG DOSE (2X325MG) PO PRN (18:03)
[2017-06-01] MEDS ORDERED: OXcarbazepine 300 MG TAB PO ONE (21:00)
[2017-06-01] MEDS ORDERED: lamoTRIgine 25 MG TAB PO SCH (21:00)
[2017-06-01] MEDS ORDERED: OXcarbazepine 300 MG TAB PO SCH (21:00)
[2017-06-01] MEDS: traZODone 50 MG TAB PO PRN (21:56)
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
[2017-06-02 06:00] VITALS: BP 129/65
[2017-06-02] MEDS: LORazepam 1 MG TAB PO SCH ×4 (06:37→23:26)
[2017-06-02] MEDS: ACETAMINOPHEN TAB 650MG DOSE (2X325MG) PO PRN ×2 (06:47→15:57)
[2017-06-02 07:59] LABS: ANION GAP 12 MEQ/L (8-16); BLOOD UREA NITROGEN 7 MG/DL (7-18); CARBON DIOXIDE LEVEL 23 MEQ/L (21-32); CHLORIDE LEVEL 89 MEQ/L (98-107); CREATININE FOR GFR 0.49 MG/DL (0.70-1.30); GLOMERULAR FILTRATION RATE > 60.0 (>60); GLUCOSE, FASTING 87 MG/DL (70-105); POTASSIUM SERUM 4.3 MEQ/L (3.5-5.1); SODIUM LEVEL 124 MEQ/L (136-145)
[2017-06-02] MEDS ORDERED: OXcarbazepine 300 MG TAB PO SCH (09:00)
[2017-06-02] MEDS ORDERED: carBAMazepine 100 MG *1/2* TAB PO SCH (09:00)
[2017-06-02] MEDS: HALOPERIDOL 10 MG TAB PO SCH ×4 (09:04→20:35)
[2017-06-02] MEDS: lamoTRIgine 25 MG TAB PO SCH ×2 (09:05→20:35)
[2017-06-02] MEDS: DIVALPROEX 500MG *ER* TAB PO SCH ×2 (09:06→20:35)
[2017-06-02] MEDS: carBAMazepine 100 MG *1/2* TAB PO SCH ×2 (09:06→20:35)
[2017-06-02] MEDS: BENZTROPINE 1 MG TAB PO SCH (09:06)
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
[2017-06-02] MEDS: IBUPROFEN 600 MG TAB PO PRN ×2 (13:09→20:36)
--- NOTE | 2017-06-02 15:07 | MHIPNPDOC ---
[facility] Progress Note Progress Note DATE OF SERVICE: 06/02/17 HISTORY: Seen sitting in room with casted foot elevated. Feels "good" today, denies experiencing anxiety or irritability. Does not mention paranoia today. Patient questions when he will be starting Clozaril and when he will be returning to [facility]. Staff from [facility] called and asked about possible discharge times for patient. He has remained calm and cooperative with staff here, only minor irritability, requires frequent redirection regarding his fluid restriction but has not become aggressive over it. He was seen yesterday by Neurology for management of his seizure disorder in preparation to discontinue his old AED regimen so that he would have fewer interactions with Clozaril, will plan to follow their recommendations. VITAL SIGNS: See below. NEW TEST RESULTS: Sodium levels improving. CURRENT MEDICATIONS: See below. MENTAL STATUS EXAMINATION: 36 year old male who appears stated age; dressed in [facility]; calm and cooperative; appropriate eye contact. Speech has a broken rhythm, some word- searching evident, even tone and volume. Thought processes appear concrete, goal -oriented, logical; associations are intact, abstraction and memory are impaired due to his TBI history. Denies SI/HI/AVH, no evidence of paranoia or delusions today. Mood is "good", affect is neutral, blunted range, congruent to stated thought content. Insight appears fair, judgement appears fair. 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 Since his admission he has not been volatile with staff here. He has a known history of psychogenic polydipsia with resultant hyponatremia, this has played a small factor in his current admission, however he has been amenable to fluid restriction and redirection at this time. His outpatient psychiatrist recommended that he be switched to Clozaril and therefore patient is in the middle of an AED cross-taper to minimize risk of iatrogenic leukopenia. Patient has been tolerating the crossover well and has been calm and compliant with staff throughout his stay. He reported some increased paranoia initially but this appears to have resolved for the time being after receiving his regularly scheduled Haldol Decanoate. MANAGEMENT PLAN: continue current psychotropic with plan to initiate Clozaril once patient's WBC count stabilizes and he is no longer on Trileptal and Tegretol. Following Neurology recommendations for AED, plan to DC Trileptal tomorrow and continue Tegretol 100mg BID for 3-5 days; Neurology plans to reassess patient over the weekend. Continue Lamictal 25mg BID and Depakote 500mg BID. Begin discharge planning for patient, may initiate Clozaril prior to discharge if patient is unstable. TIME SPENT: 15 minutes. Vital Signs Vital Signs Date Time Temp Pulse Resp B/P (MAP) Pulse Ox O2 Delivery O2 Flow Rate FiO2 06/02/17 06:00 98.4 86 18 129/65 (86) Room Air 05/30/17 07:04 99 Laboratory Data 24H Labs Laboratory Tests 2 06/02/17 07:25: Anion Gap 12, Glomerular Filtration Rate > 60.0, Blood Urea Nitrogen 7, Creatinine 0.49L, Sodium Level 124L, Potassium Level 4.3, Chloride Level 89L, Carbon Dioxide Level 23, Calcium Level 9.0 CBC/BMP Laboratory Tests 06/02/17 07:25 Calcium Level 9.0 Current Medications Current Medications Acetaminophen (Tylenol Tab) 650 mg Q6HP PRN PO HEADACHE or DISCOMFORT Last administered on 06/02/17 06:47; Start 05/29/17 at 18:45; Stop 06/28/17 at 18:44 Al Hydrox/Mg Hydrox/Simethicone (Mylanta) 30 ml Q4HP PRN PO HEARTBURN/ INDIGESTION Last administered on 06/01/17 10:21; Start 05/29/17 at 18:45; Stop 06/28/17 at 18:44 Albuterol Sulfate (Proventil, Ventolin Hfa) 2 puff Q4HP PRN INH SHORTNESS OF BREATH; Start 05/30/17 at 09:45; Stop 06/29/17 at 09:44 Benztropine Mesylate (Cogentin) 1 mg DAILY PO Last administered on 06/02/17 09 :06; Start 05/31/17 at 09:00; Stop 06/30/17 at 08:59 Carbamazepine (TEGretol XR) 200 mg BID PO Last administered on 05/30/17 08:36; Start 05/29/17 at 21:00; Stop 05/30/17 at 11:07; Status DC Carbamazepine (TEGretol) 100 mg BID PO Last administered on 06/02/17 09:06; Start 06/01/17 at 21:00; Stop 07/01/17 at 20:59 Carbamazepine (TEGretol) 100 mg BID PO Last administered on 06/01/17 08:02; Start 05/30/17 at 21:00; Stop 06/01/17 at 10:56; Status DC Carbamazepine (TEGretol) 100 mg DAILY PO ; Start 06/02/17 at 09:00; Stop at 20:59; Status Cancel Diphenhydramine HCl (Benadryl) 50 mg Q4HP PRN PO AGITATION; Start 05/29/17 at 18 :45; Stop 06/28/17 at 18:44 Divalproex Sodium (Depakote Er) 500 mg BID PO Last administered on 06/02/17 09 :06; Start 06/01/17 at 21:00; Stop 06/28/17 at 20:59 Divalproex Sodium (Depakote Er) 500 mg TID PO Last administered on 06/01/17 08 :02; Start 05/29/17 at 21:00; Stop 06/01/17 at 10:52; Status DC Haloperidol (Haldol) 10 mg QID PO Last administered on 06/02/17 12:09; Start 05/29/17 at 21:00; Stop 06/28/17 at 20:59 Haloperidol Decanoate (Haldol Decanoate) 100 mg Q21D@0900 IM Last administered on 06/01/17 16:57; Start 06/01/17 at 09:00; Stop 07/01/17 at 08:59 Home Med (Med Rec Complete!) ASDIRECTED XX ; Start 05/29/17 at 19:00; Stop at 19:00; Status DC Hydroxyzine HCl (Atarax) 50 mg Q4HP PRN PO ANXIETY/AGITATION; Start 05/29/17 at 19:00; Stop 06/28/17 at 18:59 Ibuprofen (Advil) 600 mg Q6HP PRN PO MODERATE PAIN (PS 5-7) Last administered on 06/02/17 13:09; Start 05/31/17 at 11:45; Stop 06/30/17 at 11:44 Lamotrigine (LaMICtal) 25 mg BID PO Last administered on 06/02/17 09:05; Start 06/01/17 at 09:00; Stop 07/01/17 at 08:59 Lamotrigine (LaMICtal) 25 mg QHS PO ; Start 06/01/17 at 21:00; Stop 06/01/17 at 21:00; Status DC Lorazepam (Ativan) 1 mg Q6H PO Last administered on 06/02/17 12:09; Start 05/29 at 18:00; Stop 06/05/17 at 17:59 Lorazepam (Ativan) 1 mg STAT STAT PO Last administered on 06/01/17 11:27; Start 06/01/17 at 10:40; Stop 06/01/17 at 10:42; Status DC Lorazepam (Ativan) 1 mg TID PO ; Start 06/01/17 at 16:00; Stop 06/08/17 at 15:59 ; Status UNV Magnesium Hydroxide (Milk Of Magnesia) 30 ml DAILYPRN PRN PO CONSTIPATION; Start 05/29/17 at 18:45; Stop 06/28/17 at 18:44 Miscellaneous (Unresolved Clarification Entry) SEE LABEL COMMENTS UNRESOLVED XX ; Start 06/01/17 at 00:01; Stop 06/01/17 at 16:37; Status DC Olanzapine (ZyPREXA) 10 mg QAM PO ; Start 05/30/17 at 09:00; Stop 06/29/17 at 08: 59; Status Cancel Oxcarbazepine (Trileptal) 300 mg BID PO ; Start 06/01/17 at 21:00; Stop at 21:00; Status DC Oxcarbazepine (Trileptal) 300 mg BID PO Last administered on 06/01/17 08:02; Start 05/30/17 at 09:00; Stop 06/01/17 at 10:53; Status DC Oxcarbazepine (Trileptal) 300 mg DAILY PO Last administered on 06/02/17 09:06 ; Start 06/02/17 at 09:00; Stop 06/03/17 at 12:00 Trazodone HCl (Desyrel) 50 mg QHSP PRN PO INSOMNIA Last administered on 21:56; Start 05/29/17 at 18:45; Stop 06/28/17 at 18:44 Allergies Coded Allergies: Codeine (Verified Allergy, Intermediate, 05/29/17) Penicillins (Verified Allergy, Intermediate, 01/16/17) SHANNON MENDEZ MD Jun 02, 2017 15:07
[2017-06-02 18:00] VITALS: BP 134/78
[2017-06-02] MEDS: diphenhydrAMINE 25 MG CAP PO PRN (20:35)
[2017-06-02] MEDS: hydrOXYzine 50 MG TAB PO PRN (20:35)
[2017-06-02] MEDS: traZODone 50 MG TAB PO PRN (20:35)
[2017-06-03] MEDS: LORazepam 1 MG TAB PO SCH ×4 (06:15→23:23)
[2017-06-03 06:56] VITALS: BP 158/88
[2017-06-03 07:05] LABS: BASO % 0.2 % (0.0-1.0); EOS # 0.1 K/mm3 (0.0-0.50); EOS % 2.3 % (0.0-3.0); LARGE UNSTAINED CELL # 0.1 K/mm3 (0.0-0.4); LARGE UNSTAINED CELL % 1.8 % (0.0-4.0); LYMPH # 1.1 K/mm3 (1.5-4.5); LYMPH % 33.9 % (24.0-44.0); MEAN CORPUSCULAR HEMOGLOBIN 32.3 pg (27.0-33.0); MEAN CORPUSCULAR HGB CONC 34.3 g/dl (32.0-36.5); MEAN CORPUSCULAR VOLUME 94.1 fl (80.0-96.0); MONO # 0.3 K/mm3 (0.0-0.8); MONO % 10.8 % (0.0-5.0); NEUTROPHILS # 1.6 K/mm3 (1.8-7.7); PLATELET COUNT, AUTOMATED 331 k/mm3 (150-450); RED CELL DISTRIBUTION WIDTH 12.9 % (11.5-14.5); WHITE BLOOD COUNT 3.2 K/mm3 (4.0-10.0)
[2017-06-03 07:23] LABS: ANION GAP 11 MEQ/L (8-16); BLOOD UREA NITROGEN 8 MG/DL (7-18); CALCIUM LEVEL 8.8 MG/DL (8.5-10.1); CARBON DIOXIDE LEVEL 23 MEQ/L (21-32); CHLORIDE LEVEL 98 MEQ/L (98-107); CREATININE FOR GFR 0.59 MG/DL (0.70-1.30); GLOMERULAR FILTRATION RATE > 60.0 (>60); GLUCOSE, FASTING 81 MG/DL (70-105); POTASSIUM SERUM 4.8 MEQ/L (3.5-5.1); SODIUM LEVEL 132 MEQ/L (136-145)
[2017-06-03] MEDS: DIVALPROEX 500MG *ER* TAB PO SCH ×2 (08:08→20:00)
[2017-06-03] MEDS: carBAMazepine 100 MG *1/2* TAB PO SCH ×2 (08:08→20:00)
[2017-06-03] MEDS: HALOPERIDOL 10 MG TAB PO SCH ×4 (08:09→20:00)
[2017-06-03] MEDS: BENZTROPINE 1 MG TAB PO SCH (08:09)
[2017-06-03] MEDS: lamoTRIgine 25 MG TAB PO SCH ×2 (08:09→20:00)
[2017-06-03] MEDS: ACETAMINOPHEN TAB 650MG DOSE (2X325MG) PO PRN ×2 (08:10→21:11)
[2017-06-03] MEDS: diphenhydrAMINE 25 MG CAP PO PRN (10:57)
[2017-06-03] MEDS: IBUPROFEN 600 MG TAB PO PRN (15:37)
[2017-06-03 18:00] VITALS: BP 124/62
[2017-06-03] MEDS: diphenhydrAMINE 50 MG CAP PO PRN (18:18)
[2017-06-03] MEDS: traZODone 50 MG TAB PO PRN (20:00)
[2017-06-03] MEDS: hydrOXYzine 50 MG TAB PO PRN (20:00)
[2017-06-04] MEDS: LORazepam 1 MG TAB PO SCH ×3 (06:05→17:23)
[2017-06-04] MEDS: hydrOXYzine 50 MG TAB PO PRN (07:10)
[2017-06-04] MEDS: diphenhydrAMINE 50 MG CAP PO PRN (07:10)
[2017-06-04] MEDS: IBUPROFEN 600 MG TAB PO PRN ×3 (07:10→19:30)
[2017-06-04 07:36] LABS: ANION GAP 7 MEQ/L (8-16); BLOOD UREA NITROGEN 9 MG/DL (7-18); CALCIUM LEVEL 8.9 MG/DL (8.5-10.1); CARBON DIOXIDE LEVEL 26 MEQ/L (21-32); CHLORIDE LEVEL 102 MEQ/L (98-107); CREATININE FOR GFR 0.66 MG/DL (0.70-1.30); GLOMERULAR FILTRATION RATE > 60.0 (>60); GLUCOSE, FASTING 86 MG/DL (70-105); POTASSIUM SERUM 4.5 MEQ/L (3.5-5.1); SODIUM LEVEL 135 MEQ/L (136-145)
[2017-06-04] MEDS: carBAMazepine 100 MG *1/2* TAB PO SCH (08:40)
[2017-06-04] MEDS: DIVALPROEX 500MG *ER* TAB PO SCH ×2 (08:40→21:14)
[2017-06-04] MEDS: lamoTRIgine 25 MG TAB PO SCH ×2 (08:40→21:13)
[2017-06-04] MEDS: HALOPERIDOL 10 MG TAB PO SCH ×4 (08:40→21:13)
[2017-06-04] MEDS: BENZTROPINE 1 MG TAB PO SCH (08:40)
--- NOTE | 2017-06-04 15:09 | MHIPN ---
DATE: 06/03/2017 The patient today states, "I am good." His only complaint is his foot and he continues on one-to-one observation. Staff has to continually tell him to keep the foot elevated. MENTAL STATUS EXAMINATION: The patient is a very poor historian and he continues to have ongoing paranoid delusions and disorganized thinking. His mood is fine. Affect is flat. He is not voicing any suicidal or homicidal ideations. Concentration is fair. Insight and judgment poor. DIAGNOSES: 1. Paranoid schizophrenia. 2. Traumatic brain injury. TREATMENT PLAN: At this point, we will continue to monitor the patient on one-to-one observation level. We will continue to titrate his medications as indicated.
[2017-06-04] MEDS: ACETAMINOPHEN TAB 650MG DOSE (2X325MG) PO PRN (16:43)
[2017-06-04 18:40] VITALS: BP 122/69
[2017-06-04] MEDS: traZODone 50 MG TAB PO PRN (21:14)
[2017-06-05] MEDS: LORazepam 1 MG TAB PO SCH ×3 (06:01→12:13)
--- NOTE | 2017-06-05 06:44 | IPN ---
DATE OF SERVICE: 06/04/2017 The patient today states that he is doing fine. He is not focusing on his foot today, but other than that he just put his head down and he did not answer any other questions. He is continued on one-to-one observation. MENTAL STATUS EXAMINATION: As is said, I did not really do a formal mental status exam other than the fact that he said that his mood was fine. His affect was flat. Insight and judgment is poor. DIAGNOSIS: Paranoid schizophrenia and traumatic brain injury. TREATMENT PLAN: We will continue patient on one-to-one observation and we will continue to monitor him for stabilization of his mood and resolution of any aggressive behavior.
[2017-06-05 06:50] VITALS: BP 132/85
[2017-06-05] MEDS: HALOPERIDOL 10 MG TAB PO SCH ×3 (08:08→16:16)
[2017-06-05] MEDS: BENZTROPINE 1 MG TAB PO SCH (08:08)
[2017-06-05] MEDS: lamoTRIgine 25 MG TAB PO SCH (08:08)
[2017-06-05] MEDS: IBUPROFEN 600 MG TAB PO PRN (08:09)
[2017-06-05] MEDS: DIVALPROEX 500MG *ER* TAB PO SCH (08:09)
[2017-06-05 09:11] LABS: ANION GAP 7 MEQ/L (8-16); BLOOD UREA NITROGEN 6 MG/DL (7-18); CALCIUM LEVEL 8.8 MG/DL (8.5-10.1); CARBON DIOXIDE LEVEL 28 MEQ/L (21-32); CHLORIDE LEVEL 104 MEQ/L (98-107); GLOMERULAR FILTRATION RATE > 60.0 (>60); GLUCOSE, FASTING 56 MG/DL (70-105); POTASSIUM SERUM 4.6 MEQ/L (3.5-5.1); SODIUM LEVEL 139 MEQ/L (136-145)
[2017-06-05] MEDS ORDERED: HALO10TA2 PO (11:07)
[2017-06-05] MEDS ORDERED: HYDRO50TAB PO (11:07)
[2017-06-05] MEDS ORDERED: DIPH50CA PO (11:07)
[2017-06-05] MEDS ORDERED: HALO10AM IM ×2 (11:07→11:28)
[2017-06-05] MEDS ORDERED: LORA1TAB12 PO (11:07)
[2017-06-05] MEDS ORDERED: DEPA500T2 PO (11:07)
[2017-06-05] MEDS ORDERED: LAMI25TA PO (11:07)
[2017-06-05] MEDS ORDERED: TRAZ50TA11 PO (11:26)
[2017-06-05] MEDS: ACETAMINOPHEN TAB 650MG DOSE (2X325MG) PO PRN (16:16)
[2017-06-05] MEDS ORDERED: traZODone 50 MG TAB PO SCH (21:00)
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
== END 2017-06-05 17:00 | disposition home or self-care (01) | DRG 750 ==
LOC: M ED 13:50 → M ED INP 18:31 → M PSY 20:57
PROVIDERS: ADMIT Psychiatry & Neurology Psychiatry; ATTEND Psychiatry & Neurology Psychiatry
DX: F20.0 Paranoid schizophrenia (principal); F01.51 Vascular dementia, unspecified severity, with behavioral disturbance; G40.909 Epilepsy, unspecified, not intractable, without status epilepticus; E87.1 Hypo-osmolality and hyponatremia; Z79.899 Other long term (current) drug therapy; R63.1 Polydipsia

== ENCOUNTER → 2017-06-08 | Outpatient (CLI) | payer MEDICAID ==
[~2017-06-08] MED LIST changes: +BENZ-52 PO; +CLON0.5T PO; +DIVA500T3 PO; +HALO10AM IM; +HALO10TA2 PO; +HALO1TAB29 PO; +HYDR50TA70 PO; +HYDRO50TAB PO; +IBUP1TAB6 PO; +LAMI25TA PO; +LORA1TAB12 PO; +OLAN5ZYD PO; +OXCA300T PO; +RISP1TAB42 PO; +SERT50TA PO; +TRAZ50TA11 PO; +TRAZO50TA PO; +VIMP50TA3 PO
[2017-06-08 19:36] LABS: BASO % 0.6 % (0.0-1.0); EOS % 0.8 % (0.0-3.0); LARGE UNSTAINED CELL # 0.1 K/mm3 (0.0-0.4); LARGE UNSTAINED CELL % 1.3 % (0.0-4.0); LYMPH # 1.4 K/mm3 (1.5-4.5); LYMPH % 30.1 % (24.0-44.0); MEAN CORPUSCULAR HEMOGLOBIN 32.1 pg (27.0-33.0); MEAN CORPUSCULAR HGB CONC 33.8 g/dl (32.0-36.5); MEAN CORPUSCULAR VOLUME 94.9 fl (80.0-96.0); MONO # 0.4 K/mm3 (0.0-0.8); NEUTROPHILS # 2.6 K/mm3 (1.8-7.7); NEUTROPHILS % 58.2 % (36.0-66.0); PLATELET COUNT, AUTOMATED 250 k/mm3 (150-450); RED CELL DISTRIBUTION WIDTH 12.5 % (11.5-14.5); WHITE BLOOD COUNT 4.4 K/mm3 (4.0-10.0)
== END ==
LOC: M WUC 17:45
PROVIDERS: ATTEND Psychiatry & Neurology Psychiatry
DX: Z79.899 Other long term (current) drug therapy (principal)

== ENCOUNTER → 2017-06-08 | Outpatient (CLI) | payer MEDICAID ==
[2017-06-08 20:43] LABS: OSMOLALITY SERUM 287 MOSM/KG (275-295)
[2017-06-08 20:54] LABS: ALBUMIN 3.8 GM/DL (3.2-5.2); ANION GAP 7 MEQ/L (8-16); BLOOD UREA NITROGEN 10 MG/DL (7-18); CALCIUM LEVEL 8.9 MG/DL (8.5-10.1); CARBON DIOXIDE LEVEL 29 MEQ/L (21-32); CHLORIDE LEVEL 105 MEQ/L (98-107); CREATININE FOR GFR 0.66 MG/DL (0.70-1.30); GLOMERULAR FILTRATION RATE > 60.0 (>60); GLUCOSE, FASTING 88 MG/DL (70-105); PHOSPHORUS LEVEL 4.4 MG/DL (2.5-4.9); POTASSIUM SERUM 4.2 MEQ/L (3.5-5.1); SODIUM LEVEL 141 MEQ/L (136-145); URIC ACID 2.3 MG/DL (3.5-7.2)
== END ==
LOC: M WUC 17:40
PROVIDERS: ATTEND Internal Medicine Nephrology
DX: E87.1 Hypo-osmolality and hyponatremia (principal)

== ENCOUNTER 2017-06-16 17:34 | Emergency (ER) | payer MEDICAID ==
[~2017-06-16] VITALS: Ht 180.3 cm; Wt 59.1 kg
[2017-06-16 17:34] VITALS: BP 135/72
[~2017-06-16 17:34] MED LIST changes: -CLON0.5T PO; -HALO1TAB29 PO; -IBUP1TAB6 PO; -OLAN5ZYD PO; -RISP1TAB42 PO; -SERT50TA PO; -TRAZO50TA PO; -VIMP50TA3 PO
[2017-06-16] MEDS ORDERED: LORazepam 1 MG TAB PO STA (18:20)
[2017-06-16] MEDS ORDERED: LORA1TAB12 PO (18:27)
== END 2017-06-16 18:45 | disposition home or self-care (01) ==
LOC: M ED 17:34
DX: Z76.0 Encounter for issue of repeat prescription (principal); F20.9 Schizophrenia, unspecified; F17.200 Nicotine dependence, unspecified, uncomplicated; Z79.899 Other long term (current) drug therapy; Z88.5 Allergy status to narcotic agent; Z88.0 Allergy status to penicillin

== ENCOUNTER 2017-06-18 21:12 | Inpatient (IN) | payer MEDICAID ==
[~2017-06-18] VITALS: Ht 167.6 cm; Wt 50.9 kg
[~2017-06-18 21:12] MED LIST changes: +traZODone 50 MG TAB PO SCH
[2017-06-18] MEDS ORDERED: HALOPERIDOL 5 MG/ML VIAL (J1630) IM STA (22:02)
[2017-06-18] MEDS ORDERED: diphenhydrAMINE INJ 50MG/ML VIAL (J1200) IM ONE (22:15)
[2017-06-18 22:29] LABS: MEAN CORPUSCULAR HEMOGLOBIN 32.3 pg (27.0-33.0); MEAN CORPUSCULAR VOLUME 95.1 fl (80.0-96.0); RED CELL DISTRIBUTION WIDTH 12.9 % (11.5-14.5); WHITE BLOOD COUNT 3.5 K/mm3 (4.0-10.0)
[2017-06-18] MEDS ORDERED: OLANZapine ORAL DISINTEGRATING TAB 5MG PO PRN (22:45)
[2017-06-18 22:59] LABS: METHADONE URINE NEGATIVE (NEGATIVE)
[2017-06-18 23:09] LABS: ALBUMIN 3.8 GM/DL (3.2-5.2); ALBUMIN/GLOBULIN RATIO 1.27 (1.00-1.93); ALKALINE PHOSPHATASE 96 U/L (45-117); ALT/SGPT 71 U/L (12-78); ANION GAP 11 MEQ/L (8-16); AST/SGOT 25 U/L (15-37); BILIRUBIN,DIRECT < 0.1 MG/DL (0.0-0.2); BILIRUBIN,TOTAL 0.2 MG/DL (0.2-1.0); BLOOD UREA NITROGEN 14 MG/DL (7-18); CALCIUM LEVEL 7.9 MG/DL (8.5-10.1); CARBON DIOXIDE LEVEL 26 MEQ/L (21-32); CHLORIDE LEVEL 104 MEQ/L (98-107); CREATININE FOR GFR 0.71 MG/DL (0.70-1.30); GLOMERULAR FILTRATION RATE > 60.0 (>60); GLUCOSE, FASTING 86 MG/DL (70-105); POTASSIUM SERUM 4.4 MEQ/L (3.5-5.1); SODIUM LEVEL 141 MEQ/L (136-145); TOTAL PROTEIN 6.8 GM/DL (6.4-8.2)
[2017-06-18] MEDS ORDERED: LAMI25TA PO (23:09)
[2017-06-18] MEDS ORDERED: LORA1TAB12 PO (23:09)
[2017-06-18] MEDS ORDERED: HALO1TAB29 PO (23:09)
[2017-06-18] MEDS ORDERED: DIPH50CA PO (23:09)
[2017-06-18] MEDS ORDERED: BENZ-52 PO (23:09)
[2017-06-18] MEDS ORDERED: HYDR50TA70 PO (23:09)
[2017-06-18] MEDS ORDERED: DEPA500T2 PO (23:09)
[2017-06-18] MEDS ORDERED: TRAZ50TA11 PO (23:09)
[2017-06-18] MEDS ORDERED: HALD100I2 IM (23:11)
[2017-06-18] MEDS ORDERED: hydrOXYzine 50 MG TAB PO PRN (23:45)
[2017-06-18] MEDS ORDERED: MOM 30ML SUSPENSION UDC PO PRN (23:45)
[2017-06-19 00:31] VITALS: BP 101/77
[2017-06-19 06:00] VITALS: BP 111/69
[2017-06-19] MEDS: ACETAMINOPHEN TAB 650MG DOSE (2X325MG) PO PRN ×2 (06:41→13:57)
[2017-06-19] MEDS: DIVALPROEX 500MG *ER* TAB PO SCH ×2 (08:36→21:53)
[2017-06-19] MEDS: DOCUSATE SODIUM 100 MG CAP PO SCH ×2 (08:36→21:53)
[2017-06-19] MEDS: BENZTROPINE 1 MG TAB PO SCH (08:36)
[2017-06-19] MEDS: MULTIVITAMINS/MINERALS THERAP 1 TAB PO SCH (08:36)
[2017-06-19] MEDS: lamoTRIgine 25 MG TAB PO SCH ×2 (08:37→21:52)
[2017-06-19] MEDS: LORazepam 1 MG TAB PO SCH ×4 (08:37→21:52)
[2017-06-19] MEDS: FAMOTIDINE 20 MG TAB PO SCH ×2 (08:37→21:52)
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
[2017-06-19] MEDS ORDERED: ALBUTEROL 90 MCG/ACT 8GM HFA INHALER INH PRN (09:45)
--- NOTE | 2017-06-19 15:08 | ECGEPIP ---
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 No significant change compared with 05/30/2017. Electronically Signed On 06-19-2017 15:08:27 EDT by Darin Gonzalez
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
[2017-06-19 18:00] VITALS: BP 125/73
[2017-06-19] MEDS: diphenhydrAMINE 50 MG CAP PO PRN (18:22)
[2017-06-19] MEDS: traZODone 50 MG TAB PO SCH (21:52)
[2017-06-20 06:27] VITALS: BP 125/65
[2017-06-20 07:28] LABS: MEAN CORPUSCULAR HEMOGLOBIN 32.1 pg (27.0-33.0); MEAN CORPUSCULAR VOLUME 97.3 fl (80.0-96.0); PLATELET COUNT, AUTOMATED 177 k/mm3 (150-450); RED CELL DISTRIBUTION WIDTH 12.8 % (11.5-14.5); WHITE BLOOD COUNT 2.1 K/mm3 (4.0-10.0)
[2017-06-20 07:41] LABS: ANION GAP 8 MEQ/L (8-16); BLOOD UREA NITROGEN 11 MG/DL (7-18); CALCIUM LEVEL 8.6 MG/DL (8.5-10.1); CARBON DIOXIDE LEVEL 28 MEQ/L (21-32); CHLORIDE LEVEL 106 MEQ/L (98-107); CREATININE FOR GFR 0.61 MG/DL (0.70-1.30); FERRITIN 59 NG/ML (26-388); GLOMERULAR FILTRATION RATE > 60.0 (>60); GLUCOSE, FASTING 73 MG/DL (70-105); PERCENT SATURATION 21.6 % (19.7-50.0); POTASSIUM SERUM 4.3 MEQ/L (3.5-5.1); SODIUM LEVEL 142 MEQ/L (136-145); T UPTAKE 37 % (33-40); THYROXINE (T4) 9.4 UG/DL (4.5-12.0); TOTAL IRON BINDING CAPACITY 278 UG/DL (250-450)
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
[2017-06-20] MEDS: BENZTROPINE 1 MG TAB PO SCH (09:20)
[2017-06-20] MEDS: FAMOTIDINE 20 MG TAB PO SCH ×2 (09:20→21:00)
[2017-06-20] MEDS: DIVALPROEX 500MG *ER* TAB PO SCH ×2 (09:20→21:00)
[2017-06-20] MEDS: MULTIVITAMINS/MINERALS THERAP 1 TAB PO SCH (09:20)
[2017-06-20] MEDS: LORazepam 1 MG TAB PO SCH ×3 (09:20→16:10)
[2017-06-20] MEDS: DOCUSATE SODIUM 100 MG CAP PO SCH ×2 (09:20→21:00)
[2017-06-20] MEDS: lamoTRIgine 25 MG TAB PO SCH ×2 (09:20→21:00)
[2017-06-20 10:12] LABS: FOLATE 19.1 NG/ML (>5.4); VITAMIN B12 LEVEL 439 PG/ML (247-911)
--- NOTE | 2017-06-20 10:53 | REP ---
RIGHT TIBIA/FIBULA, FOUR VIEWS: HISTORY: Fracture. COMPARISON: 05/24/2017. A plaster cast is present obscuring detail. The previously seen fracture of the distal fibula is not seen in the present radiographs. There is no new fracture or dislocation. The joint spaces are normal in appearance. IMPRESSION: The previously described fracture of the distal fibula is not seen in the present radiographs. Signed by Roberto Horne MD 06/20/2017 10:57 A
[2017-06-20 13:05] LABS: REASON FOR REVIEW COMPREHENSIVE REVIEW
[2017-06-20] MEDS: OLANZapine ORAL DISINTEGRATING TAB 5MG PO SCH ×2 (13:15→22:00)
[2017-06-20] MEDS: diphenhydrAMINE 50 MG CAP PO PRN (16:07)
[2017-06-20] MEDS: HALOPERIDOL 10 MG TAB PO PRN (16:07)
[2017-06-20] MEDS: ACETAMINOPHEN TAB 650MG DOSE (2X325MG) PO PRN (16:51)
[2017-06-20 20:45] VITALS: BP 125/65
[2017-06-20] MEDS: traZODone 50 MG TAB PO SCH (21:00)
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
[2017-06-20] MEDS: LORazepam 0.5 MG TAB PO SCH (22:00)
[2017-06-21] MEDS: LORazepam 0.5 MG TAB PO SCH ×4 (05:45→21:44)
[2017-06-21] MEDS: OLANZapine ORAL DISINTEGRATING TAB 5MG PO SCH ×3 (05:46→21:44)
[2017-06-21 06:42] VITALS: BP 105/58
[2017-06-21] MEDS: BENZTROPINE 1 MG TAB PO SCH (09:00)
[2017-06-21] MEDS: FAMOTIDINE 20 MG TAB PO SCH ×2 (09:00→21:44)
[2017-06-21] MEDS: DOCUSATE SODIUM 100 MG CAP PO SCH ×2 (09:00→21:44)
[2017-06-21] MEDS: DIVALPROEX 500MG *ER* TAB PO SCH ×2 (09:00→21:44)
[2017-06-21] MEDS: lamoTRIgine 25 MG TAB PO SCH ×2 (09:00→21:44)
[2017-06-21] MEDS: MULTIVITAMINS/MINERALS THERAP 1 TAB PO SCH (09:00)
[2017-06-21] MEDS ORDERED: HALOPERIDOL DECANOATE 100 MG/ML VIAL (J1631) IM ONE (11:15)
[2017-06-21] MEDS: ACETAMINOPHEN TAB 650MG DOSE (2X325MG) PO PRN (11:49)
[2017-06-21] MEDS: diphenhydrAMINE 50 MG CAP PO PRN (13:08)
--- NOTE | 2017-06-21 13:43 | MHIPNPDOC ---
[facility] Progress Note Progress Note DATE OF SERVICE: 06/21/17 HISTORY: Staff reports having a hard time with him during this admission. He doesn't want to bathe, he gets upset with water restriction policies although he has never been physically or verbally aggressive to people, only irritable. He has stated today he doesn't want to be in the hospital anymore, he doesn't want to be a [facility], he cannot get hold of his mother, he thinks his father is not worth it. He says he is not willing to stay his entire life inside of the hospital, he doesn't want people watching what he does. Patient is very irritable compared to previous admission and checking on his medications it was observed he then received a Haldol Decanoate a week ago because [facility] has a ordered every 3 weeks. It was ordered today and he will be receiving it every 2 weeks. As for now he wanted be able to be started on Clozaril because he has neutropenia, his white blood cell count is 2.1. VITAL SIGNS: See below. NEW TEST RESULTS: Folate and vitamin B12 levels are within normal range but ironically levels are low (60) CURRENT MEDICATIONS: See below. MENTAL STATUS EXAMINATION: MENTAL STATUS EXAMINATION: Patient is a 36-year old male, who is alert, very irritable and uncooperative, dressed in hospital clothes Speech: Tangential Language skills are fair Thought processes including: Irrational. Thought content: About not willing to be in the hospital, paranoid. Abstract reasoning, and computation: patient has difficulty with computation due to TBI. Description of associations: He is tangential today Description of abnormal or psychotic thoughts: Paranoid delusions Judgment: Poor Insight: Poor Orientation: Oriented to place, person and partially to date and time. Recent and remote memory: Poor Attention span and concentration: Poor. Language: Normal. Fund of knowledge: Limited due to TBI. Mood: Irritable/angry Affect: Congruent to affect, irritable and angry DIAGNOSES: 1. Paranoid schizophrenia 2. 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 TBI by history ASSESSMENT: patient can't be started on clozaril, he has neutropenia, probably because he has been taking mood stabilizers and anticonvulsants for a long period of time and these medications can cause a drop in WBC. he has iron deficiency anemia, his peripheral smear shows anemia and neutropenia. Will keep him on Haldol Decanoate 100 mgs. IM Q14 days from now on. He is currently receiving Zyprexa 30 mgs. daily and hopefully this will help him control his irritability. will f/u. MANAGEMENT PLAN: As above TIME SPENT: 30 minutes. Vital Signs Vital Signs Date Time Temp Pulse Resp B/P (MAP) Pulse Ox O2 Delivery O2 Flow Rate FiO2 06/21/17 06:42 97.3 62 18 105/58 (74) Room Air 06/20/17 20:45 98 Current Medications Current Medications Acetaminophen (Tylenol Tab) 650 mg Q6HP PRN PO HEADACHE or DISCOMFORT Last administered on 06/21/17 11:49; Start 06/18/17 at 23:45; Stop 07/18/17 at 23:44 Al Hydrox/Mg Hydrox/Simethicone (Mylanta) 30 ml Q4HP PRN PO HEARTBURN/ INDIGESTION; Start 06/18/17 at 23:45; Stop 07/18/17 at 23:44 Albuterol Sulfate (Proventil, Ventolin Hfa) 2 puff Q4HP PRN INH SHORTNESS OF BREATH; Start 06/19/17 at 09:45; Stop 07/19/17 at 09:44 Benztropine Mesylate (Cogentin) 1 mg DAILY PO Last administered on 06/20/17 09 :20; Start 06/19/17 at 09:00; Stop 07/19/17 at 08:59 Diphenhydramine HCl (Benadryl) 50 mg Q8HP PRN PO ANXIETY/AGITATION Last administered on 06/21/17 13:08; Start 06/18/17 at 22:45; Stop 07/18/17 at 22:44 Divalproex Sodium (Depakote Er) 500 mg BID PO Last administered on 06/20/17 09 :20; Start 06/19/17 at 09:00; Stop 07/19/17 at 08:59 Docusate Sodium (Colace) 100 mg BID PO Last administered on 06/20/17 09:20; Start 06/19/17 at 09:00; Stop 07/19/17 at 08:59 Famotidine (Pepcid) 40 mg BID PO Last administered on 06/20/17 09:20; Start at 09:00; Stop 07/19/17 at 08:59 Haloperidol (Haldol) 5 mg STAT STAT IM Last administered on 06/18/17 22:02; Start 06/18/17 at 22:02; Stop 06/18/17 at 22:09; Status DC Haloperidol (Haldol) 10 mg Q8HP PRN PO ANXIETY/AGITATION Last administered on 16:07; Start 06/18/17 at 22:45; Stop 07/18/17 at 22:44 Haloperidol Decanoate (Haldol Decanoate) 100 mg Q14D IM ; Start 06/21/17 at 09: 00; Stop 07/21/17 at 08:59 Home Med (Med Rec Complete!) ASDIRECTED XX ; Start 06/18/17 at 23:15; Stop at 23:15; Status DC Hydroxyzine HCl (Atarax) 50 mg Q4HP PRN PO AGITATION; Start 06/18/17 at 23:45; Stop 07/18/17 at 23:44 Lamotrigine (LaMICtal) 50 mg BID PO Last administered on 06/20/17 09:20; Start 06/19/17 at 09:00; Stop 07/19/17 at 08:59 Lorazepam (Ativan) 0.5 mg Q8H PO Last administered on 06/21/17 05:45; Start at 22:00; Stop 06/27/17 at 21:59 Lorazepam (Ativan) 1 mg QID PO Last administered on 06/20/17 16:10; Start at 09:00; Stop 06/20/17 at 20:30; Status DC Magnesium Hydroxide (Milk Of Magnesia) 30 ml DAILYPRN PRN PO CONSTIPATION; Start 06/18/17 at 23:45; Stop 07/18/17 at 23:44 Multivitamins (Theragram-M) 1 tab DAILY PO Last administered on 06/20/17 09:20 ; Start 06/19/17 at 09:00; Stop 07/19/17 at 08:59 Olanzapine (ZyPREXA ZYDIS) 10 mg Q4HP PRN PO ANXIETY/AGITATION; Start 06/18 at 22:45; Stop 06/20/17 at 14:45; Status DC Olanzapine (ZyPREXA ZYDIS) 10 mg Q8H PO Last administered on 06/21/17 05: 46; Start 06/20/17 at 14:00; Stop 07/18/17 at 13:59 Trazodone HCl (Desyrel) 50 mg QHS PO ; Start 06/18/17 at 21:00; Stop 06/19/17 at 00:08; Status DC Trazodone HCl (Desyrel) 50 mg QHS PO Last administered on 06/19/17 21:52; Start 06/19/17 at 21:00; Stop 07/19/17 at 20:59 Allergies Coded Allergies: Codeine (Verified Allergy, Intermediate, 05/29/17) Penicillins (Verified Allergy, Intermediate, 01/16/17) DANIEL LEUNG MD Jun 21, 2017 13:43
[2017-06-21] MEDS: HALOPERIDOL DECANOATE 100 MG/ML VIAL (J1631) IM SCH ×2 (15:00→15:23)
[2017-06-21] MEDS: traZODone 50 MG TAB PO SCH (21:44)
[2017-06-22] MEDS: OLANZapine ORAL DISINTEGRATING TAB 5MG PO SCH ×3 (06:12→21:56)
[2017-06-22] MEDS: LORazepam 0.5 MG TAB PO SCH ×3 (06:12→21:56)
[2017-06-22] MEDS: MULTIVITAMINS/MINERALS THERAP 1 TAB PO SCH (08:03)
[2017-06-22] MEDS: lamoTRIgine 25 MG TAB PO SCH ×2 (08:03→21:56)
[2017-06-22] MEDS: FAMOTIDINE 20 MG TAB PO SCH ×2 (08:03→21:56)
[2017-06-22] MEDS: DIVALPROEX 500MG *ER* TAB PO SCH ×2 (08:03→21:56)
[2017-06-22] MEDS: DOCUSATE SODIUM 100 MG CAP PO SCH ×2 (08:03→21:56)
[2017-06-22] MEDS: BENZTROPINE 1 MG TAB PO SCH (08:03)
[2017-06-22] MEDS: diphenhydrAMINE 50 MG CAP PO PRN ×2 (08:05→18:38)
[2017-06-22] MEDS ORDERED: **PENDING PPD ENTRY XX SCH (09:00)
[2017-06-22] MEDS: HALOPERIDOL 10 MG TAB PO PRN (09:01)
[2017-06-22] MEDS: ACETAMINOPHEN TAB 650MG DOSE (2X325MG) PO PRN ×2 (09:40→15:54)
[2017-06-22] MEDS ORDERED: TUBERCULIN PPD 5 UNITS/0.1 ML ID ONE (15:00)
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
[2017-06-22] MEDS: traZODone 50 MG TAB PO SCH (21:56)
[2017-06-23] MEDS: LORazepam 0.5 MG TAB PO SCH ×3 (06:17→21:33)
[2017-06-23] MEDS: OLANZapine ORAL DISINTEGRATING TAB 5MG PO SCH ×3 (06:17→21:33)
[2017-06-23 06:33] VITALS: BP 134/60
[2017-06-23] MEDS ORDERED: diphenhydrAMINE 50 MG CAP PO ONE (07:15)
[2017-06-23 08:21] LABS: MEAN CORPUSCULAR HEMOGLOBIN 32.5 pg (27.0-33.0); MEAN CORPUSCULAR HGB CONC 33.7 g/dl (32.0-36.5); MEAN CORPUSCULAR VOLUME 96.3 fl (80.0-96.0); RED CELL DISTRIBUTION WIDTH 12.7 % (11.5-14.5); WHITE BLOOD COUNT 2.7 K/mm3 (4.0-10.0)
[2017-06-23 08:25] LABS: ALBUMIN 3.7 GM/DL (3.2-5.2); ALBUMIN/GLOBULIN RATIO 1.23 (1.00-1.93); ALKALINE PHOSPHATASE 90 U/L (45-117); ALT/SGPT 45 U/L (12-78); ANION GAP 9 MEQ/L (8-16); AST/SGOT 15 U/L (15-37); BILIRUBIN,TOTAL 0.2 MG/DL (0.2-1.0); BLOOD UREA NITROGEN 15 MG/DL (7-18); CALCIUM LEVEL 8.4 MG/DL (8.5-10.1); CARBON DIOXIDE LEVEL 27 MEQ/L (21-32); CHLORIDE LEVEL 106 MEQ/L (98-107); CREATININE FOR GFR 0.73 MG/DL (0.70-1.30); GLOMERULAR FILTRATION RATE > 60.0 (>60); GLUCOSE, FASTING 110 MG/DL (70-105); POTASSIUM SERUM 4.4 MEQ/L (3.5-5.1); SODIUM LEVEL 142 MEQ/L (136-145); TOTAL PROTEIN 6.7 GM/DL (6.4-8.2)
[2017-06-23] MEDS: BENZTROPINE 1 MG TAB PO SCH (08:29)
[2017-06-23] MEDS: MULTIVITAMINS/MINERALS THERAP 1 TAB PO SCH (08:29)
[2017-06-23] MEDS: lamoTRIgine 25 MG TAB PO SCH (08:29)
[2017-06-23] MEDS: DIVALPROEX 500MG *ER* TAB PO SCH ×2 (08:29→21:33)
[2017-06-23] MEDS: FAMOTIDINE 20 MG TAB PO SCH ×2 (08:29→21:33)
[2017-06-23] MEDS: DOCUSATE SODIUM 100 MG CAP PO SCH ×2 (08:29→21:33)
[2017-06-23] MEDS: ACETAMINOPHEN TAB 650MG DOSE (2X325MG) PO PRN ×2 (08:31→15:19)
[2017-06-23] MEDS ORDERED: TUBERCULIN PPD 5 UNITS/0.1 ML ID ONE (10:00)
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
[2017-06-23] MEDS: predniSONE 20 MG TAB PO SCH (14:24)
[2017-06-23] MEDS: IBUPROFEN 600 MG TAB PO PRN (14:27)
--- NOTE | 2017-06-23 16:30 | MHIPNPDOC ---
[facility] Progress Note Progress Note DATE OF SERVICE: 06/23/17 HISTORY: Patient has been more compliant with medications and this morning he asked if he could be transferred to his aunt's house. This specification writer discussed with him that we will need to speak to his aunt if he signs a release of information and if he stands and his family are willing to take him and take full responsibility of his medical condition, that it would be okay. Spoke with him about his TBI probably causing him memory problems and that it would be complicated for him to live at the house with his relatives that worked outside of the house and have other things to do because probably he will forget certain things, like turning the stove off or closing the doors. This specification writer tried to explain to him why it is important for him to leave at a [facility] and what is important for him to comply with medications. Patient was observed to have a rash this morning that covered his chest, his legs and the upper part of his arms. Christine MCNULTY was aware of the situation and evaluated the patient with Dr. Guy and Dr. Garibay and agreed to discontinue Lamictal and started him on another anticonvulsant. Patient will have to be on prednisone 40 mg by mouth daily for 3 days. Patient met with mental hygiene services truck sales representative, lawyer Merced Gross to discuss his transferred to [facility]. Patient said he didn't want to be transferred to [place] but he also refused to have an administrative hearing. For that reason transfer will be done. VITAL SIGNS: See below. NEW TEST RESULTS: N/A CURRENT MEDICATIONS: See below. MENTAL STATUS EXAMINATION: MENTAL STATUS EXAMINATION: Patient is a 36-year old male, who is cooperative today, he has a rash on his chest arms and legs, dressed in hospital clothes, more pleasant, with fair eye contact, dressed in hospital clothes Speech: A little bit loud, less irrational, more coherent than yesterday Language skills are fair Thought processes including: Irrational Thought content: Paranoid about doctors, about hospitals in about medications Abstract reasoning, and computation: patient has difficulty with computation due to TBI. Description of associations: Not loose Description of abnormal or psychotic thoughts: Paranoid delusions Judgment: Poor Insight: Poor Orientation: Oriented to place and person, partially to date and time Recent and remote memory: Poor Attention span and concentration: Poor. Language: Normal. Fund of knowledge: Limited due to TBI. Mood: Anxious Affect: Congruent to mood DIAGNOSES: 1. Paranoid schizophrenia 2. 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 TBI by history ASSESSMENT: Patient has been more compliant with medications and he says he would prefer to go back to [facility] or to his aunt's home, but when he thinks about having to comply with rules at [facility] he says he he will go to his family house ( his aunt's) who live in [place] because he is fed up of hospitals, doctors and medicines. Patient is going to be transferred to [facility]. He has the opportunity to talk to patient's advocate, Merced Gross and he refused going to [place] but also refused going into an administrative hearing. Patient was transferred to [place] will proceed. Patient was assessed by hospitalist and Lamictal was discontinued. He was started on a new antiepileptic medication and he will be taking prednisone 40 mg by mouth daily for 3 days. MANAGEMENT PLAN: As above MANAGEMENT PLAN: TIME SPENT: 30 minutes. Vital Signs Vital Signs Date Time Temp Pulse Resp B/P (MAP) Pulse Ox O2 Delivery O2 Flow Rate FiO2 06/23/17 06:33 99.1 78 20 134/60 (84) 06/21/17 06:42 Room Air 06/20/17 20:45 98 Laboratory Data 24H Labs Laboratory Tests 2 06/23/17 07:38: Anion Gap 9, Glomerular Filtration Rate > 60.0, Blood Urea Nitrogen 15, Creatinine 0.73, Sodium Level 142, Potassium Level 4.4, Chloride Level 106, Carbon Dioxide Level 27, Calcium Level 8.4L, Aspartate Amino Transf (AST/SGOT) 15, Alanine Aminotransferase (ALT/SGPT) 45, Alkaline Phosphatase 90, Total Bilirubin 0.2, Total Protein 6.7, Albumin 3.7, Albumin/Globulin Ratio 1.23 CBC/BMP Laboratory Tests 06/23/17 07:38 Red Blood Count 4.31, Mean Corpuscular Volume 96.3 H, Mean Corpuscular Hemoglobin 32.5, Mean Corpuscular Hemoglobin Concent 33.7, Red Cell Distribution Width 12.7, Calcium Level 8.4 L, Aspartate Amino Transf (AST/SGOT) 15, Alanine Aminotransferase (ALT/SGPT) 45, Alkaline Phosphatase 90, Total Bilirubin 0.2, Total Protein 6.7, Albumin 3.7 Current Medications Current Medications Acetaminophen (Tylenol Tab) 650 mg Q6HP PRN PO HEADACHE or DISCOMFORT Last administered on 06/23/17 15:19; Start 06/18/17 at 23:45; Stop 07/18/17 at 23:44 Al Hydrox/Mg Hydrox/Simethicone (Mylanta) 30 ml Q4HP PRN PO HEARTBURN/ INDIGESTION; Start 06/18/17 at 23:45; Stop 07/18/17 at 23:44 Albuterol Sulfate (Proventil, Ventolin Hfa) 2 puff Q4HP PRN INH SHORTNESS OF BREATH; Start 06/19/17 at 09:45; Stop 07/19/17 at 09:44 Benztropine Mesylate (Cogentin) 1 mg DAILY PO Last administered on 06/23/17 08: 29; Start 06/19/17 at 09:00; Stop 07/19/17 at 08:59 Diphenhydramine HCl (Benadryl) 50 mg Q8HP PRN PO ANXIETY/AGITATION Last administered on 06/22/17 18:38; Start 06/18/17 at 22:45; Stop 07/18/17 at 22:44 Divalproex Sodium (Depakote Er) 500 mg BID PO Last administered on 06/23/17 08: 29; Start 06/19/17 at 09:00; Stop 07/19/17 at 08:59 Docusate Sodium (Colace) 100 mg BID PO Last administered on 06/23/17 08:29; Start 06/19/17 at 09:00; Stop 07/19/17 at 08:59 Famotidine (Pepcid) 40 mg BID PO Last administered on 06/23/17 08:29; Start at 09:00; Stop 07/19/17 at 08:59 Haloperidol (Haldol) 5 mg STAT STAT IM Last administered on 06/18/17 22:02; Start 06/18/17 at 22:02; Stop 06/18/17 at 22:09; Status DC Haloperidol (Haldol) 10 mg Q8HP PRN PO ANXIETY/AGITATION Last administered on 09:01; Start 06/18/17 at 22:45; Stop 07/18/17 at 22:44 Haloperidol Decanoate (Haldol Decanoate) 100 mg Q14D IM Last administered on 15:23; Start 06/21/17 at 09:00; Stop 07/21/17 at 08:59 Home Med (Med Rec Complete!) ASDIRECTED XX ; Start 06/18/17 at 23:15; Stop at 23:15; Status DC Hydroxyzine HCl (Atarax) 50 mg Q4HP PRN PO AGITATION Last administered on 11:23; Start 06/18/17 at 23:45; Stop 06/23/17 at 10:03; Status DC Hydroxyzine HCl (Atarax) 100 mg Q4HP PRN PO AGITATION; Start 06/23/17 at 10:00; Stop 07/23/17 at 09:59 Ibuprofen (Advil) 600 mg Q8HP PRN PO PAIN Last administered on 06/23/17 14:27; Start 06/23/17 at 14:00; Stop 07/23/17 at 13:59 Lacosamide (Vimpat) 50 mg BID PO ; Start 06/23/17 at 21:00; Stop 06/30/17 at 20:59 Lamotrigine (LaMICtal) 50 mg BID PO Last administered on 06/23/17 08:29; Start 06/19/17 at 09:00; Stop 06/23/17 at 14:03; Status DC Lamotrigine (LaMICtal) 50 mg QAM PO ; Start 06/24/17 at 09:00; Stop 06/24/17 at 09 :00; Status DC Lorazepam (Ativan) 0.5 mg Q8H PO Last administered on 06/23/17 14:24; Start at 22:00; Stop 06/27/17 at 21:59 Lorazepam (Ativan) 1 mg QID PO Last administered on 06/20/17 16:10; Start at 09:00; Stop 06/20/17 at 20:30; Status DC Magnesium Hydroxide (Milk Of Magnesia) 30 ml DAILYPRN PRN PO CONSTIPATION; Start 06/18/17 at 23:45; Stop 07/18/17 at 23:44 Multivitamins (Theragram-M) 1 tab DAILY PO Last administered on 06/23/17 08:29 ; Start 06/19/17 at 09:00; Stop 07/19/17 at 08:59 Non-Formulary Medication ( See Comment Field Below ) SEE COMMENTS SECTION 1T @10 XX ; Start 06/24/17 at 10:00; Stop 06/24/17 at 10:00; Status DC Non-Formulary Medication ( See Comment Field Below ) SEE LABEL COMMENTS DAILY XX ; Start 06/22/17 at 09:00; Stop 06/23/17 at 09:09; Status DC Olanzapine (ZyPREXA ZYDIS) 10 mg Q4HP PRN PO ANXIETY/AGITATION; Start 06/18 at 22:45; Stop 06/20/17 at 14:45; Status DC Olanzapine (ZyPREXA ZYDIS) 10 mg Q8H PO Last administered on 06/23/17 14:24 ; Start 06/20/17 at 14:00; Stop 07/18/17 at 13:59 Prednisone (Deltasone) 40 mg DAILY PO Last administered on 06/23/17 14:24; Start 06/23/17 at 09:00; Stop 06/25/17 at 12:00 Trazodone HCl (Desyrel) 50 mg QHS PO ; Start 06/18/17 at 21:00; Stop 06/19/17 at 00:08; Status DC Trazodone HCl (Desyrel) 50 mg QHS PO Last administered on 06/22/17 21:56; Start 06/19/17 at 21:00; Stop 07/19/17 at 20:59 Allergies Coded Allergies: Codeine (Verified Allergy, Intermediate, 05/29/17) Penicillins (Verified Allergy, Intermediate, 01/16/17) DANIEL LEUNG MD Jun 23, 2017 16:30
[2017-06-23 18:00] VITALS: BP 114/66
[2017-06-23] MEDS: hydrOXYzine 50 MG TAB PO PRN (18:06)
[2017-06-23] MEDS: traZODone 50 MG TAB PO SCH (21:33)
[2017-06-23] MEDS: LACOSAMIDE 50 MG TAB (VIMPAT) PO SCH (21:33)
[2017-06-24] MEDS: LORazepam 0.5 MG TAB PO SCH ×3 (06:26→20:05)
[2017-06-24] MEDS: OLANZapine ORAL DISINTEGRATING TAB 5MG PO SCH ×3 (06:26→20:05)
[2017-06-24 07:22] VITALS: BP 135/95
[2017-06-24 08:01] LABS: MEAN CORPUSCULAR HEMOGLOBIN 31.8 pg (27.0-33.0); MEAN CORPUSCULAR HGB CONC 33.9 g/dl (32.0-36.5); MEAN CORPUSCULAR VOLUME 93.8 fl (80.0-96.0); RED CELL DISTRIBUTION WIDTH 12.8 % (11.5-14.5); WHITE BLOOD COUNT 3.6 K/mm3 (4.0-10.0)
[2017-06-24] MEDS: IBUPROFEN 600 MG TAB PO PRN (08:02)
[2017-06-24] MEDS: FAMOTIDINE 20 MG TAB PO SCH ×2 (08:02→20:05)
[2017-06-24] MEDS: DOCUSATE SODIUM 100 MG CAP PO SCH ×2 (08:02→20:05)
[2017-06-24] MEDS: DIVALPROEX 500MG *ER* TAB PO SCH ×2 (08:03→20:05)
[2017-06-24] MEDS: LACOSAMIDE 50 MG TAB (VIMPAT) PO SCH ×2 (08:03→20:05)
[2017-06-24] MEDS: BENZTROPINE 1 MG TAB PO SCH (08:03)
[2017-06-24] MEDS: predniSONE 20 MG TAB PO SCH (08:03)
[2017-06-24] MEDS: MULTIVITAMINS/MINERALS THERAP 1 TAB PO SCH (08:03)
[2017-06-24 08:34] LABS: ALBUMIN 3.7 GM/DL (3.2-5.2); ALBUMIN/GLOBULIN RATIO 1.23 (1.00-1.93); ALKALINE PHOSPHATASE 86 U/L (45-117); ALT/SGPT 45 U/L (12-78); ANION GAP 10 MEQ/L (8-16); AST/SGOT 16 U/L (15-37); BILIRUBIN,TOTAL 0.3 MG/DL (0.2-1.0); BLOOD UREA NITROGEN 12 MG/DL (7-18); CALCIUM LEVEL 8.4 MG/DL (8.5-10.1); CARBON DIOXIDE LEVEL 27 MEQ/L (21-32); CHLORIDE LEVEL 108 MEQ/L (98-107); CREATININE FOR GFR 0.59 MG/DL (0.70-1.30); GLOMERULAR FILTRATION RATE > 60.0 (>60); GLUCOSE, FASTING 91 MG/DL (70-105); POTASSIUM SERUM 4.2 MEQ/L (3.5-5.1); SODIUM LEVEL 145 MEQ/L (136-145); TOTAL PROTEIN 6.7 GM/DL (6.4-8.2)
[2017-06-24] MEDS: hydrOXYzine 50 MG TAB PO PRN (08:41)
[2017-06-24] MEDS ORDERED: lamoTRIgine 25 MG TAB PO SCH (09:00)
[2017-06-24] MEDS ORDERED: PPD DOCUMENTATION ENTRY MISC XX SCH (10:00)
[2017-06-24] MEDS: diphenhydrAMINE 50 MG CAP PO PRN (14:49)
[2017-06-24 18:00] VITALS: BP 108/65
--- NOTE | 2017-06-24 18:37 | MHIPNPDOC ---
[facility] Progress Note Progress Note DATE OF SERVICE: 06/24/17 Interval History: Patient was seen and evaluated currently on constant observation for safety. He reported that he is worried about the trash that he has got on his chest and upper extremities, which has been itching and is not able to control those itching reports that the medications are helping him for the itching but at times not enough. He remains irritable, angry and hostile at times. Continued to talk about some of the suicidal ideations, which she thinks has been decreasing over the time Patient has been more compliant with medications. Patient has poor hygiene and grooming. Reports having sleep problems but he is eating fine VITAL SIGNS: See below. NEW TEST RESULTS: N/A CURRENT MEDICATIONS: See below. MENTAL STATUS EXAMINATION: Patient is a 36-year old male, who is cooperative today, he has a rash on his chest arms and legs, dressed in hospital clothes, more pleasant, with fair eye contact, dressed in hospital clothes Speech: A little bit loud, less irrational, more coherent than yesterday Language skills are fair Thought processes including: Irrational Thought content: Paranoid about doctors, about hospitals in about medications Abstract reasoning, and computation: patient has difficulty with computation due to TBI. Description of associations: Not loose Description of abnormal or psychotic thoughts: Paranoid delusions Judgment: Poor Insight: Poor Orientation: Oriented to place and person, partially to date and time Recent and remote memory: Poor Attention span and concentration: Poor. Language: Normal. Fund of knowledge: Limited due to TBI. Mood: Anxious Affect: Congruent to mood DIAGNOSES: 1. Paranoid schizophrenia 2. 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 TBI by history MANAGEMENT PLAN: Continue current treatment. Possible transfer to [facility]. Also, continue constant observation Vital Signs Vital Signs Date Time Temp Pulse Resp B/P (MAP) Pulse Ox O2 Delivery O2 Flow Rate FiO2 06/24/17 18:00 99.3 87 16 108/65 (79) 06/24/17 07:22 Room Air 06/20/17 20:45 98 Laboratory Data 24H Labs Laboratory Tests 2 06/24/17 07:29: Anion Gap 10, Glomerular Filtration Rate > 60.0, Blood Urea Nitrogen 12, Creatinine 0.59L, Sodium Level 145, Potassium Level 4.2, Chloride Level 108H, Carbon Dioxide Level 27, Calcium Level 8.4L, Aspartate Amino Transf (AST/SGOT) 16, Alanine Aminotransferase (ALT/SGPT) 45, Alkaline Phosphatase 86, Total Bilirubin 0.3, Total Protein 6.7, Albumin 3.7, Albumin/Globulin Ratio 1.23 CBC/BMP Laboratory Tests 06/24/17 07:29 Red Blood Count 4.20 L, Mean Corpuscular Volume 93.8, Mean Corpuscular Hemoglobin 31.8, Mean Corpuscular Hemoglobin Concent 33.9, Red Cell Distribution Width 12.8, Calcium Level 8.4 L, Aspartate Amino Transf (AST/SGOT) 16, Alanine Aminotransferase (ALT/SGPT) 45, Alkaline Phosphatase 86, Total Bilirubin 0.3, Total Protein 6.7, Albumin 3.7 Current Medications Current Medications Acetaminophen (Tylenol Tab) 650 mg Q6HP PRN PO HEADACHE or DISCOMFORT Last administered on 06/23/17 15:19; Start 06/18/17 at 23:45; Stop 07/18/17 at 23:44 Al Hydrox/Mg Hydrox/Simethicone (Mylanta) 30 ml Q4HP PRN PO HEARTBURN/ INDIGESTION; Start 06/18/17 at 23:45; Stop 07/18/17 at 23:44 Albuterol Sulfate (Proventil, Ventolin Hfa) 2 puff Q4HP PRN INH SHORTNESS OF BREATH; Start 06/19/17 at 09:45; Stop 07/19/17 at 09:44 Benztropine Mesylate (Cogentin) 1 mg DAILY PO Last administered on 06/24/17 08: 03; Start 06/19/17 at 09:00; Stop 07/19/17 at 08:59 Diphenhydramine HCl (Benadryl) 50 mg Q6HP PRN PO ITCHING Last administered on 14:49; Start 06/23/17 at 18:15; Stop 07/23/17 at 18:14 Diphenhydramine HCl (Benadryl) 50 mg Q8HP PRN PO ANXIETY/AGITATION Last administered on 06/22/17 18:38; Start 06/18/17 at 22:45; Stop 06/23/17 at 18:09 ; Status DC Divalproex Sodium (Depakote Er) 500 mg BID PO Last administered on 06/24/17 08: 03; Start 06/19/17 at 09:00; Stop 07/19/17 at 08:59 Docusate Sodium (Colace) 100 mg BID PO Last administered on 06/24/17 08:02; Start 06/19/17 at 09:00; Stop 07/19/17 at 08:59 Famotidine (Pepcid) 40 mg BID PO Last administered on 06/24/17 08:02; Start at 09:00; Stop 07/19/17 at 08:59 Haloperidol (Haldol) 5 mg STAT STAT IM Last administered on 06/18/17 22:02; Start 06/18/17 at 22:02; Stop 06/18/17 at 22:09; Status DC Haloperidol (Haldol) 10 mg Q8HP PRN PO ANXIETY/AGITATION Last administered on 09:01; Start 06/18/17 at 22:45; Stop 07/18/17 at 22:44 Haloperidol Decanoate (Haldol Decanoate) 100 mg Q14D IM Last administered on 15:23; Start 06/21/17 at 09:00; Stop 07/21/17 at 08:59 Home Med (Med Rec Complete!) ASDIRECTED XX ; Start 06/18/17 at 23:15; Stop at 23:15; Status DC Hydroxyzine HCl (Atarax) 50 mg Q4HP PRN PO AGITATION Last administered on 11:23; Start 06/18/17 at 23:45; Stop 06/23/17 at 10:03; Status DC Hydroxyzine HCl (Atarax) 100 mg Q4HP PRN PO AGITATION Last administered on 08:41; Start 06/23/17 at 10:00; Stop 07/23/17 at 09:59 Ibuprofen (Advil) 600 mg Q8HP PRN PO PAIN Last administered on 06/24/17 08:02; Start 06/23/17 at 14:00; Stop 07/23/17 at 13:59 Lacosamide (Vimpat) 50 mg BID PO Last administered on 06/24/17 08:03; Start 06/23/17 at 21:00; Stop 06/30/17 at 20:59 Lamotrigine (LaMICtal) 50 mg BID PO Last administered on 06/23/17 08:29; Start 06/19/17 at 09:00; Stop 06/23/17 at 14:03; Status DC Lamotrigine (LaMICtal) 50 mg QAM PO ; Start 06/24/17 at 09:00; Stop 06/24/17 at 09 :00; Status DC Lorazepam (Ativan) 0.5 mg Q8H PO Last administered on 06/24/17 13:12; Start at 22:00; Stop 06/27/17 at 21:59 Lorazepam (Ativan) 1 mg QID PO Last administered on 06/20/17 16:10; Start at 09:00; Stop 06/20/17 at 20:30; Status DC Magnesium Hydroxide (Milk Of Magnesia) 30 ml DAILYPRN PRN PO CONSTIPATION; Start 06/18/17 at 23:45; Stop 07/18/17 at 23:44 Multivitamins (Theragram-M) 1 tab DAILY PO Last administered on 06/24/17 08:03 ; Start 06/19/17 at 09:00; Stop 07/19/17 at 08:59 Non-Formulary Medication ( See Comment Field Below ) SEE COMMENTS SECTION 1T @10 XX ; Start 06/24/17 at 10:00; Stop 06/24/17 at 10:00; Status DC Non-Formulary Medication ( See Comment Field Below ) SEE LABEL COMMENTS DAILY XX ; Start 06/22/17 at 09:00; Stop 06/23/17 at 09:09; Status DC Olanzapine (ZyPREXA ZYDIS) 10 mg Q4HP PRN PO ANXIETY/AGITATION; Start 06/18 at 22:45; Stop 06/20/17 at 14:45; Status DC Olanzapine (ZyPREXA ZYDIS) 10 mg Q8H PO Last administered on 06/24/17 13:12 ; Start 06/20/17 at 14:00; Stop 07/18/17 at 13:59 Prednisone (Deltasone) 40 mg DAILY PO Last administered on 06/24/17 08:03; Start 06/23/17 at 09:00; Stop 06/25/17 at 12:00 Trazodone HCl (Desyrel) 50 mg QHS PO ; Start 06/18/17 at 21:00; Stop 06/19/17 at 00:08; Status DC Trazodone HCl (Desyrel) 50 mg QHS PO Last administered on 06/23/17t 21:33; Start 06/19/17 at 21:00; Stop 07/19/17 at 20:59 Allergies Coded Allergies: Codeine (Verified Allergy, Intermediate, 05/29/17) Penicillins (Verified Allergy, Intermediate, 01/16/17) FLY SCOTT MD Jun 24, 2017 18:37
[2017-06-24] MEDS: traZODone 50 MG TAB PO SCH (20:05)
[2017-06-25] MEDS: LORazepam 0.5 MG TAB PO SCH ×3 (05:42→20:04)
[2017-06-25] MEDS: OLANZapine ORAL DISINTEGRATING TAB 5MG PO SCH ×3 (05:42→20:04)
[2017-06-25 06:36] VITALS: BP 88/65
[2017-06-25 07:20] LABS: MEAN CORPUSCULAR HGB CONC 33.6 g/dl (32.0-36.5); WHITE BLOOD COUNT 4.4 K/mm3 (4.0-10.0)
[2017-06-25 07:44] LABS: ALBUMIN 3.4 GM/DL (3.2-5.2); ALBUMIN/GLOBULIN RATIO 1.21 (1.00-1.93); ALKALINE PHOSPHATASE 78 U/L (45-117); ALT/SGPT 57 U/L (12-78); ANION GAP 9 MEQ/L (8-16); AST/SGOT 26 U/L (15-37); BILIRUBIN,TOTAL 0.1 MG/DL (0.2-1.0); BLOOD UREA NITROGEN 12 MG/DL (7-18); CALCIUM LEVEL 8.1 MG/DL (8.5-10.1); CARBON DIOXIDE LEVEL 29 MEQ/L (21-32); CHLORIDE LEVEL 108 MEQ/L (98-107); CREATININE FOR GFR 0.68 MG/DL (0.70-1.30); GLOMERULAR FILTRATION RATE > 60.0 (>60); GLUCOSE, FASTING 91 MG/DL (70-105); POTASSIUM SERUM 4.1 MEQ/L (3.5-5.1); SODIUM LEVEL 146 MEQ/L (136-145); TOTAL PROTEIN 6.2 GM/DL (6.4-8.2)
[2017-06-25] MEDS: DOCUSATE SODIUM 100 MG CAP PO SCH ×2 (07:59→20:04)
[2017-06-25] MEDS: BENZTROPINE 1 MG TAB PO SCH (07:59)
[2017-06-25] MEDS: MULTIVITAMINS/MINERALS THERAP 1 TAB PO SCH (07:59)
[2017-06-25] MEDS: DIVALPROEX 500MG *ER* TAB PO SCH ×2 (07:59→20:05)
[2017-06-25] MEDS: predniSONE 20 MG TAB PO SCH (07:59)
[2017-06-25] MEDS: FAMOTIDINE 20 MG TAB PO SCH ×2 (08:00→20:05)
[2017-06-25] MEDS: LACOSAMIDE 50 MG TAB (VIMPAT) PO SCH ×2 (08:00→20:04)
[2017-06-25] MEDS ORDERED: PPD DOCUMENTATION ENTRY MISC XX ONE (10:00)
[2017-06-25] MEDS: IBUPROFEN 600 MG TAB PO PRN (11:45)
--- NOTE | 2017-06-25 17:38 | MHIPNPDOC ---
[facility] Progress Note Progress Note DATE OF SERVICE: 06/25/17 Interval History: Patient was seen and evaluated, currently on constant observation for safety. He continued to be irritable but trying best to control the behavior while angry, found trying to amulate, He reported that he is worried about the rash that he has got on his chest and upper extremities, which has been itching and is not able to control those itching reports that the medications are helping him for the itching but at times not enough. HIs hygiene & grooming remains poor & continued to demand taking off the cast. Patient has been more compliant with medications, denies side effects. Reports having sleep problems but he is eating fine VITAL SIGNS: See below. NEW TEST RESULTS: N/A CURRENT MEDICATIONS: See below. MENTAL STATUS EXAMINATION: Patient is a 36-year old male, who is cooperative today, he has a rash on his chest arms and legs, dressed in hospital clothes, more pleasant, with fair eye contact, dressed in hospital clothes Speech: A little bit loud, less irrational, more coherent than yesterday Language skills are fair Thought processes including: Irrational Thought content: Paranoid about doctors, about hospitals in about medications Abstract reasoning, and computation: patient has difficulty with computation due to TBI. Description of associations: Not loose Description of abnormal or psychotic thoughts: Paranoid delusions Judgment: Poor Insight: Poor Orientation: Oriented to place and person, partially to date and time Recent and remote memory: Poor Attention span and concentration: Poor. Language: Normal. Fund of knowledge: Limited due to TBI. Mood: Anxious Affect: Congruent to mood DIAGNOSES: 1. Paranoid schizophrenia 2. 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 TBI by history MANAGEMENT PLAN: Continue current treatment. Possible transfer to [facility]. Also, continue constant observation Vital Signs Vital Signs Date Time Temp Pulse Resp B/P (MAP) Pulse Ox O2 Delivery O2 Flow Rate FiO2 06/25/17 08:20 Room Air 06/25/17 06:36 99.5 107 20 88/65 (73) 06/20/17 20:45 98 Laboratory Data 24H Labs Laboratory Tests 2 06/25/17 07:10: Anion Gap 9, Glomerular Filtration Rate > 60.0, Blood Urea Nitrogen 12, Creatinine 0.68L, Sodium Level 146H, Potassium Level 4.1, Chloride Level 108H, Carbon Dioxide Level 29, Calcium Level 8.1L, Aspartate Amino Transf (AST/SGOT) 26, Alanine Aminotransferase (ALT/SGPT) 57, Alkaline Phosphatase 78, Total Bilirubin 0.1#L, Total Protein 6.2L, Albumin 3.4, Albumin/Globulin Ratio 1.21 CBC/BMP Laboratory Tests 06/25/17 07:10 Red Blood Count 4.12 L, Mean Corpuscular Volume 95.0, Mean Corpuscular Hemoglobin 32.0, Mean Corpuscular Hemoglobin Concent 33.6, Red Cell Distribution Width 13.0, Calcium Level 8.1 L, Aspartate Amino Transf (AST/SGOT) 26, Alanine Aminotransferase (ALT/SGPT) 57, Alkaline Phosphatase 78, Total Bilirubin 0.1 #L, Total Protein 6.2 L, Albumin 3.4 Current Medications Current Medications Acetaminophen (Tylenol Tab) 650 mg Q6HP PRN PO HEADACHE or DISCOMFORT Last administered on 06/23/17 15:19; Start 06/18/17 at 23:45; Stop 07/18/17 at 23:44 Al Hydrox/Mg Hydrox/Simethicone (Mylanta) 30 ml Q4HP PRN PO HEARTBURN/ INDIGESTION; Start 06/18/17 at 23:45; Stop 07/18/17 at 23:44 Albuterol Sulfate (Proventil, Ventolin Hfa) 2 puff Q4HP PRN INH SHORTNESS OF BREATH; Start 06/19/17 at 09:45; Stop 07/19/17 at 09:44 Benztropine Mesylate (Cogentin) 1 mg DAILY PO Last administered on 06/25/17 07: 59; Start 06/19/17 at 09:00; Stop 07/19/17 at 08:59 Diphenhydramine HCl (Benadryl) 50 mg Q6HP PRN PO ITCHING Last administered on 14:49; Start 06/23/17 at 18:15; Stop 07/23/17 at 18:14 Diphenhydramine HCl (Benadryl) 50 mg Q8HP PRN PO ANXIETY/AGITATION Last administered on 06/22/17 18:38; Start 06/18/17 at 22:45; Stop 06/23/17 at 18:09 ; Status DC Divalproex Sodium (Depakote Er) 500 mg BID PO Last administered on 06/25/17 07: 59; Start 06/19/17 at 09:00; Stop 07/19/17 at 08:59 Docusate Sodium (Colace) 100 mg BID PO Last administered on 06/25/17 07:59; Start 06/19/17 at 09:00; Stop 07/19/17 at 08:59 Famotidine (Pepcid) 40 mg BID PO Last administered on 06/25/17 08:00; Start at 09:00; Stop 07/19/17 at 08:59 Haloperidol (Haldol) 5 mg STAT STAT IM Last administered on 06/18/17 22:02; Start 06/18/17 at 22:02; Stop 06/18/17 at 22:09; Status DC Haloperidol (Haldol) 10 mg Q8HP PRN PO ANXIETY/AGITATION Last administered on 09:01; Start 06/18/17 at 22:45; Stop 07/18/17 at 22:44 Haloperidol Decanoate (Haldol Decanoate) 100 mg Q14D IM Last administered on 15:23; Start 06/21/17 at 09:00; Stop 07/21/17 at 08:59 Home Med (Med Rec Complete!) ASDIRECTED XX ; Start 06/18/17 at 23:15; Stop at 23:15; Status DC Hydroxyzine HCl (Atarax) 50 mg Q4HP PRN PO AGITATION Last administered on 11:23; Start 06/18/17 at 23:45; Stop 06/23/17 at 10:03; Status DC Hydroxyzine HCl (Atarax) 100 mg Q4HP PRN PO AGITATION Last administered on 08:41; Start 06/23/17 at 10:00; Stop 07/23/17 at 09:59 Ibuprofen (Advil) 600 mg Q8HP PRN PO PAIN Last administered on 06/25/17 11:45; Start 06/23/17 at 14:00; Stop 07/23/17 at 13:59 Lacosamide (Vimpat) 50 mg BID PO Last administered on 06/25/17 08:00; Start 06/23/17 at 21:00; Stop 06/30/17 at 20:59 Lamotrigine (LaMICtal) 50 mg BID PO Last administered on 06/23/17 08:29; Start 06/19/17 at 09:00; Stop 06/23/17 at 14:03; Status DC Lamotrigine (LaMICtal) 50 mg QAM PO ; Start 06/24/17 at 09:00; Stop 06/24/17 at 09 :00; Status DC Lorazepam (Ativan) 0.5 mg Q8H PO Last administered on 06/25/17 13:04; Start at 22:00; Stop 06/27/17 at 21:59 Lorazepam (Ativan) 1 mg QID PO Last administered on 06/20/17 16:10; Start at 09:00; Stop 06/20/17 at 20:30; Status DC Magnesium Hydroxide (Milk Of Magnesia) 30 ml DAILYPRN PRN PO CONSTIPATION; Start 06/18/17 at 23:45; Stop 07/18/17 at 23:44 Multivitamins (Theragram-M) 1 tab DAILY PO Last administered on 06/25/17 07:59 ; Start 06/19/17 at 09:00; Stop 07/19/17 at 08:59 Non-Formulary Medication ( See Comment Field Below ) SEE COMMENTS SECTION 1T @10 XX ; Start 06/24/17 at 10:00; Stop 06/24/17 at 10:00; Status DC Non-Formulary Medication ( See Comment Field Below ) SEE LABEL COMMENTS DAILY XX ; Start 06/22/17 at 09:00; Stop 06/23/17 at 09:09; Status DC Olanzapine (ZyPREXA ZYDIS) 10 mg Q4HP PRN PO ANXIETY/AGITATION; Start 06/18 at 22:45; Stop 06/20/17 at 14:45; Status DC Olanzapine (ZyPREXA ZYDIS) 10 mg Q8H PO Last administered on 06/25/17 13:04 ; Start 06/20/17 at 14:00; Stop 07/18/17 at 13:59 Prednisone (Deltasone) 40 mg DAILY PO Last administered on 06/25/17 07:59; Start 06/23/17 at 09:00; Stop 06/25/17 at 12:00; Status DC Trazodone HCl (Desyrel) 50 mg QHS PO ; Start 06/18/17 at 21:00; Stop 06/19/17 at 00:08; Status DC Trazodone HCl (Desyrel) 50 mg QHS PO Last administered on 06/24/17 20:05; Start 06/19/17 at 21:00; Stop 07/19/17 at 20:59 Allergies Coded Allergies: Codeine (Verified Allergy, Intermediate, 05/29/17) Penicillins (Verified Allergy, Intermediate, 01/16/17) FLY SCOTT MD Jun 25, 2017 17:38
[2017-06-25 18:00] VITALS: BP 133/67
[2017-06-25] MEDS: traZODone 50 MG TAB PO SCH (20:05)
[2017-06-26] MEDS: LORazepam 0.5 MG TAB PO SCH ×3 (06:08→21:07)
[2017-06-26] MEDS: OLANZapine ORAL DISINTEGRATING TAB 5MG PO SCH ×3 (06:09→21:07)
[2017-06-26 07:12] VITALS: BP 140/68
[2017-06-26] MEDS: DOCUSATE SODIUM 100 MG CAP PO SCH ×2 (08:16→21:07)
[2017-06-26] MEDS: FAMOTIDINE 20 MG TAB PO SCH ×2 (08:16→21:07)
[2017-06-26] MEDS: DIVALPROEX 500MG *ER* TAB PO SCH ×2 (08:16→21:08)
[2017-06-26] MEDS: MULTIVITAMINS/MINERALS THERAP 1 TAB PO SCH (08:16)
[2017-06-26] MEDS: BENZTROPINE 1 MG TAB PO SCH (08:16)
[2017-06-26] MEDS: LACOSAMIDE 50 MG TAB (VIMPAT) PO SCH ×2 (08:16→21:07)
[2017-06-26] MEDS: ACETAMINOPHEN TAB 650MG DOSE (2X325MG) PO PRN (12:59)
[2017-06-26] MEDS: traZODone 50 MG TAB PO SCH (21:07)
[2017-06-27] MEDS: LORazepam 0.5 MG TAB PO SCH (06:47)
[2017-06-27] MEDS: OLANZapine ORAL DISINTEGRATING TAB 5MG PO SCH ×3 (06:47→22:25)
[2017-06-27 07:03] LABS: MEAN CORPUSCULAR HEMOGLOBIN 31.8 pg (27.0-33.0); MEAN CORPUSCULAR HGB CONC 33.8 g/dl (32.0-36.5); MEAN CORPUSCULAR VOLUME 94.3 fl (80.0-96.0); RED CELL DISTRIBUTION WIDTH 12.8 % (11.5-14.5); WHITE BLOOD COUNT 3.9 K/mm3 (4.0-10.0)
[2017-06-27 07:28] LABS: ALBUMIN/GLOBULIN RATIO 1.15 (1.00-1.93); ALKALINE PHOSPHATASE 76 U/L (45-117); ALT/SGPT 97 U/L (12-78); ANION GAP 8 MEQ/L (8-16); AST/SGOT 40 U/L (15-37); BILIRUBIN,TOTAL 0.2 MG/DL (0.2-1.0); BLOOD UREA NITROGEN 12 MG/DL (7-18); CARBON DIOXIDE LEVEL 28 MEQ/L (21-32); CHLORIDE LEVEL 109 MEQ/L (98-107); CREATININE FOR GFR 0.49 MG/DL (0.70-1.30); GLOMERULAR FILTRATION RATE > 60.0 (>60); GLUCOSE, FASTING 78 MG/DL (70-105); POTASSIUM SERUM 4.2 MEQ/L (3.5-5.1); SODIUM LEVEL 145 MEQ/L (136-145); TOTAL PROTEIN 5.6 GM/DL (6.4-8.2)
[2017-06-27] MEDS: LACOSAMIDE 50 MG TAB (VIMPAT) PO SCH ×2 (08:40→20:09)
[2017-06-27] MEDS: MULTIVITAMINS/MINERALS THERAP 1 TAB PO SCH (08:40)
[2017-06-27] MEDS: BENZTROPINE 1 MG TAB PO SCH (08:40)
[2017-06-27] MEDS: DOCUSATE SODIUM 100 MG CAP PO SCH ×2 (08:40→20:09)
[2017-06-27] MEDS: DIVALPROEX 500MG *ER* TAB PO SCH ×2 (08:40→20:09)
[2017-06-27] MEDS: FAMOTIDINE 20 MG TAB PO SCH ×2 (08:40→20:09)
[2017-06-27 09:26] VITALS: BP 119/63
[2017-06-27] MEDS: ACETAMINOPHEN TAB 650MG DOSE (2X325MG) PO PRN (15:45)
[2017-06-27] MEDS: clonazePAM 0.5 MG TAB PO SCH ×2 (15:45→20:09)
[2017-06-27] MEDS: hydrOXYzine 50 MG TAB PO PRN (16:44)
[2017-06-27] MEDS: IBUPROFEN 600 MG TAB PO PRN (16:45)
[2017-06-27 18:00] VITALS: BP 126/66
--- NOTE | 2017-06-27 19:54 | MHIPNPDOC ---
[facility] Progress Note Progress Note DATE OF SERVICE: 06/27/17 Interval History: Patient was evaluated and he continues to ask if there's a way that he can go somewhere else other than [facility]. Patient was told he had the opportunity of talking to Patient's advocate, and he refused going to [facility] but he also refused going to a Hearing in Court. For that reason, he lost his chance and he is going to [facility]. Later on, he asked how he could become stronger and requested energizing drinks. TW explained to him why it is not possible, educated about the side effects of these drinks. Patient's rash has dissapeared , he continues on 1:1 observation VITAL SIGNS: See below. NEW TEST RESULTS: N/A CURRENT MEDICATIONS: See below. MENTAL STATUS EXAMINATION: Patient is a 36-year old male, anxious, cooperative, with poor eye contact, poor insight Speech: A little bit loud, less irrational, more coherent than yesterday Language skills are fair Thought processes including: Irrational Thought content: Paranoid about healthcare providers, hospitals and medications Abstract reasoning, and computation: patient has difficulty with computation due to TBI. Description of associations: Not loose Description of abnormal or psychotic thoughts: Paranoid delusions Judgment: Poor Insight: Poor Orientation: Oriented to place and person, partially to date and time Recent and remote memory: Poor Attention span and concentration: Poor. Language: Normal. Fund of knowledge: Limited due to TBI. Mood: Anxious Affect: Congruent to mood DIAGNOSES: 1. Paranoid schizophrenia 2. 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 TBI by history MANAGEMENT PLAN: Patient will continue on current medications, on 1:1 sitter. Waiting for placement at [facility]. Will f/u TIME SPENT: 30 minutes. Vital Signs Vital Signs Date Time Temp Pulse Resp B/P (MAP) Pulse Ox O2 Delivery O2 Flow Rate FiO2 06/27/17 09:26 100 18 119/63 (81) 97 Room Air 06/26/17 07:12 98.7 Laboratory Data 24H Labs Laboratory Tests 2 06/27/17 06:52: Anion Gap 8, Glomerular Filtration Rate > 60.0, Blood Urea Nitrogen 12, Creatinine 0.49L, Sodium Level 145, Potassium Level 4.2, Chloride Level 109H, Carbon Dioxide Level 28, Calcium Level 8.0L, Aspartate Amino Transf (AST/SGOT) 40H, Alanine Aminotransferase (ALT/SGPT) 97H, Alkaline Phosphatase 76, Total Bilirubin 0.2#, Total Protein 5.6L, Albumin 3.0L, Albumin/Globulin Ratio 1.15 CBC/BMP Laboratory Tests 06/27/17 06:52 Red Blood Count 3.90 L, Mean Corpuscular Volume 94.3, Mean Corpuscular Hemoglobin 31.8, Mean Corpuscular Hemoglobin Concent 33.8, Red Cell Distribution Width 12.8, Calcium Level 8.0 L, Aspartate Amino Transf (AST/SGOT) 40 H, Alanine Aminotransferase (ALT/SGPT) 97 H, Alkaline Phosphatase 76, Total Bilirubin 0.2 #, Total Protein 5.6 L, Albumin 3.0 L Current Medications Current Medications Acetaminophen (Tylenol Tab) 650 mg Q6HP PRN PO HEADACHE or DISCOMFORT Last administered on 06/27/17 15:45; Start 06/18/17 at 23:45; Stop 07/18/17 at 23:44 Al Hydrox/Mg Hydrox/Simethicone (Mylanta) 30 ml Q4HP PRN PO HEARTBURN/ INDIGESTION; Start 06/18/17 at 23:45; Stop 07/18/17 at 23:44 Albuterol Sulfate (Proventil, Ventolin Hfa) 2 puff Q4HP PRN INH SHORTNESS OF BREATH; Start 06/19/17 at 09:45; Stop 07/19/17 at 09:44 Benztropine Mesylate (Cogentin) 1 mg DAILY PO Last administered on 06/27/17 08: 40; Start 06/19/17 at 09:00; Stop 07/19/17 at 08:59 Clonazepam (KlonoPIN) 0.5 mg TID PO Last administered on 06/27/17 15:45; Start 06/27/17 at 16:00; Stop 07/04/17 at 15:59 Diphenhydramine HCl (Benadryl) 50 mg Q6HP PRN PO ITCHING Last administered on 14:49; Start 06/23/17 at 18:15; Stop 07/23/17 at 18:14 Diphenhydramine HCl (Benadryl) 50 mg Q8HP PRN PO ANXIETY/AGITATION Last administered on 06/22/17 18:38; Start 06/18/17 at 22:45; Stop 06/23/17 at 18:09 ; Status DC Divalproex Sodium (Depakote Er) 500 mg BID PO Last administered on 06/27/17 08: 40; Start 06/19/17 at 09:00; Stop 07/19/17 at 08:59 Docusate Sodium (Colace) 100 mg BID PO Last administered on 06/27/17 08:40; Start 06/19/17 at 09:00; Stop 07/19/17 at 08:59 Famotidine (Pepcid) 40 mg BID PO Last administered on 06/27/17 08:40; Start at 09:00; Stop 07/19/17 at 08:59 Haloperidol (Haldol) 5 mg STAT STAT IM Last administered on 06/18/17 22:02; Start 06/18/17 at 22:02; Stop 06/18/17 at 22:09; Status DC Haloperidol (Haldol) 10 mg Q8HP PRN PO ANXIETY/AGITATION Last administered on 09:01; Start 06/18/17 at 22:45; Stop 07/18/17 at 22:44 Haloperidol Decanoate (Haldol Decanoate) 100 mg Q14D IM Last administered on 15:23; Start 06/21/17 at 09:00; Stop 07/21/17 at 08:59 Home Med (Med Rec Complete!) ASDIRECTED XX ; Start 06/18/17 at 23:15; Stop at 23:15; Status DC Hydroxyzine HCl (Atarax) 50 mg Q4HP PRN PO AGITATION Last administered on 11:23; Start 06/18/17 at 23:45; Stop 06/23/17 at 10:03; Status DC Hydroxyzine HCl (Atarax) 100 mg Q4HP PRN PO AGITATION Last administered on 16:44; Start 06/23/17 at 10:00; Stop 07/23/17 at 09:59 Ibuprofen (Advil) 600 mg Q8HP PRN PO PAIN Last administered on 06/27/17 16:45; Start 06/23/17 at 14:00; Stop 07/23/17 at 13:59 Lacosamide (Vimpat) 50 mg BID PO Last administered on 06/27/17 08:40; Start 06/23/17 at 21:00; Stop 06/30/17 at 20:59 Lamotrigine (LaMICtal) 50 mg BID PO Last administered on 06/23/17 08:29; Start 06/19/17 at 09:00; Stop 06/23/17 at 14:03; Status DC Lamotrigine (LaMICtal) 50 mg QAM PO ; Start 06/24/17 at 09:00; Stop 06/24/17 at 09 :00; Status DC Lorazepam (Ativan) 0.5 mg Q8H PO Last administered on 06/27/17 06:47; Start at 22:00; Stop 06/27/17 at 13:11; Status DC Lorazepam (Ativan) 1 mg QID PO Last administered on 06/20/17 16:10; Start at 09:00; Stop 06/20/17 at 20:30; Status DC Magnesium Hydroxide (Milk Of Magnesia) 30 ml DAILYPRN PRN PO CONSTIPATION; Start 06/18/17 at 23:45; Stop 07/18/17 at 23:44 Multivitamins (Theragram-M) 1 tab DAILY PO Last administered on 06/27/17 08:40 ; Start 06/19/17 at 09:00; Stop 07/19/17 at 08:59 Non-Formulary Medication ( See Comment Field Below ) SEE COMMENTS SECTION 1T @10 XX ; Start 06/24/17 at 10:00; Stop 06/24/17 at 10:00; Status DC Non-Formulary Medication ( See Comment Field Below ) SEE LABEL COMMENTS DAILY XX ; Start 06/22/17 at 09:00; Stop 06/23/17 at 09:09; Status DC Olanzapine (ZyPREXA ZYDIS) 10 mg Q4HP PRN PO ANXIETY/AGITATION; Start 06/18 at 22:45; Stop 06/20/17 at 14:45; Status DC Olanzapine (ZyPREXA ZYDIS) 10 mg Q8H PO Last administered on 06/27/17 14:17 ; Start 06/20/17 at 14:00; Stop 07/18/17 at 13:59 Prednisone (Deltasone) 40 mg DAILY PO Last administered on 06/25/17 07:59; Start 06/23/17 at 09:00; Stop 06/25/17 at 12:00; Status DC Trazodone HCl (Desyrel) 50 mg QHS PO ; Start 06/18/17 at 21:00; Stop 06/19/17 at 00:08; Status DC Trazodone HCl (Desyrel) 50 mg QHS PO Last administered on 06/26/17 21:07; Start 06/19/17 at 21:00; Stop 07/19/17 at 20:59 Allergies Coded Allergies: Codeine (Verified Allergy, Intermediate, 05/29/17) Penicillins (Verified Allergy, Intermediate, 01/16/17) DANIEL LEUNG MD Jun 27, 2017 19:54
[2017-06-27] MEDS: traZODone 50 MG TAB PO SCH (20:09)
[2017-06-28] MEDS: OLANZapine ORAL DISINTEGRATING TAB 5MG PO SCH ×3 (06:28→21:51)
[2017-06-28 07:00] VITALS: BP 98/57
[2017-06-28] MEDS: LACOSAMIDE 50 MG TAB (VIMPAT) PO SCH ×2 (08:02→20:10)
[2017-06-28] MEDS: FAMOTIDINE 20 MG TAB PO SCH ×2 (08:02→20:10)
[2017-06-28] MEDS: MULTIVITAMINS/MINERALS THERAP 1 TAB PO SCH (08:02)
[2017-06-28] MEDS: DIVALPROEX 500MG *ER* TAB PO SCH ×2 (08:02→20:10)
[2017-06-28] MEDS: DOCUSATE SODIUM 100 MG CAP PO SCH ×2 (08:02→20:10)
[2017-06-28] MEDS: BENZTROPINE 1 MG TAB PO SCH (08:03)
[2017-06-28] MEDS: clonazePAM 0.5 MG TAB PO SCH ×3 (08:03→20:10)
[2017-06-28 08:51] LABS: MEAN CORPUSCULAR HEMOGLOBIN 32.3 pg (27.0-33.0); MEAN CORPUSCULAR HGB CONC 33.9 g/dl (32.0-36.5); MEAN CORPUSCULAR VOLUME 95.3 fl (80.0-96.0); RED CELL DISTRIBUTION WIDTH 12.6 % (11.5-14.5); WHITE BLOOD COUNT 3.3 K/mm3 (4.0-10.0)
[2017-06-28 08:55] LABS: ALBUMIN 3.2 GM/DL (3.2-5.2); ALBUMIN/GLOBULIN RATIO 1.19 (1.00-1.93); ALKALINE PHOSPHATASE 79 U/L (45-117); ALT/SGPT 91 U/L (12-78); ANION GAP 11 MEQ/L (8-16); AST/SGOT 29 U/L (15-37); BILIRUBIN,TOTAL 0.2 MG/DL (0.2-1.0); BLOOD UREA NITROGEN 12 MG/DL (7-18); CALCIUM LEVEL 8.4 MG/DL (8.5-10.1); CARBON DIOXIDE LEVEL 27 MEQ/L (21-32); CHLORIDE LEVEL 109 MEQ/L (98-107); CREATININE FOR GFR 0.59 MG/DL (0.70-1.30); GLOMERULAR FILTRATION RATE > 60.0 (>60); GLUCOSE, FASTING 126 MG/DL (70-105); POTASSIUM SERUM 4.2 MEQ/L (3.5-5.1); SODIUM LEVEL 147 MEQ/L (136-145); TOTAL PROTEIN 5.9 GM/DL (6.4-8.2)
[2017-06-28] MEDS: hydrOXYzine 50 MG TAB PO PRN ×2 (10:30→20:11)
[2017-06-28] MEDS: IBUPROFEN 600 MG TAB PO PRN (16:04)
--- NOTE | 2017-06-28 16:26 | MHIPNPDOC ---
[facility] Progress Note Progress Note DATE OF SERVICE: 06/28/17 DATE OF SERVICE: 06/27/17 Interval History: Patient asked this sql report writer and other staff members if he could be restarted on Aricept because he had dementia and he couldn't go to [place] if he was not going to remember who his parents where he and his parents names. This sql report writer discussed with him that there is no previous history of him using Aricept. He could not go into the lounge because he drinks fluids over there and he is on a fluid restriction protocol but this afternoon this sql report writer and other staff members decided to allow him to go into the lounge, unfortunately this didn't work because he cannot process the relationship that exists between fluid or water consumption and sodium levels. According to staff he is sleeping well at night so he won't need a sitter during the night. The only reason that he has had a sitter is to control his water intake VITAL SIGNS: See below. NEW TEST RESULTS: N/A CURRENT MEDICATIONS: See below. MENTAL STATUS EXAMINATION: Patient is a 36-year old male, irritable, cooperative, with poor eye contact, poor insight Speech: A little bit loud, more irritable than yesterday, mostly because he doesn't understand the reasons behind the water restriction protocol Language skills are fair Thought processes including: Irrational Thought content: Fixed on Aricept and water consumption Abstract reasoning, and computation: patient has difficulty with computation due to TBI. Description of associations: Not loose Description of abnormal or psychotic thoughts: Paranoid delusions Judgment: Poor Insight: Poor Orientation: Oriented to place and person, partially to date and time Recent and remote memory: Poor Attention span and concentration: Poor. Language: Normal. Fund of knowledge: Limited due to TBI. Mood: Irritable Affect: Congruent to mood DIAGNOSES: 1. Paranoid schizophrenia 2. 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 TBI by history MANAGEMENT PLAN: Patient will continue on fluid restrictions, he won be able to go to the lounge because over there he drinks fluids but he can come off the one -to-one sitter at night because according to staff he goes to sleep and he sleeps well, he doesn't get up during the night. The reason that he was on a one -to-one sitter at night was to control his water intake but he is sleeping, he is not getting up, he doesn't need it. Still awaiting for transfer [place] [facility] We will follow-up TIME SPENT: 30 minutes. TIME SPENT: minutes. Vital Signs Vital Signs Date Time Temp Pulse Resp B/P (MAP) Pulse Ox O2 Delivery O2 Flow Rate FiO2 06/28/17 07:00 99.2 96 20 98/57 (71) 06/27/17 09:26 97 Room Air Laboratory Data 24H Labs Laboratory Tests 2 06/28/17 07:49: Anion Gap 11, Glomerular Filtration Rate > 60.0, Blood Urea Nitrogen 12, Creatinine 0.59L, Sodium Level 147H, Potassium Level 4.2, Chloride Level 109H, Carbon Dioxide Level 27, Calcium Level 8.4L, Aspartate Amino Transf (AST/SGOT) 29, Alanine Aminotransferase (ALT/SGPT) 91H, Alkaline Phosphatase 79, Total Bilirubin 0.2, Total Protein 5.9L, Albumin 3.2, Albumin/Globulin Ratio 1.19 CBC/BMP Laboratory Tests 06/28/17 07:49 Red Blood Count 3.94 L, Mean Corpuscular Volume 95.3, Mean Corpuscular Hemoglobin 32.3, Mean Corpuscular Hemoglobin Concent 33.9, Red Cell Distribution Width 12.6, Calcium Level 8.4 L, Aspartate Amino Transf (AST/SGOT) 29, Alanine Aminotransferase (ALT/SGPT) 91 H, Alkaline Phosphatase 79, Total Bilirubin 0.2, Total Protein 5.9 L, Albumin 3.2 Current Medications Current Medications Acetaminophen (Tylenol Tab) 650 mg Q6HP PRN PO HEADACHE or DISCOMFORT Last administered on 06/27/17 15:45; Start 06/18/17 at 23:45; Stop 07/18/17 at 23:44 Al Hydrox/Mg Hydrox/Simethicone (Mylanta) 30 ml Q4HP PRN PO HEARTBURN/ INDIGESTION; Start 06/18/17 at 23:45; Stop 07/18/17 at 23:44 Albuterol Sulfate (Proventil, Ventolin Hfa) 2 puff Q4HP PRN INH SHORTNESS OF BREATH; Start 06/19/17 at 09:45; Stop 07/19/17 at 09:44 Benztropine Mesylate (Cogentin) 1 mg DAILY PO Last administered on 06/28/17 08: 03; Start 06/19/17 at 09:00; Stop 07/19/17 at 08:59 Clonazepam (KlonoPIN) 0.5 mg TID PO Last administered on 06/28/17 15:03; Start 06/27/17 at 16:00; Stop 07/04/17 at 15:59 Diphenhydramine HCl (Benadryl) 50 mg Q6HP PRN PO ITCHING Last administered on 14:49; Start 06/23/17 at 18:15; Stop 07/23/17 at 18:14 Diphenhydramine HCl (Benadryl) 50 mg Q8HP PRN PO ANXIETY/AGITATION Last administered on 06/22/17 18:38; Start 06/18/17 at 22:45; Stop 06/23/17 at 18:09 ; Status DC Divalproex Sodium (Depakote Er) 500 mg BID PO Last administered on 06/28/17 08: 02; Start 06/19/17 at 09:00; Stop 07/19/17 at 08:59 Docusate Sodium (Colace) 100 mg BID PO Last administered on 06/28/17 08:02; Start 06/19/17 at 09:00; Stop 07/19/17 at 08:59 Famotidine (Pepcid) 40 mg BID PO Last administered on 06/28/17 08:02; Start at 09:00; Stop 07/19/17 at 08:59 Haloperidol (Haldol) 5 mg STAT STAT IM Last administered on 06/18/17 22:02; Start 06/18/17 at 22:02; Stop 06/18/17 at 22:09; Status DC Haloperidol (Haldol) 10 mg Q8HP PRN PO ANXIETY/AGITATION Last administered on 09:01; Start 06/18/17 at 22:45; Stop 07/18/17 at 22:44 Haloperidol Decanoate (Haldol Decanoate) 100 mg Q14D IM Last administered on 15:23; Start 06/21/17 at 09:00; Stop 07/21/17 at 08:59 Home Med (Med Rec Complete!) ASDIRECTED XX ; Start 06/18/17 at 23:15; Stop at 23:15; Status DC Hydroxyzine HCl (Atarax) 50 mg Q4HP PRN PO AGITATION Last administered on 11:23; Start 06/18/17 at 23:45; Stop 06/23/17 at 10:03; Status DC Hydroxyzine HCl (Atarax) 100 mg Q4HP PRN PO AGITATION Last administered on 10:30; Start 06/23/17 at 10:00; Stop 07/23/17 at 09:59 Ibuprofen (Advil) 600 mg Q8HP PRN PO PAIN Last administered on 06/28/17 16:04; Start 06/23/17 at 14:00; Stop 07/23/17 at 13:59 Lacosamide (Vimpat) 50 mg BID PO Last administered on 06/28/17 08:02; Start 06/23/17 at 21:00; Stop 06/30/17 at 20:59 Lamotrigine (LaMICtal) 50 mg BID PO Last administered on 06/23/17 08:29; Start 06/19/17 at 09:00; Stop 06/23/17 at 14:03; Status DC Lamotrigine (LaMICtal) 50 mg QAM PO ; Start 06/24/17 at 09:00; Stop 06/24/17 at 09 :00; Status DC Lorazepam (Ativan) 0.5 mg Q8H PO Last administered on 06/27/17 06:47; Start at 22:00; Stop 06/27/17 at 13:11; Status DC Lorazepam (Ativan) 1 mg QID PO Last administered on 06/20/17 16:10; Start at 09:00; Stop 06/20/17 at 20:30; Status DC Magnesium Hydroxide (Milk Of Magnesia) 30 ml DAILYPRN PRN PO CONSTIPATION; Start 06/18/17 at 23:45; Stop 07/18/17 at 23:44 Multivitamins (Theragram-M) 1 tab DAILY PO Last administered on 06/28/17 08:02 ; Start 06/19/17 at 09:00; Stop 07/19/17 at 08:59 Non-Formulary Medication ( See Comment Field Below ) SEE COMMENTS SECTION 1T @10 XX ; Start 06/24/17 at 10:00; Stop 06/24/17 at 10:00; Status DC Non-Formulary Medication ( See Comment Field Below ) SEE LABEL COMMENTS DAILY XX ; Start 06/22/17 at 09:00; Stop 06/23/17 at 09:09; Status DC Olanzapine (ZyPREXA ZYDIS) 10 mg Q4HP PRN PO ANXIETY/AGITATION; Start 06/18 at 22:45; Stop 06/20/17 at 14:45; Status DC Olanzapine (ZyPREXA ZYDIS) 10 mg Q8H PO Last administered on 06/28/17 13:04 ; Start 06/20/17 at 14:00; Stop 07/18/17 at 13:59 Prednisone (Deltasone) 40 mg DAILY PO Last administered on 06/25/17 07:59; Start 06/23/17 at 09:00; Stop 06/25/17 at 12:00; Status DC Trazodone HCl (Desyrel) 50 mg QHS PO ; Start 06/18/17 at 21:00; Stop 06/19/17 at 00:08; Status DC Trazodone HCl (Desyrel) 50 mg QHS PO Last administered on 06/27/17 20:09; Start 06/19/17 at 21:00; Stop 07/19/17 at 20:59 Allergies Coded Allergies: Codeine (Verified Allergy, Intermediate, 05/29/17) Penicillins (Verified Allergy, Intermediate, 01/16/17) DANIEL LEUNG MD Jun 28, 2017 16:26
[2017-06-28 18:00] VITALS: BP 108/64
[2017-06-28] MEDS: ACETAMINOPHEN TAB 650MG DOSE (2X325MG) PO PRN (18:25)
[2017-06-28] MEDS: MAALOX 30 ML SUSP *UDC PO PRN (18:41)
[2017-06-28] MEDS: traZODone 50 MG TAB PO SCH (20:10)
[2017-06-28] MEDS: diphenhydrAMINE 50 MG CAP PO PRN (20:11)
[2017-06-29] MEDS: OLANZapine ORAL DISINTEGRATING TAB 5MG PO SCH ×3 (06:24→22:03)
[2017-06-29 06:55] VITALS: BP 116/69
[2017-06-29] MEDS: LACOSAMIDE 50 MG TAB (VIMPAT) PO SCH ×2 (08:08→20:15)
[2017-06-29] MEDS: DIVALPROEX 500MG *ER* TAB PO SCH ×2 (08:08→20:17)
[2017-06-29] MEDS: BENZTROPINE 1 MG TAB PO SCH (08:08)
[2017-06-29] MEDS: MULTIVITAMINS/MINERALS THERAP 1 TAB PO SCH (08:08)
[2017-06-29] MEDS: DOCUSATE SODIUM 100 MG CAP PO SCH ×2 (08:08→20:16)
[2017-06-29] MEDS: FAMOTIDINE 20 MG TAB PO SCH ×2 (08:09→20:15)
[2017-06-29] MEDS: clonazePAM 0.5 MG TAB PO SCH ×3 (08:09→20:15)
[2017-06-29] MEDS ORDERED: risperiDONE 1 MG TAB PO SCH (09:00)
[2017-06-29] MEDS: ACETAMINOPHEN TAB 650MG DOSE (2X325MG) PO PRN (15:48)
[2017-06-29] MEDS: traZODone 50 MG TAB PO SCH (20:16)
[2017-06-29] MEDS: IBUPROFEN 600 MG TAB PO PRN (20:17)
[2017-06-29] MEDS: risperiDONE 1 MG TAB PO SCH (20:18)
--- NOTE | 2017-06-29 20:23 | MHIPNPDOC ---
[facility] Progress Note Progress Note DATE OF SERVICE: 06/29/17 Interval History: Patient asked this keno writer if he could be started on Geodon because years ago he was on it. He says he would like to have the injection. This keno writer explained to him that he can't have so many antipsychotics, that he already received the Haldol Decanoate. He replied that he doesn't like Haldol Decanoate, that he doesn't want to go back to [facility], he doesn't want to go to [facility] and he doesn't want to be at the [facility]. He said "I don't want any of this, I might as well blow my brains" VITAL SIGNS: See below. NEW TEST RESULTS: N/A CURRENT MEDICATIONS: See below. MENTAL STATUS EXAMINATION: Patient is a 36-year old male, irritable, angry, uncooperative, with good eye contact Speech: Loud, slow, irrational Language skills are fair Thought processes including: Not coherent, disorganized Thought content: Preoccupied about taking more antipsychotics because he doesn' t want to be paranoid and doesn't want to be in a psychiatric hospital Abstract reasoning, and computation: patient has difficulty with computation due to TBI. Description of associations: Not loose Description of abnormal or psychotic thoughts: Paranoid delusions, irrational, not coherent. Has positive suicidal ideation, denies homicidal ideation. Judgment: Poor Insight: Poor Orientation: Oriented to place and person, partially to date and time Recent and remote memory: Poor Attention span and concentration: Poor. Language: Normal. Fund of knowledge: Limited due to TBI. Mood: Irritable, sad depressed: "I might as well blow my brains" Affect: Congruent to mood DIAGNOSES: 1. Paranoid schizophrenia 2. 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 TBI by history MANAGEMENT PLAN:Patient was started on Risperdal 0.5 mgs PO BID because he is irritable and this medication can help him with anger and impulse control. I will try to taper down Zyprexa and keep him on a higher dose of Risperdal or Invega if he doesn't tolerate Risperdal. TIME SPENT: 30 minutes. TIME SPENT: minutes. Vital Signs Vital Signs Date Time Temp Pulse Resp B/P (MAP) Pulse Ox O2 Delivery O2 Flow Rate FiO2 06/29/17 09:12 Room Air 06/29/17 06:55 97.8 67 16 116/69 (85) 06/27/17 09:26 97 Current Medications Current Medications Acetaminophen (Tylenol Tab) 650 mg Q6HP PRN PO HEADACHE or DISCOMFORT Last administered on 06/29/17 15:48; Start 06/18/17 at 23:45; Stop 07/18/17 at 23:44 Al Hydrox/Mg Hydrox/Simethicone (Mylanta) 30 ml Q4HP PRN PO HEARTBURN/ INDIGESTION Last administered on 06/28/17 18:41; Start 06/18/17 at 23:45; Stop 07/18/17 at 23:44 Albuterol Sulfate (Proventil, Ventolin Hfa) 2 puff Q4HP PRN INH SHORTNESS OF BREATH; Start 06/19/17 at 09:45; Stop 07/19/17 at 09:44 Benztropine Mesylate (Cogentin) 1 mg DAILY PO Last administered on 06/29/17 08: 08; Start 06/19/17 at 09:00; Stop 07/19/17 at 08:59 Clonazepam (KlonoPIN) 0.5 mg TID PO Last administered on 06/29/17 15:47; Start 06/27/17 at 16:00; Stop 07/04/17 at 15:59 Diphenhydramine HCl (Benadryl) 50 mg Q6HP PRN PO ITCHING Last administered on 20:11; Start 06/23/17 at 18:15; Stop 07/23/17 at 18:14 Diphenhydramine HCl (Benadryl) 50 mg Q8HP PRN PO ANXIETY/AGITATION Last administered on 06/22/17 18:38; Start 06/18/17 at 22:45; Stop 06/23/17 at 18:09 ; Status DC Divalproex Sodium (Depakote Er) 500 mg BID PO Last administered on 06/29/17 08: 08; Start 06/19/17 at 09:00; Stop 07/19/17 at 08:59 Docusate Sodium (Colace) 100 mg BID PO Last administered on 06/29/17 08:08; Start 06/19/17 at 09:00; Stop 07/19/17 at 08:59 Famotidine (Pepcid) 40 mg BID PO Last administered on 06/29/17 08:09; Start at 09:00; Stop 07/19/17 at 08:59 Haloperidol (Haldol) 5 mg STAT STAT IM Last administered on 06/18/17 22:02; Start 06/18/17 at 22:02; Stop 06/18/17 at 22:09; Status DC Haloperidol (Haldol) 10 mg Q8HP PRN PO ANXIETY/AGITATION Last administered on 09:01; Start 06/18/17 at 22:45; Stop 07/18/17 at 22:44 Haloperidol Decanoate (Haldol Decanoate) 100 mg Q14D IM Last administered on 15:23; Start 06/21/17 at 09:00; Stop 07/21/17 at 08:59 Home Med (Med Rec Complete!) ASDIRECTED XX ; Start 06/18/17 at 23:15; Stop at 23:15; Status DC Hydroxyzine HCl (Atarax) 50 mg Q4HP PRN PO AGITATION Last administered on 11:23; Start 06/18/17 at 23:45; Stop 06/23/17 at 10:03; Status DC Hydroxyzine HCl (Atarax) 100 mg Q4HP PRN PO AGITATION Last administered on 20:11; Start 06/23/17 at 10:00; Stop 07/23/17 at 09:59 Ibuprofen (Advil) 600 mg Q8HP PRN PO PAIN Last administered on 06/28/17 16:04; Start 06/23/17 at 14:00; Stop 07/23/17 at 13:59 Lacosamide (Vimpat) 50 mg BID PO Last administered on 06/29/17 08:08; Start 06/23/17 at 21:00; Stop 06/30/17 at 20:59 Lamotrigine (LaMICtal) 50 mg BID PO Last administered on 06/23/17 08:29; Start 06/19/17 at 09:00; Stop 06/23/17 at 14:03; Status DC Lamotrigine (LaMICtal) 50 mg QAM PO ; Start 06/24/17 at 09:00; Stop 06/24/17 at 09 :00; Status DC Lorazepam (Ativan) 0.5 mg Q8H PO Last administered on 06/27/17 06:47; Start at 22:00; Stop 06/27/17 at 13:11; Status DC Lorazepam (Ativan) 1 mg QID PO Last administered on 06/20/17 16:10; Start at 09:00; Stop 06/20/17 at 20:30; Status DC Magnesium Hydroxide (Milk Of Magnesia) 30 ml DAILYPRN PRN PO CONSTIPATION; Start 06/18/17 at 23:45; Stop 07/18/17 at 23:44 Multivitamins (Theragram-M) 1 tab DAILY PO Last administered on 06/29/17 08:08 ; Start 06/19/17 at 09:00; Stop 07/19/17 at 08:59 Non-Formulary Medication ( See Comment Field Below ) SEE COMMENTS SECTION 1T @10 XX ; Start 06/24/17 at 10:00; Stop 06/24/17 at 10:00; Status DC Non-Formulary Medication ( See Comment Field Below ) SEE LABEL COMMENTS DAILY XX ; Start 06/22/17 at 09:00; Stop 06/23/17 at 09:09; Status DC Olanzapine (ZyPREXA ZYDIS) 10 mg Q4HP PRN PO ANXIETY/AGITATION; Start 06/18 at 22:45; Stop 06/20/17 at 14:45; Status DC Olanzapine (ZyPREXA ZYDIS) 10 mg Q8H PO Last administered on 06/29/17 13:24 ; Start 06/20/17 at 14:00; Stop 07/18/17 at 13:59 Prednisone (Deltasone) 40 mg DAILY PO Last administered on 06/25/17 07:59; Start 06/23/17 at 09:00; Stop 06/25/17 at 12:00; Status DC Risperidone (RisperDAL) 0.5 mg BID PO ; Start 06/29/17 at 21:00; Stop 07/29/17 at 08:59 Risperidone (RisperDAL) 1 mg TID PO ; Start 06/29/17 at 09:00; Stop 06/29/17 at 11 :58; Status DC Trazodone HCl (Desyrel) 50 mg QHS PO ; Start 06/18/17 at 21:00; Stop 06/19/17 at 00:08; Status DC Trazodone HCl (Desyrel) 50 mg QHS PO Last administered on 06/28/17t 20:10; Start 06/19/17 at 21:00; Stop 07/19/17 at 20:59 Allergies Coded Allergies: Codeine (Verified Allergy, Intermediate, 05/29/17) Penicillins (Verified Allergy, Intermediate, 01/16/17) DANIEL LEUNG MD Jun 29, 2017 20:23
[2017-06-30] MEDS: OLANZapine ORAL DISINTEGRATING TAB 5MG PO SCH (06:33)
[2017-06-30] MEDS: DOCUSATE SODIUM 100 MG CAP PO SCH ×2 (08:25→20:02)
[2017-06-30] MEDS: DIVALPROEX 500MG *ER* TAB PO SCH ×2 (08:25→20:03)
[2017-06-30] MEDS: FAMOTIDINE 20 MG TAB PO SCH ×2 (08:25→20:03)
[2017-06-30] MEDS: clonazePAM 0.5 MG TAB PO SCH ×3 (08:25→20:03)
[2017-06-30] MEDS: BENZTROPINE 1 MG TAB PO SCH (08:25)
[2017-06-30] MEDS: MULTIVITAMINS/MINERALS THERAP 1 TAB PO SCH (08:25)
[2017-06-30] MEDS: LACOSAMIDE 50 MG TAB (VIMPAT) PO SCH ×2 (08:25→20:03)
[2017-06-30] MEDS: risperiDONE 1 MG TAB PO SCH ×4 (08:26→20:03)
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
[2017-06-30 18:00] VITALS: BP 118/68
[2017-06-30] MEDS: IBUPROFEN 600 MG TAB PO PRN (18:32)
[2017-06-30] MEDS: traZODone 50 MG TAB PO SCH (20:02)
[2017-06-30] MEDS: hydrOXYzine 50 MG TAB PO PRN (20:03)
[2017-06-30] MEDS: diphenhydrAMINE 50 MG CAP PO PRN (20:03)
[2017-06-30] MEDS ORDERED: risperiDONE 1 MG TAB PO SCH (21:00)
[2017-06-30] MEDS ORDERED: risperiDONE 0.5 MG TAB PO SCH (21:00)
[2017-07-01] MEDS: LACOSAMIDE 50 MG TAB (VIMPAT) PO SCH ×2 (08:11→20:02)
[2017-07-01] MEDS: MULTIVITAMINS/MINERALS THERAP 1 TAB PO SCH (08:11)
[2017-07-01] MEDS: BENZTROPINE 1 MG TAB PO SCH (08:11)
[2017-07-01] MEDS: risperiDONE 1 MG TAB PO SCH ×4 (08:11→20:02)
[2017-07-01] MEDS: DIVALPROEX 500MG *ER* TAB PO SCH ×2 (08:11→20:02)
[2017-07-01] MEDS: DOCUSATE SODIUM 100 MG CAP PO SCH ×2 (08:11→20:02)
[2017-07-01] MEDS: clonazePAM 0.5 MG TAB PO SCH ×3 (08:11→20:02)
[2017-07-01] MEDS: FAMOTIDINE 20 MG TAB PO SCH ×2 (08:11→20:02)
[2017-07-01] MEDS: IBUPROFEN 600 MG TAB PO PRN (08:41)
[2017-07-01] MEDS: HALOPERIDOL 10 MG TAB PO PRN (10:19)
[2017-07-01] MEDS: hydrOXYzine 50 MG TAB PO PRN ×2 (16:10→23:23)
[2017-07-01 18:21] VITALS: BP 125/62
[2017-07-01] MEDS: traZODone 50 MG TAB PO SCH (20:02)
[2017-07-01] MEDS: diphenhydrAMINE 50 MG CAP PO PRN (23:22)
[2017-07-02] MEDS: risperiDONE 1 MG TAB PO SCH ×4 (08:11→20:08)
[2017-07-02] MEDS: DOCUSATE SODIUM 100 MG CAP PO SCH ×2 (08:11→20:08)
[2017-07-02] MEDS: DIVALPROEX 500MG *ER* TAB PO SCH ×2 (08:11→20:08)
[2017-07-02] MEDS: FAMOTIDINE 20 MG TAB PO SCH ×2 (08:11→20:08)
[2017-07-02] MEDS: BENZTROPINE 1 MG TAB PO SCH (08:11)
[2017-07-02] MEDS: LACOSAMIDE 50 MG TAB (VIMPAT) PO SCH ×2 (08:11→20:08)
[2017-07-02] MEDS: clonazePAM 0.5 MG TAB PO SCH ×3 (08:11→20:08)
[2017-07-02] MEDS: MULTIVITAMINS/MINERALS THERAP 1 TAB PO SCH (08:11)
[2017-07-02] MEDS: hydrOXYzine 50 MG TAB PO PRN (11:26)
[2017-07-02] MEDS: OLANZapine ORAL DISINTEGRATING TAB 5MG PO PRN (11:26)
[2017-07-02] MEDS: IBUPROFEN 600 MG TAB PO PRN (13:40)
[2017-07-02 18:21] VITALS: BP 121/68
--- NOTE | 2017-07-02 19:33 | IPN ---
DATE: 07/02/2017 SUBJECTIVE: The patient today states, "I feel the Risperdal helps me clear out my thoughts. " He feels "I'm hallucinating a lot less." MENTAL STATUS EXAMINATION: This patient is alert and oriented times three. Eye contact is fair. Psychomotor activity is normal. He is verbally spontaneous. There is no formal thought disorder. He continues to have auditory hallucinations, but he says they are not as intense, and appears to be less paranoid. Insight and judgment are poor. DIAGNOSES: 1. Schizophrenia. 2. 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 3. Traumatic brain injury by history. TREATMENT PLAN: We will continue this patient on one-to-one observation level due to his impulsive behavior. We will continue to titrate his medications as indicated and to monitor for continued resolution of any psychotic symptoms and resolution of any suicidal or homicidal ideations. RONNY
[2017-07-02] MEDS: traZODone 50 MG TAB PO SCH (20:42)
--- NOTE | 2017-07-02 21:09 | IPN ---
DATE: 07/01/2017 The patient states that he is doing fine, but he then asked whether I would prescribe some Seroquel for him. He seems to recall that he took Seroquel at one time in his life and it did help. He has no complaints. MENTAL STATUS EXAM: The patient was seen in his room in a wheelchair. He was somewhat pleasant today. He indicated that he was doing fine. There is formal thought disorder noted. His mood was fine and his affect constricted and appropriate to his mood. He was not suicidal or homicidal. Concentration fair. Insight and judgment poor. DIAGNOSIS: 1. Paranoid schizophrenia and major cognitive disorder Will continue the patient on one-to-one observation. He continues to be very easily agitated and gets aggressive with others. We will continue to monitor the patient for his continued paranoid thoughts and we will continue to monitor the patient on one-to-one observation level. I explained to the patient that he is already on two antipsychotics including Risperdal and Haldol decanoate and then at this point I do not think that adding a third antipsychotic with Seroquel. [facility]PITALAndreea
[2017-07-03 06:53] VITALS: BP 136/79
[2017-07-03] MEDS: DOCUSATE SODIUM 100 MG CAP PO SCH ×2 (08:38→20:14)
[2017-07-03] MEDS: DIVALPROEX 500MG *ER* TAB PO SCH ×2 (08:38→20:14)
[2017-07-03] MEDS: MULTIVITAMINS/MINERALS THERAP 1 TAB PO SCH (08:38)
[2017-07-03] MEDS: FAMOTIDINE 20 MG TAB PO SCH ×2 (08:38→20:14)
[2017-07-03] MEDS: LACOSAMIDE 50 MG TAB (VIMPAT) PO SCH ×2 (08:38→20:14)
[2017-07-03] MEDS: clonazePAM 0.5 MG TAB PO SCH ×3 (08:38→20:14)
[2017-07-03] MEDS: risperiDONE 1 MG TAB PO SCH ×4 (08:38→20:14)
[2017-07-03] MEDS: BENZTROPINE 1 MG TAB PO SCH (08:39)
[2017-07-03] MEDS ORDERED: ISOVUE-370 76% 100ML VIAL (Q9967) As Ordered ONE (11:17)
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
[2017-07-03 18:00] VITALS: BP 109/67
[2017-07-03] MEDS: traZODone 50 MG TAB PO SCH (20:14)
[2017-07-03] MEDS: OLANZapine ORAL DISINTEGRATING TAB 5MG PO PRN (20:20)
--- NOTE | 2017-07-03 21:07 | MHIPNPDOC ---
[facility] Progress Note Progress Note DATE OF SERVICE: 07/03/17 Interval History: Patient has requested to be discharged to his aunt once againand this com writer has told him he will be discharged to his aunt only if his aunt r feels comfortable with him at home. Recently he had been asking to be discharged to his father but his father said he was not capable of taking care of him. Father was contacted after patient signed a RENE. According to staff a Doctor came to see him at the [facility] , who was supposed to take his cast off but he didn't do it, he didn't say why. Today he requested a CT scan because he doesn't believe he has a TBI, he thinks he has dementia. He has never had a CT scan at the [facility], so, it was done. VITAL SIGNS: See below. NEW TEST RESULTS: N/A CURRENT MEDICATIONS: See below. MENTAL STATUS EXAMINATION: Patient is a 36-year old male, less angry, more pleasant, fixated on being discharged to his aunt, with fair eye contact, uncooperative Speech: Soft spoken Language skills are fair Thought processes including: Irrational, not coherent Thought content: Anxious, reluctant to accept going to [facility] Abstract reasoning, and computation: patient has difficulty with computation due to TBI. Description of associations: Good Description of abnormal or psychotic thoughts: Denies SI/HI, denies A/V hallucinations, but admits to feel paranoid. Judgment: Poor Insight: Poor Orientation: Oriented to place and person, partially to date and time Recent and remote memory: Poor Attention span and concentration: Poor. Language: Normal. Fund of knowledge: Limited due to TBI. Mood: Anxious Affect: Congruent to mood DIAGNOSES: 1. Paranoid schizophrenia 2. 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 TBI by history MANAGEMENT PLAN: CT angiography was performed. There's no signs of dementia or infacts. Patient is responding well to Risperdal. Will continue on the same medications. TIME SPENT: 30 minutes. Vital Signs Vital Signs Date Time Temp Pulse Resp B/P (MAP) Pulse Ox O2 Delivery O2 Flow Rate FiO2 07/03/17 18:00 99.1 104 16 109/67 (81) 07/03/17 06:53 Room Air 06/27/17 09:26 97 Current Medications Current Medications Acetaminophen (Tylenol Tab) 650 mg Q6HP PRN PO HEADACHE or DISCOMFORT Last administered on 06/29/17 15:48; Start 06/18/17 at 23:45; Stop 07/18/17 at 23:44 Al Hydrox/Mg Hydrox/Simethicone (Mylanta) 30 ml Q4HP PRN PO HEARTBURN/ INDIGESTION Last administered on 06/28/17 18:41; Start 06/18/17 at 23:45; Stop 07/18/17 at 23:44 Albuterol Sulfate (Proventil, Ventolin Hfa) 2 puff Q4HP PRN INH SHORTNESS OF BREATH; Start 06/19/17 at 09:45; Stop 07/19/17 at 09:44 Benztropine Mesylate (Cogentin) 1 mg DAILY PO Last administered on 07/03/17 08 :39; Start 06/19/17 at 09:00; Stop 07/19/17 at 08:59 Clonazepam (KlonoPIN) 0.5 mg TID PO Last administered on 07/03/17 20:14; Start 06/27/17 at 16:00; Stop 07/10/17 at 15:59 Diphenhydramine HCl (Benadryl) 50 mg Q6HP PRN PO ITCHING Last administered on 23:22; Start 06/23/17 at 18:15; Stop 07/23/17 at 18:14 Diphenhydramine HCl (Benadryl) 50 mg Q8HP PRN PO ANXIETY/AGITATION Last administered on 06/22/17 18:38; Start 06/18/17 at 22:45; Stop 06/23/17 at 18:09 ; Status DC Divalproex Sodium (Depakote Er) 500 mg BID PO Last administered on 07/03/17 20 :14; Start 06/19/17 at 09:00; Stop 07/19/17 at 08:59 Docusate Sodium (Colace) 100 mg BID PO Last administered on 07/03/17 20:14; Start 06/19/17 at 09:00; Stop 07/19/17 at 08:59 Famotidine (Pepcid) 40 mg BID PO Last administered on 07/03/17 20:14; Start at 09:00; Stop 07/19/17 at 08:59 Haloperidol (Haldol) 5 mg STAT STAT IM Last administered on 06/18/17 22:02; Start 06/18/17 at 22:02; Stop 06/18/17 at 22:09; Status DC Haloperidol (Haldol) 10 mg Q8HP PRN PO ANXIETY/AGITATION Last administered on 10:19; Start 06/18/17 at 22:45; Stop 07/18/17 at 22:44 Haloperidol Decanoate (Haldol Decanoate) 100 mg Q14D IM Last administered on 15:23; Start 06/21/17 at 09:00; Stop 07/21/17 at 08:59 Home Med (Med Rec Complete!) ASDIRECTED XX ; Start 06/18/17 at 23:15; Stop at 23:15; Status DC Hydroxyzine HCl (Atarax) 50 mg Q4HP PRN PO AGITATION Last administered on 11:23; Start 06/18/17 at 23:45; Stop 06/23/17 at 10:03; Status DC Hydroxyzine HCl (Atarax) 100 mg Q4HP PRN PO AGITATION Last administered on 07/02 11:26; Start 06/23/17 at 10:00; Stop 07/23/17 at 09:59 Ibuprofen (Advil) 600 mg Q8HP PRN PO PAIN Last administered on 07/02/17 13:40 ; Start 06/23/17 at 14:00; Stop 07/23/17 at 13:59 Lacosamide (Vimpat) 50 mg BID PO Last administered on 07/03/17 20:14; Start at 21:00; Stop 07/06/17 at 20:59 Lamotrigine (LaMICtal) 50 mg BID PO Last administered on 06/23/17 08:29; Start 06/19/17 at 09:00; Stop 06/23/17 at 14:03; Status DC Lamotrigine (LaMICtal) 50 mg QAM PO ; Start 06/24/17 at 09:00; Stop 06/24/17 at 09 :00; Status DC Lorazepam (Ativan) 0.5 mg Q8H PO Last administered on 06/27/17 06:47; Start at 22:00; Stop 06/27/17 at 13:11; Status DC Lorazepam (Ativan) 1 mg QID PO Last administered on 06/20/17 16:10; Start at 09:00; Stop 06/20/17 at 20:30; Status DC Magnesium Hydroxide (Milk Of Magnesia) 30 ml DAILYPRN PRN PO CONSTIPATION; Start 06/18/17 at 23:45; Stop 07/18/17 at 23:44 Multivitamins (Theragram-M) 1 tab DAILY PO Last administered on 07/03/17 08:38 ; Start 06/19/17 at 09:00; Stop 07/19/17 at 08:59 Non-Formulary Medication ( See Comment Field Below ) SEE COMMENTS SECTION 1T @10 XX ; Start 06/24/17 at 10:00; Stop 06/24/17 at 10:00; Status DC Non-Formulary Medication ( See Comment Field Below ) SEE LABEL COMMENTS DAILY XX ; Start 06/22/17 at 09:00; Stop 06/23/17 at 09:09; Status DC Olanzapine (ZyPREXA ZYDIS) 5 mg Q6HP PRN PO ANXIETY/AGITATION Last administered on 07/03/17 20:20; Start 06/30/17 at 13:15; Stop 07/30/17 at 13:14 Olanzapine (ZyPREXA ZYDIS) 10 mg Q4HP PRN PO ANXIETY/AGITATION; Start 06/18 at 22:45; Stop 06/20/17 at 14:45; Status DC Olanzapine (ZyPREXA ZYDIS) 10 mg Q8H PO Last administered on 06/30/17 06:33 ; Start 06/20/17 at 14:00; Stop 06/30/17 at 12:11; Status DC Prednisone (Deltasone) 40 mg DAILY PO Last administered on 06/25/17 07:59; Start 06/23/17 at 09:00; Stop 06/25/17 at 12:00; Status DC Risperidone (RisperDAL) 0.5 mg BID PO Last administered on 06/30/17 08:26; Start 06/29/17 at 21:00; Stop 06/30/17 at 09:01; Status DC Risperidone (RisperDAL) 0.5 mg BID PO ; Start 06/30/17 at 21:00; Stop 06/30/17 at 21:00; Status DC Risperidone (RisperDAL) 1 mg BID PO ; Start 06/30/17 at 21:00; Stop 06/30/17 at 21 :00; Status DC Risperidone (RisperDAL) 1 mg QID PO Last administered on 07/03/17 20:14; Start 06/30/17 at 13:00; Stop 07/30/17 at 12:59 Risperidone (RisperDAL) 1 mg TID PO ; Start 06/29/17 at 09:00; Stop 06/29/17 at 11 :58; Status DC Trazodone HCl (Desyrel) 50 mg QHS PO ; Start 06/18/17 at 21:00; Stop 06/19/17 at 00:08; Status DC Trazodone HCl (Desyrel) 50 mg QHS PO Last administered on 07/03/17 20:14; Start 06/19/17 at 21:00; Stop 07/19/17 at 20:59 Allergies Coded Allergies: Codeine (Verified Allergy, Intermediate, 05/29/17) Penicillins (Verified Allergy, Intermediate, 01/16/17) DANIEL LEUNG MD Jul 03, 2017 21:07
[2017-07-04 06:58] VITALS: BP 98/53
[2017-07-04 07:10] LABS: MEAN CORPUSCULAR HEMOGLOBIN 31.6 pg (27.0-33.0); MEAN CORPUSCULAR HGB CONC 33.1 g/dl (32.0-36.5); MEAN CORPUSCULAR VOLUME 95.5 fl (80.0-96.0); RED CELL DISTRIBUTION WIDTH 12.9 % (11.5-14.5); WHITE BLOOD COUNT 4.8 K/mm3 (4.0-10.0)
[2017-07-04 07:30] LABS: ALBUMIN 3.1 GM/DL (3.2-5.2); ALBUMIN/GLOBULIN RATIO 1.29 (1.00-1.93); ALKALINE PHOSPHATASE 66 U/L (45-117); ALT/SGPT 89 U/L (12-78); ANION GAP 5 MEQ/L (8-16); AST/SGOT 26 U/L (15-37); BILIRUBIN,TOTAL 0.3 MG/DL (0.2-1.0); BLOOD UREA NITROGEN 13 MG/DL (7-18); CALCIUM LEVEL 8.1 MG/DL (8.5-10.1); CARBON DIOXIDE LEVEL 31 MEQ/L (21-32); CHLORIDE LEVEL 105 MEQ/L (98-107); CREATININE FOR GFR 0.55 MG/DL (0.70-1.30); GLOMERULAR FILTRATION RATE > 60.0 (>60); GLUCOSE, FASTING 82 MG/DL (70-105); POTASSIUM SERUM 4.2 MEQ/L (3.5-5.1); SODIUM LEVEL 141 MEQ/L (136-145); TOTAL PROTEIN 5.5 GM/DL (6.4-8.2)
[2017-07-04] MEDS: BENZTROPINE 1 MG TAB PO SCH (08:27)
[2017-07-04] MEDS: LACOSAMIDE 50 MG TAB (VIMPAT) PO SCH ×2 (08:27→20:00)
[2017-07-04] MEDS: DOCUSATE SODIUM 100 MG CAP PO SCH ×2 (08:27→20:00)
[2017-07-04] MEDS: risperiDONE 1 MG TAB PO SCH ×4 (08:27→20:00)
[2017-07-04] MEDS: clonazePAM 0.5 MG TAB PO SCH ×3 (08:27→20:00)
[2017-07-04] MEDS: FAMOTIDINE 20 MG TAB PO SCH ×2 (08:27→20:00)
[2017-07-04] MEDS: MULTIVITAMINS/MINERALS THERAP 1 TAB PO SCH (08:27)
[2017-07-04] MEDS: DIVALPROEX 500MG *ER* TAB PO SCH ×2 (08:27→20:00)
--- NOTE | 2017-07-04 08:34 | REP ---
Clinical: Positioning. Technique: AP and lateral views of the right tibia / fibula. Findings: Subtle nondisplaced fracture of the distal fibula at the lateral malleolus with overlying soft tissue swelling is again appreciated through overlying cast material. No other fracture or dislocation is appreciated. Impression: Nondisplaced distal fibular tip fracture with overlying soft tissue swelling. Signed by Sal Caban MD 07/04/2017 08:26 A
[2017-07-04] MEDS: IBUPROFEN 600 MG TAB PO PRN ×2 (10:51→19:56)
[2017-07-04 18:00] VITALS: BP 106/62
[2017-07-04] MEDS: ACETAMINOPHEN TAB 650MG DOSE (2X325MG) PO PRN (18:25)
--- NOTE | 2017-07-04 19:19 | MHIPNPDOC ---
[facility] Progress Note Progress Note DATE OF SERVICE: 07/04/17 Interval History: Patient once again requests to be discharged to his father's care and asked why can't he go live with him. This consumer loan underwriter explained to him that his father possibly can't take care of him, that he would require continuous supervision and that would be very difficult for any family member. He requested to use Adderall because he used it as a teen ager and it helped him focus and I explained this is not possible because Adderall would trigger seizures and he already has a seizure disorder, it woul make him more irritable , more anxious, more depressed and more paranoid. He said he wants Adderall because he wants to be able to focus and remember facts, persons, situations and he can't. Then, he asked if there's a medicine that can help him recover his memory and if he was going to be able to mary kate out from [facility] VITAL SIGNS: See below. NEW TEST RESULTS: N/A CURRENT MEDICATIONS: See below. MENTAL STATUS EXAMINATION: Patient is a 36-year old male, pleasant, fixated on being discharged to his father, with poor eye contact Speech: Irrational Language skills are fair Thought processes including: Irrational,not coherent Thought content: Anxious, reluctant to accept going to [facility] Abstract reasoning, and computation: patient has difficulty with computation due to TBI. Description of associations: Not loose Description of abnormal or psychotic thoughts: Denies SI/HI, denies A/V hallucinations, but admits to feel paranoid and anxious Judgment: Poor Insight: Poor Orientation: Oriented to place and person, partially to date and time Recent and remote memory: Poor Attention span and concentration: Poor. Language: Normal. Fund of knowledge: Limited due to TBI. Mood: Anxious/depressed Affect: Congruent to mood DIAGNOSES: 1. Paranoid schizophrenia 2. 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 TBI by history MANAGEMENT PLAN: Patient will be transferred to [facility] in two days. Patient is less angry since he has been on Risperdal instead of Zyprexa. Will continue to monitor mood/behavioral problems. TIME SPENT: 30 minutes. Vital Signs Vital Signs Date Time Temp Pulse Resp B/P (MAP) Pulse Ox O2 Delivery O2 Flow Rate FiO2 07/04/17 18:00 98.5 95 16 106/62 (77) 07/04/17 06:58 Room Air Laboratory Data 24H Labs Laboratory Tests 2 07/04/17 06:56: Anion Gap 5L, Glomerular Filtration Rate > 60.0, Blood Urea Nitrogen 13, Creatinine 0.55L, Sodium Level 141, Potassium Level 4.2, Chloride Level 105, Carbon Dioxide Level 31, Calcium Level 8.1L, Aspartate Amino Transf (AST/SGOT) 26, Alanine Aminotransferase (ALT/SGPT) 89H, Alkaline Phosphatase 66, Total Bilirubin 0.3, Total Protein 5.5L, Albumin 3.1L, Albumin/Globulin Ratio 1.29 CBC/BMP Laboratory Tests 07/04/17 06:56 Red Blood Count 3.87 L, Mean Corpuscular Volume 95.5, Mean Corpuscular Hemoglobin 31.6, Mean Corpuscular Hemoglobin Concent 33.1, Red Cell Distribution Width 12.9, Calcium Level 8.1 L, Aspartate Amino Transf (AST/SGOT) 26, Alanine Aminotransferase (ALT/SGPT) 89 H, Alkaline Phosphatase 66, Total Bilirubin 0.3, Total Protein 5.5 L, Albumin 3.1 L Current Medications Current Medications Acetaminophen (Tylenol Tab) 650 mg Q6HP PRN PO HEADACHE or DISCOMFORT Last administered on 07/04/17 18:25; Start 06/18/17 at 23:45; Stop 07/18/17 at 23:44 Al Hydrox/Mg Hydrox/Simethicone (Mylanta) 30 ml Q4HP PRN PO HEARTBURN/ INDIGESTION Last administered on 06/28/17 18:41; Start 06/18/17 at 23:45; Stop 07/18/17 at 23:44 Albuterol Sulfate (Proventil, Ventolin Hfa) 2 puff Q4HP PRN INH SHORTNESS OF BREATH; Start 06/19/17 at 09:45; Stop 07/19/17 at 09:44 Benztropine Mesylate (Cogentin) 1 mg DAILY PO Last administered on 07/04/17 08 :27; Start 06/19/17 at 09:00; Stop 07/19/17 at 08:59 Clonazepam (KlonoPIN) 0.5 mg TID PO Last administered on 07/04/17 15:10; Start 06/27/17 at 16:00; Stop 07/10/17 at 15:59 Diphenhydramine HCl (Benadryl) 50 mg Q6HP PRN PO ITCHING Last administered on 23:22; Start 06/23/17 at 18:15; Stop 07/23/17 at 18:14 Diphenhydramine HCl (Benadryl) 50 mg Q8HP PRN PO ANXIETY/AGITATION Last administered on 06/22/17 18:38; Start 06/18/17 at 22:45; Stop 06/23/17 at 18:09 ; Status DC Divalproex Sodium (Depakote Er) 500 mg BID PO Last administered on 07/04/17 08 :27; Start 06/19/17 at 09:00; Stop 07/19/17 at 08:59 Docusate Sodium (Colace) 100 mg BID PO Last administered on 07/04/17 08:27; Start 06/19/17 at 09:00; Stop 07/19/17 at 08:59 Famotidine (Pepcid) 40 mg BID PO Last administered on 07/04/17 08:27; Start at 09:00; Stop 07/19/17 at 08:59 Haloperidol (Haldol) 5 mg STAT STAT IM Last administered on 06/18/17 22:02; Start 06/18/17 at 22:02; Stop 06/18/17 at 22:09; Status DC Haloperidol (Haldol) 10 mg Q8HP PRN PO ANXIETY/AGITATION Last administered on 10:19; Start 06/18/17 at 22:45; Stop 07/18/17 at 22:44 Haloperidol Decanoate (Haldol Decanoate) 100 mg Q14D IM Last administered on 15:23; Start 06/21/17 at 09:00; Stop 07/21/17 at 08:59 Home Med (Med Rec Complete!) ASDIRECTED XX ; Start 06/18/17 at 23:15; Stop at 23:15; Status DC Hydroxyzine HCl (Atarax) 50 mg Q4HP PRN PO AGITATION Last administered on 11:23; Start 06/18/17 at 23:45; Stop 06/23/17 at 10:03; Status DC Hydroxyzine HCl (Atarax) 100 mg Q4HP PRN PO AGITATION Last administered on 07/02 11:26; Start 06/23/17 at 10:00; Stop 07/23/17 at 09:59 Ibuprofen (Advil) 600 mg Q8HP PRN PO PAIN Last administered on 07/04/17 10:51 ; Start 06/23/17 at 14:00; Stop 07/23/17 at 13:59 Lacosamide (Vimpat) 50 mg BID PO Last administered on 07/04/17 08:27; Start at 21:00; Stop 07/06/17 at 20:59 Lamotrigine (LaMICtal) 50 mg BID PO Last administered on 06/23/17 08:29; Start 06/19/17 at 09:00; Stop 06/23/17 at 14:03; Status DC Lamotrigine (LaMICtal) 50 mg QAM PO ; Start 06/24/17 at 09:00; Stop 06/24/17 at 09 :00; Status DC Lorazepam (Ativan) 0.5 mg Q8H PO Last administered on 06/27/17 06:47; Start at 22:00; Stop 06/27/17 at 13:11; Status DC Lorazepam (Ativan) 1 mg QID PO Last administered on 06/20/17 16:10; Start at 09:00; Stop 06/20/17 at 20:30; Status DC Magnesium Hydroxide (Milk Of Magnesia) 30 ml DAILYPRN PRN PO CONSTIPATION; Start 06/18/17 at 23:45; Stop 07/18/17 at 23:44 Multivitamins (Theragram-M) 1 tab DAILY PO Last administered on 07/04/17 08:27 ; Start 06/19/17 at 09:00; Stop 07/19/17 at 08:59 Non-Formulary Medication ( See Comment Field Below ) SEE COMMENTS SECTION 1T @10 XX ; Start 06/24/17 at 10:00; Stop 06/24/17 at 10:00; Status DC Non-Formulary Medication ( See Comment Field Below ) SEE LABEL COMMENTS DAILY XX ; Start 06/22/17 at 09:00; Stop 06/23/17 at 09:09; Status DC Olanzapine (ZyPREXA ZYDIS) 5 mg Q6HP PRN PO ANXIETY/AGITATION Last administered on 07/03/17 20:20; Start 06/30/17 at 13:15; Stop 07/30/17 at 13:14 Olanzapine (ZyPREXA ZYDIS) 10 mg Q4HP PRN PO ANXIETY/AGITATION; Start 06/18 at 22:45; Stop 06/20/17 at 14:45; Status DC Olanzapine (ZyPREXA ZYDIS) 10 mg Q8H PO Last administered on 06/30/17 06:33 ; Start 06/20/17 at 14:00; Stop 06/30/17 at 12:11; Status DC Prednisone (Deltasone) 40 mg DAILY PO Last administered on 06/25/17 07:59; Start 06/23/17 at 09:00; Stop 06/25/17 at 12:00; Status DC Risperidone (RisperDAL) 0.5 mg BID PO Last administered on 06/30/17 08:26; Start 06/29/17 at 21:00; Stop 06/30/17 at 09:01; Status DC Risperidone (RisperDAL) 0.5 mg BID PO ; Start 06/30/17 at 21:00; Stop 06/30/17 at 21:00; Status DC Risperidone (RisperDAL) 1 mg BID PO ; Start 06/30/17 at 21:00; Stop 06/30/17 at 21 :00; Status DC Risperidone (RisperDAL) 1 mg QID PO Last administered on 07/04/17 16:07; Start 06/30/17 at 13:00; Stop 07/30/17 at 12:59 Risperidone (RisperDAL) 1 mg TID PO ; Start 06/29/17 at 09:00; Stop 06/29/17 at 11 :58; Status DC Trazodone HCl (Desyrel) 50 mg QHS PO ; Start 06/18/17 at 21:00; Stop 06/19/17 at 00:08; Status DC Trazodone HCl (Desyrel) 50 mg QHS PO Last administered on 07/03/17 20:14; Start 06/19/17 at 21:00; Stop 07/19/17 at 20:59 Allergies Coded Allergies: Codeine (Verified Allergy, Intermediate, 05/29/17) Penicillins (Verified Allergy, Intermediate, 01/16/17) DANIEL LEUNG MD Jul 04, 2017 19:19
[2017-07-04] MEDS: traZODone 50 MG TAB PO SCH (20:00)
[2017-07-04] MEDS: OLANZapine ORAL DISINTEGRATING TAB 5MG PO PRN (20:00)
[2017-07-05 06:51] VITALS: BP 129/74
[2017-07-05] MEDS: DOCUSATE SODIUM 100 MG CAP PO SCH ×2 (08:44→20:05)
[2017-07-05] MEDS: BENZTROPINE 1 MG TAB PO SCH (08:44)
[2017-07-05] MEDS: clonazePAM 0.5 MG TAB PO SCH ×3 (08:44→20:05)
[2017-07-05] MEDS: LACOSAMIDE 50 MG TAB (VIMPAT) PO SCH ×2 (08:44→20:04)
[2017-07-05] MEDS: DIVALPROEX 500MG *ER* TAB PO SCH ×2 (08:44→20:04)
[2017-07-05] MEDS: FAMOTIDINE 20 MG TAB PO SCH ×2 (08:44→20:05)
[2017-07-05] MEDS: MULTIVITAMINS/MINERALS THERAP 1 TAB PO SCH (08:44)
[2017-07-05] MEDS: risperiDONE 1 MG TAB PO SCH ×4 (08:44→20:05)
[2017-07-05] MEDS: OLANZapine ORAL DISINTEGRATING TAB 5MG PO PRN (08:45)
[2017-07-05] MEDS: IBUPROFEN 600 MG TAB PO PRN ×2 (10:22→20:05)
[2017-07-05] MEDS: HALOPERIDOL DECANOATE 100 MG/ML VIAL (J1631) IM SCH (13:33)
--- NOTE | 2017-07-05 18:32 | MHIPNPDOC ---
[facility] Progress Note Progress Note DATE OF SERVICE: 07/05/17 Interval History: Today, pt. was requesting pain medication, requiring to be discharged to his father, once again. He said he felt better because the cast was removed from his foot, but he still expressed anxiety over his transfer to [facility]. He has been on a sitter because he needed to restrict his fluids intake but as soon as his sitter was discontinued, he became a behavioral issue because he was slamming doors, cursing. Nursing staff said they would try to keep him busy and distract him to help him lower his anxiety and frustration. VITAL SIGNS: See below. NEW TEST RESULTS: N/A CURRENT MEDICATIONS: See below. MENTAL STATUS EXAMINATION: Patient is a 36-year old male, dressed in persona clothes, without a cast on his foot, poor eye contact Speech: Not coherent, soft spoken, shows thought blocking Language skills are fair Thought processes including: Not coherent Thought content: Anxious Abstract reasoning, and computation: patient has difficulty with computation due to TBI. Description of associations: Good Description of abnormal or psychotic thoughts: Denies SI/HI, he says he has auditory hallucinations and visual hallucinations, more pronounced in the morning hours, admits to feel paranoid and anxious Judgment: Poor Insight: Poor Orientation: Oriented to place and person, partially to date and time Recent and remote memory: Poor Attention span and concentration: Poor. Language: Normal. Fund of knowledge: Limited due to TBI. Mood: Anxious/depressed/irritable Affect: Congruent to mood DIAGNOSES: 1. Paranoid schizophrenia 2. 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 TBI by history MANAGEMENT PLAN: Transfer plan has changed. [facility] has called and said they're waiting for him on MondayJuly 10. Patient was started today on Sertraline 50 mgs. PO QD, since he is becoming anxious and depressed. He has become more irritable and his anxiety is making his paranoia worse. TIME SPENT: minutes. Vital Signs Vital Signs Date Time Temp Pulse Resp B/P (MAP) Pulse Ox O2 Delivery O2 Flow Rate FiO2 07/05/17 06:51 97.0 75 16 129/74 (92) Room Air Current Medications Current Medications Acetaminophen (Tylenol Tab) 650 mg Q6HP PRN PO HEADACHE or DISCOMFORT Last administered on 07/04/17t 18:25; Start 06/18/17 at 23:45; Stop 07/18/17 at 23:44 Al Hydrox/Mg Hydrox/Simethicone (Mylanta) 30 ml Q4HP PRN PO HEARTBURN/ INDIGESTION Last administered on 06/28/17 18:41; Start 06/18/17 at 23:45; Stop 07/18/17 at 23:44 Albuterol Sulfate (Proventil, Ventolin Hfa) 2 puff Q4HP PRN INH SHORTNESS OF BREATH; Start 06/19/17 at 09:45; Stop 07/19/17 at 09:44 Benztropine Mesylate (Cogentin) 1 mg DAILY PO Last administered on 07/05/17 08 :44; Start 06/19/17 at 09:00; Stop 07/19/17 at 08:59 Clonazepam (KlonoPIN) 0.5 mg TID PO Last administered on 07/05/17 16:15; Start 06/27/17 at 16:00; Stop 07/10/17 at 15:59 Diphenhydramine HCl (Benadryl) 50 mg Q6HP PRN PO ITCHING Last administered on 23:22; Start 06/23/17 at 18:15; Stop 07/23/17 at 18:14 Diphenhydramine HCl (Benadryl) 50 mg Q8HP PRN PO ANXIETY/AGITATION Last administered on 06/22/17 18:38; Start 06/18/17 at 22:45; Stop 06/23/17 at 18:09 ; Status DC Divalproex Sodium (Depakote Er) 500 mg BID PO Last administered on 07/05/17 08 :44; Start 06/19/17 at 09:00; Stop 07/19/17 at 08:59 Docusate Sodium (Colace) 100 mg BID PO Last administered on 07/05/17 08:44; Start 06/19/17 at 09:00; Stop 07/19/17 at 08:59 Famotidine (Pepcid) 40 mg BID PO Last administered on 07/05/17 08:44; Start at 09:00; Stop 07/19/17 at 08:59 Haloperidol (Haldol) 5 mg STAT STAT IM Last administered on 06/18/17 22:02; Start 06/18/17 at 22:02; Stop 06/18/17 at 22:09; Status DC Haloperidol (Haldol) 10 mg Q8HP PRN PO ANXIETY/AGITATION Last administered on 10:19; Start 06/18/17 at 22:45; Stop 07/18/17 at 22:44 Haloperidol Decanoate (Haldol Decanoate) 100 mg Q14D IM Last administered on 13:33; Start 06/21/17 at 09:00; Stop 07/21/17 at 08:59 Home Med (Med Rec Complete!) ASDIRECTED XX ; Start 06/18/17 at 23:15; Stop at 23:15; Status DC Hydroxyzine HCl (Atarax) 50 mg Q4HP PRN PO AGITATION Last administered on 11:23; Start 06/18/17 at 23:45; Stop 06/23/17 at 10:03; Status DC Hydroxyzine HCl (Atarax) 100 mg Q4HP PRN PO AGITATION Last administered on 07/02 11:26; Start 06/23/17 at 10:00; Stop 07/23/17 at 09:59 Ibuprofen (Advil) 600 mg Q8HP PRN PO PAIN Last administered on 07/05/17 10:22 ; Start 06/23/17 at 14:00; Stop 07/23/17 at 13:59 Lacosamide (Vimpat) 50 mg BID PO Last administered on 07/05/17 08:44; Start at 21:00; Stop 07/06/17 at 20:59 Lamotrigine (LaMICtal) 50 mg BID PO Last administered on 06/23/17 08:29; Start 06/19/17 at 09:00; Stop 06/23/17 at 14:03; Status DC Lamotrigine (LaMICtal) 50 mg QAM PO ; Start 06/24/17 at 09:00; Stop 06/24/17 at 09 :00; Status DC Lorazepam (Ativan) 0.5 mg Q8H PO Last administered on 06/27/17 06:47; Start at 22:00; Stop 06/27/17 at 13:11; Status DC Lorazepam (Ativan) 1 mg QID PO Last administered on 06/20/17 16:10; Start at 09:00; Stop 06/20/17 at 20:30; Status DC Magnesium Hydroxide (Milk Of Magnesia) 30 ml DAILYPRN PRN PO CONSTIPATION; Start 06/18/17 at 23:45; Stop 07/18/17 at 23:44 Multivitamins (Theragram-M) 1 tab DAILY PO Last administered on 07/05/17 08:44 ; Start 06/19/17 at 09:00; Stop 07/19/17 at 08:59 Non-Formulary Medication ( See Comment Field Below ) SEE COMMENTS SECTION 1T @10 XX ; Start 06/24/17 at 10:00; Stop 06/24/17 at 10:00; Status DC Non-Formulary Medication ( See Comment Field Below ) SEE LABEL COMMENTS DAILY XX ; Start 06/22/17 at 09:00; Stop 06/23/17 at 09:09; Status DC Olanzapine (ZyPREXA ZYDIS) 5 mg Q6HP PRN PO ANXIETY/AGITATION Last administered on 07/05/17 08:45; Start 06/30/17 at 13:15; Stop 07/30/17 at 13:14 Olanzapine (ZyPREXA ZYDIS) 10 mg Q4HP PRN PO ANXIETY/AGITATION; Start 06/18 at 22:45; Stop 06/20/17 at 14:45; Status DC Olanzapine (ZyPREXA ZYDIS) 10 mg Q8H PO Last administered on 06/30/17 06:33 ; Start 06/20/17 at 14:00; Stop 06/30/17 at 12:11; Status DC Prednisone (Deltasone) 40 mg DAILY PO Last administered on 06/25/17 07:59; Start 06/23/17 at 09:00; Stop 06/25/17 at 12:00; Status DC Risperidone (RisperDAL) 0.5 mg BID PO Last administered on 06/30/17 08:26; Start 06/29/17 at 21:00; Stop 06/30/17 at 09:01; Status DC Risperidone (RisperDAL) 0.5 mg BID PO ; Start 06/30/17 at 21:00; Stop 06/30/17 at 21:00; Status DC Risperidone (RisperDAL) 1 mg BID PO ; Start 06/30/17 at 21:00; Stop 06/30/17 at 21 :00; Status DC Risperidone (RisperDAL) 1 mg QID PO Last administered on 07/05/17 16:15; Start 06/30/17 at 13:00; Stop 07/30/17 at 12:59 Risperidone (RisperDAL) 1 mg TID PO ; Start 06/29/17 at 09:00; Stop 06/29/17 at 11 :58; Status DC Trazodone HCl (Desyrel) 50 mg QHS PO ; Start 06/18/17 at 21:00; Stop 06/19/17 at 00:08; Status DC Trazodone HCl (Desyrel) 50 mg QHS PO Last administered on 07/04/17 20:00; Start 06/19/17 at 21:00; Stop 07/19/17 at 20:59 Allergies Coded Allergies: Codeine (Verified Allergy, Intermediate, 05/29/17) Penicillins (Verified Allergy, Intermediate, 01/16/17) DANIEL LEUNG MD Jul 05, 2017 18:32
[2017-07-05] MEDS: SERTRALINE HCL 50 MG TAB PO SCH (19:10)
[2017-07-05] MEDS: diphenhydrAMINE 50 MG CAP PO PRN (20:04)
[2017-07-05] MEDS: hydrOXYzine 50 MG TAB PO PRN (20:04)
[2017-07-05] MEDS: traZODone 50 MG TAB PO SCH (20:05)
[2017-07-06] MEDS: MULTIVITAMINS/MINERALS THERAP 1 TAB PO SCH (09:27)
[2017-07-06] MEDS: BENZTROPINE 1 MG TAB PO SCH (09:27)
[2017-07-06] MEDS: risperiDONE 1 MG TAB PO SCH ×4 (09:27→21:11)
[2017-07-06] MEDS: DOCUSATE SODIUM 100 MG CAP PO SCH ×2 (09:27→21:11)
[2017-07-06] MEDS: SERTRALINE HCL 50 MG TAB PO SCH (09:27)
[2017-07-06] MEDS: LACOSAMIDE 50 MG TAB (VIMPAT) PO SCH ×2 (09:27→21:11)
[2017-07-06] MEDS: DIVALPROEX 500MG *ER* TAB PO SCH ×2 (09:28→21:11)
[2017-07-06] MEDS: FAMOTIDINE 20 MG TAB PO SCH ×2 (09:28→21:12)
[2017-07-06] MEDS: clonazePAM 0.5 MG TAB PO SCH ×3 (09:28→21:11)
--- NOTE | 2017-07-06 15:51 | MHIPNPDOC ---
[facility] Progress Note Progress Note DATE OF SERVICE: 07/06/17 Interval History: Patient continues to request medications for muscle pain, he claims his calves are hurting. Discussed with him that his sodium and potassium levels were normal and this keno writer was going to ask PRICILA Damon if she agreed on him taking magnesium salts. Today he has requested to be discharged to his mother's grandmother as he has been doing it before, asking to be discharged to his father or to his aunt. Patient insists that he wants medications for his memory, continues to think Adderall will help him recover his memory. This issue has been discussed with him previously and this keno writer has explained to him that Adderall would be contraindicated for him because it will make him more paranoid, it will worsen his seizure disorder, it would make him more anxious and Adderall is not on medication that helps to recover memory. This is a very difficult situation with patient and he has difficulty accepting his situation. VITAL SIGNS: See below. NEW TEST RESULTS: N/A CURRENT MEDICATIONS: See below. MENTAL STATUS EXAMINATION: Patient is a 36-year old male, dressed in personal clothes, poor eye contact. Speech: Not coherent Language skills are fair Thought processes including: Irrational Thought content: Anxious, focused on being able to recover his memory and being discharged to family members. Abstract reasoning, and computation: patient has difficulty with computation due to TBI. Description of associations: Good Description of abnormal or psychotic thoughts: Denies SI/HI, he says he has auditory hallucinations and visual hallucinations, more pronounced in the morning hours, admits to feel paranoid and anxious Judgment: Poor Insight: Poor Orientation: Oriented to place and person, partially to date and time Recent and remote memory: Poor Attention span and concentration: Poor. Language: Normal. Fund of knowledge: Limited due to TBI. Mood: Anxious Affect: Anxious DIAGNOSES: 1. Paranoid schizophrenia 2. 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 TBI by history MANAGEMENT PLAN: [place] [facility] [place] We'll continue on the same medications. TIME SPENT: 30 minutes. Vital Signs Vital Signs Date Time Temp Pulse Resp B/P (MAP) Pulse Ox O2 Delivery O2 Flow Rate FiO2 07/05/17 06:51 97.0 75 16 129/74 (92) Room Air Current Medications Current Medications Acetaminophen (Tylenol Tab) 650 mg Q6HP PRN PO HEADACHE or DISCOMFORT Last administered on 07/04/17 18:25; Start 06/18/17 at 23:45; Stop 07/18/17 at 23:44 Al Hydrox/Mg Hydrox/Simethicone (Mylanta) 30 ml Q4HP PRN PO HEARTBURN/ INDIGESTION Last administered on 06/28/17 18:41; Start 06/18/17 at 23:45; Stop 07/18/17 at 23:44 Albuterol Sulfate (Proventil, Ventolin Hfa) 2 puff Q4HP PRN INH SHORTNESS OF BREATH; Start 06/19/17 at 09:45; Stop 07/19/17 at 09:44 Benztropine Mesylate (Cogentin) 1 mg DAILY PO Last administered on 07/06/17 09 :27; Start 06/19/17 at 09:00; Stop 07/19/17 at 08:59 Clonazepam (KlonoPIN) 0.5 mg TID PO Last administered on 07/06/17 09:28; Start 06/27/17 at 16:00; Stop 07/10/17 at 15:59 Diphenhydramine HCl (Benadryl) 50 mg Q6HP PRN PO ITCHING Last administered on 20:04; Start 06/23/17 at 18:15; Stop 07/23/17 at 18:14 Diphenhydramine HCl (Benadryl) 50 mg Q8HP PRN PO ANXIETY/AGITATION Last administered on 06/22/17 18:38; Start 06/18/17 at 22:45; Stop 06/23/17 at 18:09 ; Status DC Divalproex Sodium (Depakote Er) 500 mg BID PO Last administered on 07/06/17 09 :28; Start 06/19/17 at 09:00; Stop 07/19/17 at 08:59 Docusate Sodium (Colace) 100 mg BID PO Last administered on 07/06/17 09:27; Start 06/19/17 at 09:00; Stop 07/19/17 at 08:59 Famotidine (Pepcid) 40 mg BID PO Last administered on 07/06/17 09:28; Start at 09:00; Stop 07/19/17 at 08:59 Haloperidol (Haldol) 5 mg STAT STAT IM Last administered on 06/18/17 22:02; Start 06/18/17 at 22:02; Stop 06/18/17 at 22:09; Status DC Haloperidol (Haldol) 10 mg Q8HP PRN PO ANXIETY/AGITATION Last administered on 10:19; Start 06/18/17 at 22:45; Stop 07/18/17 at 22:44 Haloperidol Decanoate (Haldol Decanoate) 100 mg Q14D IM Last administered on 13:33; Start 06/21/17 at 09:00; Stop 07/21/17 at 08:59 Home Med (Med Rec Complete!) ASDIRECTED XX ; Start 06/18/17 at 23:15; Stop at 23:15; Status DC Hydroxyzine HCl (Atarax) 50 mg Q4HP PRN PO AGITATION Last administered on 11:23; Start 06/18/17 at 23:45; Stop 06/23/17 at 10:03; Status DC Hydroxyzine HCl (Atarax) 100 mg Q4HP PRN PO AGITATION Last administered on 07/05 20:04; Start 06/23/17 at 10:00; Stop 07/23/17 at 09:59 Ibuprofen (Advil) 600 mg Q8HP PRN PO PAIN Last administered on 07/05/17 20:05 ; Start 06/23/17 at 14:00; Stop 07/23/17 at 13:59 Lacosamide (Vimpat) 50 mg BID PO Last administered on 07/06/17 09:27; Start at 21:00; Stop 07/06/17 at 20:59 Lamotrigine (LaMICtal) 50 mg BID PO Last administered on 06/23/17 08:29; Start 06/19/17 at 09:00; Stop 06/23/17 at 14:03; Status DC Lamotrigine (LaMICtal) 50 mg QAM PO ; Start 06/24/17 at 09:00; Stop 06/24/17 at 09 :00; Status DC Lorazepam (Ativan) 0.5 mg Q8H PO Last administered on 06/27/17 06:47; Start at 22:00; Stop 06/27/17 at 13:11; Status DC Lorazepam (Ativan) 1 mg QID PO Last administered on 06/20/17 16:10; Start at 09:00; Stop 06/20/17 at 20:30; Status DC Magnesium Hydroxide (Milk Of Magnesia) 30 ml DAILYPRN PRN PO CONSTIPATION; Start 06/18/17 at 23:45; Stop 07/18/17 at 23:44 Multivitamins (Theragram-M) 1 tab DAILY PO Last administered on 07/06/17 09:27 ; Start 06/19/17 at 09:00; Stop 07/19/17 at 08:59 Non-Formulary Medication ( See Comment Field Below ) SEE COMMENTS SECTION 1T @10 XX ; Start 06/24/17 at 10:00; Stop 06/24/17 at 10:00; Status DC Non-Formulary Medication ( See Comment Field Below ) SEE LABEL COMMENTS DAILY XX ; Start 06/22/17 at 09:00; Stop 06/23/17 at 09:09; Status DC Olanzapine (ZyPREXA ZYDIS) 5 mg Q6HP PRN PO ANXIETY/AGITATION Last administered on 07/05/17 08:45; Start 06/30/17 at 13:15; Stop 07/30/17 at 13:14 Olanzapine (ZyPREXA ZYDIS) 10 mg Q4HP PRN PO ANXIETY/AGITATION; Start 06/18 at 22:45; Stop 06/20/17 at 14:45; Status DC Olanzapine (ZyPREXA ZYDIS) 10 mg Q8H PO Last administered on 06/30/17 06:33 ; Start 06/20/17 at 14:00; Stop 06/30/17 at 12:11; Status DC Prednisone (Deltasone) 40 mg DAILY PO Last administered on 06/25/17 07:59; Start 06/23/17 at 09:00; Stop 06/25/17 at 12:00; Status DC Risperidone (RisperDAL) 0.5 mg BID PO Last administered on 06/30/17 08:26; Start 06/29/17 at 21:00; Stop 06/30/17 at 09:01; Status DC Risperidone (RisperDAL) 0.5 mg BID PO ; Start 06/30/17 at 21:00; Stop 06/30/17 at 21:00; Status DC Risperidone (RisperDAL) 1 mg BID PO ; Start 06/30/17 at 21:00; Stop 06/30/17 at 21 :00; Status DC Risperidone (RisperDAL) 1 mg QID PO Last administered on 07/06/17 13:32; Start 06/30/17 at 13:00; Stop 07/30/17 at 12:59 Risperidone (RisperDAL) 1 mg TID PO ; Start 06/29/17 at 09:00; Stop 06/29/17 at 11 :58; Status DC Sertraline HCl (Zoloft) 50 mg DAILY PO Last administered on 07/06/17 09:27; Start 07/05/17 at 09:00; Stop 08/04/17 at 08:59 Trazodone HCl (Desyrel) 50 mg QHS PO ; Start 06/18/17 at 21:00; Stop 06/19/17 at 00:08; Status DC Trazodone HCl (Desyrel) 50 mg QHS PO Last administered on 07/05/17 20:05; Start 06/19/17 at 21:00; Stop 07/19/17 at 20:59 Allergies Coded Allergies: Codeine (Verified Allergy, Intermediate, 05/29/17) Penicillins (Verified Allergy, Intermediate, 01/16/17) DANIEL LEUNG MD Jul 06, 2017 15:51
[2017-07-06] MEDS: OLANZapine ORAL DISINTEGRATING TAB 5MG PO PRN (16:31)
[2017-07-06 18:00] VITALS: BP 112/58
[2017-07-06] MEDS: ACETAMINOPHEN TAB 650MG DOSE (2X325MG) PO PRN (18:59)
[2017-07-06] MEDS: traZODone 50 MG TAB PO SCH (21:11)
[2017-07-06] MEDS: diphenhydrAMINE 50 MG CAP PO PRN (21:11)
[2017-07-06] MEDS: IBUPROFEN 600 MG TAB PO PRN (21:11)
[2017-07-06] MEDS: hydrOXYzine 50 MG TAB PO PRN (21:12)
[2017-07-07 06:49] VITALS: BP 150/81
[2017-07-07] MEDS: risperiDONE 1 MG TAB PO SCH ×4 (08:50→21:23)
[2017-07-07] MEDS: LACOSAMIDE 50 MG TAB (VIMPAT) PO SCH ×2 (08:50→21:23)
[2017-07-07] MEDS: FAMOTIDINE 20 MG TAB PO SCH ×2 (08:50→20:58)
[2017-07-07] MEDS: DOCUSATE SODIUM 100 MG CAP PO SCH ×2 (08:50→21:23)
[2017-07-07] MEDS: BENZTROPINE 1 MG TAB PO SCH (08:50)
[2017-07-07] MEDS: DIVALPROEX 500MG *ER* TAB PO SCH ×2 (08:50→21:24)
[2017-07-07] MEDS: MULTIVITAMINS/MINERALS THERAP 1 TAB PO SCH (08:50)
[2017-07-07] MEDS: SERTRALINE HCL 50 MG TAB PO SCH (08:50)
[2017-07-07] MEDS: clonazePAM 0.5 MG TAB PO SCH ×3 (08:50→21:23)
[2017-07-07] MEDS: IBUPROFEN 600 MG TAB PO PRN (14:45)
--- NOTE | 2017-07-07 17:04 | MHIPNPDOC ---
[facility] Progress Note Progress Note DATE OF SERVICE: 07/07/17 Interval History: Patient states he doesn't like Haldol, he says he likes Risperdal, is more effective controlling his paranoia. Then, he requests Seroquel. This card writer hand explained to him is not nicolas to load him with antipsychotics. Discussed trying to become entertained doing something that is good for his mind, his memory, like puzzles or writing a journal, so that he can remember his conversations and the vents of the day. Patient seemed to be positive about all of this and said he was going to try. VITAL SIGNS: See below. NEW TEST RESULTS: N/A CURRENT MEDICATIONS: See below. MENTAL STATUS EXAMINATION: Patient is a 36-year old male, dressed in personal clothes, poor eye contact. Speech: Soft spoken, slurred, irrational Language skills are fair Thought processes including: Irrational, incoherent, not goal directed Thought content: Anxious, focused on adding more antipsychotics to his usual meds because he continues to be very paranoid Abstract reasoning, and computation: patient has difficulty with computation due to TBI. Description of associations: Good Description of abnormal or psychotic thoughts: Reports paranoid thoughts, sometimes very strong which trigger anxiety. Denies SI/HI. Admits A/V hallucinations in the morning Judgment: Poor Insight: Poor Orientation: Oriented to place and person, partially to date and time Recent and remote memory: Poor Attention span and concentration: Poor. Language: Normal. Fund of knowledge: Limited due to TBI. Mood: Anxious Affect: Anxious DIAGNOSES: 1. Paranoid schizophrenia 2. 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 TBI by history MANAGEMENT PLAN: Patient will be transferred [place] [facility] [place]. We'll continue on the same medications. TIME SPENT: 20 minutes. Vital Signs Vital Signs Date Time Temp Pulse Resp B/P (MAP) Pulse Ox O2 Delivery O2 Flow Rate FiO2 07/07/17 06:49 97.9 87 18 150/81 (104) 07/05/17 06:51 Room Air Current Medications Current Medications Acetaminophen (Tylenol Tab) 650 mg Q6HP PRN PO HEADACHE or DISCOMFORT Last administered on 07/06/17t 18:59; Start 06/18/17 at 23:45; Stop 07/18/17 at 23:44 Al Hydrox/Mg Hydrox/Simethicone (Mylanta) 30 ml Q4HP PRN PO HEARTBURN/ INDIGESTION Last administered on 06/28/17 18:41; Start 06/18/17 at 23:45; Stop 07/18/17 at 23:44 Albuterol Sulfate (Proventil, Ventolin Hfa) 2 puff Q4HP PRN INH SHORTNESS OF BREATH; Start 06/19/17 at 09:45; Stop 07/19/17 at 09:44 Benztropine Mesylate (Cogentin) 1 mg DAILY PO Last administered on 07/07/17 08 :50; Start 06/19/17 at 09:00; Stop 07/19/17 at 08:59 Clonazepam (KlonoPIN) 0.5 mg TID PO Last administered on 07/07/17 15:23; Start 06/27/17 at 16:00; Stop 07/10/17 at 15:59 Diphenhydramine HCl (Benadryl) 50 mg Q6HP PRN PO ITCHING Last administered on 21:11; Start 06/23/17 at 18:15; Stop 07/23/17 at 18:14 Diphenhydramine HCl (Benadryl) 50 mg Q8HP PRN PO ANXIETY/AGITATION Last administered on 06/22/17 18:38; Start 06/18/17 at 22:45; Stop 06/23/17 at 18:09 ; Status DC Divalproex Sodium (Depakote Er) 500 mg BID PO Last administered on 07/07/17 08 :50; Start 06/19/17 at 09:00; Stop 07/19/17 at 08:59 Docusate Sodium (Colace) 100 mg BID PO Last administered on 07/07/17 08:50; Start 06/19/17 at 09:00; Stop 07/19/17 at 08:59 Famotidine (Pepcid) 40 mg BID PO Last administered on 07/07/17 08:50; Start at 09:00; Stop 07/19/17 at 08:59 Haloperidol (Haldol) 5 mg STAT STAT IM Last administered on 06/18/17 22:02; Start 06/18/17 at 22:02; Stop 06/18/17 at 22:09; Status DC Haloperidol (Haldol) 10 mg Q8HP PRN PO ANXIETY/AGITATION Last administered on 10:19; Start 06/18/17 at 22:45; Stop 07/18/17 at 22:44 Haloperidol Decanoate (Haldol Decanoate) 100 mg Q14D IM Last administered on 13:33; Start 06/21/17 at 09:00; Stop 07/21/17 at 08:59 Home Med (Med Rec Complete!) ASDIRECTED XX ; Start 06/18/17 at 23:15; Stop at 23:15; Status DC Hydroxyzine HCl (Atarax) 50 mg Q4HP PRN PO AGITATION Last administered on 11:23; Start 06/18/17 at 23:45; Stop 06/23/17 at 10:03; Status DC Hydroxyzine HCl (Atarax) 100 mg Q4HP PRN PO AGITATION Last administered on 07/06 21:12; Start 06/23/17 at 10:00; Stop 07/23/17 at 09:59 Ibuprofen (Advil) 600 mg Q8HP PRN PO PAIN Last administered on 07/07/17 14:45 ; Start 06/23/17 at 14:00; Stop 07/23/17 at 13:59 Lacosamide (Vimpat) 50 mg BID PO Last administered on 07/07/17 08:50; Start at 21:00; Stop 07/13/17 at 20:59 Lamotrigine (LaMICtal) 50 mg BID PO Last administered on 06/23/17 08:29; Start 06/19/17 at 09:00; Stop 06/23/17 at 14:03; Status DC Lamotrigine (LaMICtal) 50 mg QAM PO ; Start 06/24/17 at 09:00; Stop 06/24/17 at 09 :00; Status DC Lorazepam (Ativan) 0.5 mg Q8H PO Last administered on 06/27/17 06:47; Start at 22:00; Stop 06/27/17 at 13:11; Status DC Lorazepam (Ativan) 1 mg QID PO Last administered on 06/20/17 16:10; Start at 09:00; Stop 06/20/17 at 20:30; Status DC Magnesium Hydroxide (Milk Of Magnesia) 30 ml DAILYPRN PRN PO CONSTIPATION; Start 06/18/17 at 23:45; Stop 07/18/17 at 23:44 Multivitamins (Theragram-M) 1 tab DAILY PO Last administered on 07/07/17 08:50 ; Start 06/19/17 at 09:00; Stop 07/19/17 at 08:59 Non-Formulary Medication ( See Comment Field Below ) SEE COMMENTS SECTION 1T @10 XX ; Start 06/24/17 at 10:00; Stop 06/24/17 at 10:00; Status DC Non-Formulary Medication ( See Comment Field Below ) SEE LABEL COMMENTS DAILY XX ; Start 06/22/17 at 09:00; Stop 06/23/17 at 09:09; Status DC Olanzapine (ZyPREXA ZYDIS) 5 mg Q6HP PRN PO ANXIETY/AGITATION Last administered on 07/06/17 16:31; Start 06/30/17 at 13:15; Stop 07/30/17 at 13:14 Olanzapine (ZyPREXA ZYDIS) 10 mg Q4HP PRN PO ANXIETY/AGITATION; Start 06/18 at 22:45; Stop 06/20/17 at 14:45; Status DC Olanzapine (ZyPREXA ZYDIS) 10 mg Q8H PO Last administered on 06/30/17 06:33 ; Start 06/20/17 at 14:00; Stop 06/30/17 at 12:11; Status DC Prednisone (Deltasone) 40 mg DAILY PO Last administered on 06/25/17 07:59; Start 06/23/17 at 09:00; Stop 06/25/17 at 12:00; Status DC Risperidone (RisperDAL) 0.5 mg BID PO Last administered on 06/30/17 08:26; Start 06/29/17 at 21:00; Stop 06/30/17 at 09:01; Status DC Risperidone (RisperDAL) 0.5 mg BID PO ; Start 06/30/17 at 21:00; Stop 06/30/17 at 21:00; Status DC Risperidone (RisperDAL) 1 mg BID PO ; Start 06/30/17 at 21:00; Stop 06/30/17 at 21 :00; Status DC Risperidone (RisperDAL) 1 mg QID PO Last administered on 07/07/17 16:02; Start 06/30/17 at 13:00; Stop 07/30/17 at 12:59 Risperidone (RisperDAL) 1 mg TID PO ; Start 06/29/17 at 09:00; Stop 06/29/17 at 11 :58; Status DC Sertraline HCl (Zoloft) 50 mg DAILY PO Last administered on 07/07/17 08:50; Start 07/05/17 at 09:00; Stop 08/04/17 at 08:59 Trazodone HCl (Desyrel) 50 mg QHS PO ; Start 06/18/17 at 21:00; Stop 06/19/17 at 00:08; Status DC Trazodone HCl (Desyrel) 50 mg QHS PO Last administered on 07/06/17 21:11; Start 06/19/17 at 21:00; Stop 07/19/17 at 20:59 Allergies Coded Allergies: Codeine (Verified Allergy, Intermediate, 05/29/17) Penicillins (Verified Allergy, Intermediate, 01/16/17) DANIEL LEUNG MD Jul 07, 2017 17:04
[2017-07-07] MEDS: OLANZapine ORAL DISINTEGRATING TAB 5MG PO PRN (17:26)
[2017-07-07 18:00] VITALS: BP 135/83
[2017-07-07] MEDS: MAALOX 30 ML SUSP *UDC PO PRN (18:35)
[2017-07-07] MEDS: traZODone 50 MG TAB PO SCH (21:24)
[2017-07-08 07:08] VITALS: BP 93/51
[2017-07-08] MEDS: DOCUSATE SODIUM 100 MG CAP PO SCH ×2 (07:54→20:04)
[2017-07-08] MEDS: MULTIVITAMINS/MINERALS THERAP 1 TAB PO SCH (07:54)
[2017-07-08] MEDS: FAMOTIDINE 20 MG TAB PO SCH ×2 (07:54→20:02)
[2017-07-08] MEDS: DIVALPROEX 500MG *ER* TAB PO SCH ×2 (07:54→20:04)
[2017-07-08] MEDS: risperiDONE 1 MG TAB PO SCH ×4 (07:54→20:04)
[2017-07-08] MEDS: clonazePAM 0.5 MG TAB PO SCH ×3 (07:54→20:03)
[2017-07-08] MEDS: BENZTROPINE 1 MG TAB PO SCH (07:54)
[2017-07-08] MEDS: SERTRALINE HCL 50 MG TAB PO SCH (07:54)
[2017-07-08] MEDS: LACOSAMIDE 50 MG TAB (VIMPAT) PO SCH ×2 (07:54→20:03)
[2017-07-08 08:21] LABS: ANION GAP 7 MEQ/L (8-16); BLOOD UREA NITROGEN 9 MG/DL (7-18); CARBON DIOXIDE LEVEL 31 MEQ/L (21-32); CHLORIDE LEVEL 105 MEQ/L (98-107); CREATININE FOR GFR 0.54 MG/DL (0.70-1.30); GLOMERULAR FILTRATION RATE > 60.0 (>60); GLUCOSE, FASTING 75 MG/DL (70-105); POTASSIUM SERUM 4.3 MEQ/L (3.5-5.1); SODIUM LEVEL 143 MEQ/L (136-145)
[2017-07-08] MEDS: OLANZapine ORAL DISINTEGRATING TAB 5MG PO PRN ×2 (09:18→20:31)
[2017-07-08] MEDS: IBUPROFEN 600 MG TAB PO PRN ×2 (10:32→18:34)
[2017-07-08 18:00] VITALS: BP 126/66
[2017-07-08] MEDS: traZODone 50 MG TAB PO SCH (20:04)
[2017-07-08] MEDS: MAALOX 30 ML SUSP *UDC PO PRN (20:26)
[2017-07-09 07:00] VITALS: BP 126/70
[2017-07-09] MEDS: DOCUSATE SODIUM 100 MG CAP PO SCH ×2 (08:01→20:05)
[2017-07-09] MEDS: DIVALPROEX 500MG *ER* TAB PO SCH ×2 (08:01→20:05)
[2017-07-09] MEDS: MULTIVITAMINS/MINERALS THERAP 1 TAB PO SCH (08:01)
[2017-07-09] MEDS: risperiDONE 1 MG TAB PO SCH ×4 (08:01→20:05)
[2017-07-09] MEDS: BENZTROPINE 1 MG TAB PO SCH (08:01)
[2017-07-09] MEDS: LACOSAMIDE 50 MG TAB (VIMPAT) PO SCH ×2 (08:02→20:04)
[2017-07-09] MEDS: clonazePAM 0.5 MG TAB PO SCH ×3 (08:02→20:04)
[2017-07-09] MEDS: FAMOTIDINE 20 MG TAB PO SCH ×2 (08:02→20:04)
[2017-07-09] MEDS: SERTRALINE HCL 50 MG TAB PO SCH (08:02)
[2017-07-09] MEDS: IBUPROFEN 600 MG TAB PO PRN (09:31)
[2017-07-09] MEDS: OLANZapine ORAL DISINTEGRATING TAB 5MG PO PRN ×2 (09:32→17:06)
[2017-07-09 09:38] LABS: ANION GAP 8 MEQ/L (8-16); BLOOD UREA NITROGEN 9 MG/DL (7-18); CALCIUM LEVEL 8.7 MG/DL (8.5-10.1); CARBON DIOXIDE LEVEL 31 MEQ/L (21-32); CHLORIDE LEVEL 106 MEQ/L (98-107); CREATININE FOR GFR 0.58 MG/DL (0.70-1.30); GLOMERULAR FILTRATION RATE > 60.0 (>60); GLUCOSE, FASTING 90 MG/DL (70-105); POTASSIUM SERUM 4.5 MEQ/L (3.5-5.1); SODIUM LEVEL 145 MEQ/L (136-145)
[2017-07-09] MEDS: ACETAMINOPHEN TAB 650MG DOSE (2X325MG) PO PRN ×2 (10:36→18:46)
[2017-07-09] MEDS: MAALOX 30 ML SUSP *UDC PO PRN (15:49)
[2017-07-09 18:00] VITALS: BP 129/77
[2017-07-09] MEDS: traZODone 50 MG TAB PO SCH (20:05)
[2017-07-10 07:35] LABS: ANION GAP 4 MEQ/L (8-16); BLOOD UREA NITROGEN 13 MG/DL (7-18); CALCIUM LEVEL 8.8 MG/DL (8.5-10.1); CARBON DIOXIDE LEVEL 33 MEQ/L (21-32); CHLORIDE LEVEL 106 MEQ/L (98-107); CREATININE FOR GFR 0.61 MG/DL (0.70-1.30); GLOMERULAR FILTRATION RATE > 60.0 (>60); GLUCOSE, FASTING 79 MG/DL (70-105); POTASSIUM SERUM 4.3 MEQ/L (3.5-5.1); SODIUM LEVEL 143 MEQ/L (136-145)
[2017-07-10] MEDS: risperiDONE 1 MG TAB PO SCH (08:21)
[2017-07-10] MEDS: DIVALPROEX 500MG *ER* TAB PO SCH (08:21)
[2017-07-10] MEDS: MULTIVITAMINS/MINERALS THERAP 1 TAB PO SCH (08:21)
[2017-07-10] MEDS: LACOSAMIDE 50 MG TAB (VIMPAT) PO SCH (08:21)
[2017-07-10] MEDS: OLANZapine ORAL DISINTEGRATING TAB 5MG PO PRN (08:21)
[2017-07-10] MEDS: BENZTROPINE 1 MG TAB PO SCH (08:21)
[2017-07-10] MEDS: DOCUSATE SODIUM 100 MG CAP PO SCH (08:22)
[2017-07-10] MEDS: SERTRALINE HCL 50 MG TAB PO SCH (08:22)
[2017-07-10] MEDS: clonazePAM 0.5 MG TAB PO SCH (08:22)
[2017-07-10] MEDS: FAMOTIDINE 20 MG TAB PO SCH (08:22)
[2017-07-10] MEDS: IBUPROFEN 600 MG TAB PO PRN (09:16)
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
[2017-07-10] MEDS ORDERED: CLON0.5T PO (10:22)
[2017-07-10] MEDS ORDERED: TRAZO50TA PO (10:22)
[2017-07-10] MEDS ORDERED: HALO10TA2 PO (10:22)
[2017-07-10] MEDS ORDERED: OLAN5ZYD PO (10:22)
[2017-07-10] MEDS ORDERED: HYDRO50TAB PO (10:22)
[2017-07-10] MEDS ORDERED: SERT50TA PO (10:22)
[2017-07-10] MEDS ORDERED: IBUP1TAB6 PO (10:22)
[2017-07-10] MEDS ORDERED: VIMP50TA3 PO (10:22)
[2017-07-10] MEDS ORDERED: RISP1TAB42 PO (10:22)
[2017-07-10] MEDS ORDERED: HALO10AM IM (10:22)
[2017-07-10] MEDS ORDERED: DIPH50CA PO (10:22)
== END 2017-07-10 12:15 | DRG 750 ==
LOC: M ED 21:12 → M ED INP 22:34 → M PSY 06-19 00:02
PROVIDERS: ADMIT Psychiatry & Neurology Psychiatry; ATTEND Psychiatry & Neurology Psychiatry
DX: F20.0 Paranoid schizophrenia (principal); Z91.19 Patient's noncompliance with other medical treatment and regimen; D64.9 Anemia, unspecified; Z79.899 Other long term (current) drug therapy; Z88.0 Allergy status to penicillin; Z88.5 Allergy status to narcotic agent; K21.9 Gastro-esophageal reflux disease without esophagitis; J45.909 Unspecified asthma, uncomplicated; R21 Rash and other nonspecific skin eruption

== ENCOUNTER → 2017-09-18 | Outpatient (CLI) | payer MEDICAID ==
[~2017-09-18] MED LIST changes: +CLON0.5T PO; +HALO1TAB29 PO; +IBUP1TAB6 PO; +OLAN5ZYD PO; +RISP1TAB42 PO; +SERT50TA PO; +TRAZO50TA PO; +VIMP50TA3 PO; -traZODone 50 MG TAB PO SCH
[2017-09-18 15:35] LABS: EOS % 0.2 % (0.0-3.0); IMMATURE GRANULOCYTE % 0.4 % (0-0); LYMPH # 1.5 10^3/uL (1.5-4.5); LYMPH % 28.5 % (24.0-44.0); MEAN CORPUSCULAR HEMOGLOBIN 31.4 pg (27.0-33.0); MEAN CORPUSCULAR HGB CONC 34.1 g/dl (32.0-36.5); MONO # 0.5 10^3/uL (0.0-0.8); MONO % 9.2 % (0.0-5.0); NEUTROPHILS # 3.1 10^3/uL (1.8-7.7); NEUTROPHILS % 61.7 % (36.0-66.0); PLATELET COUNT, AUTOMATED 275 10^3/uL (150-450); RED CELL DISTRIBUTION WIDTH 13.2 % (11.5-14.5); WHITE BLOOD COUNT 5.1 10^3/uL (4.0-10.0)
== END ==
LOC: M WUC 10:01
PROVIDERS: ATTEND Psychiatry & Neurology Psychiatry
DX: F20.0 Paranoid schizophrenia (principal)

== ENCOUNTER → 2017-09-27 | Outpatient (CLI) | payer MEDICAID ==
--- NOTE | 2017-09-27 11:34 | REP ---
Chest PA and lateral: 09/27/2017. No comparison study. Clinical history: Chest pain. Findings: Two-view show the lung nash well inflated. There is no pleural effusion, lateral pleural thickening apical scarring or pneumothorax. No pneumomediastinum. Heart, mediastinal and hilar contours normal. Airway intact. No infiltrate, atelectasis or mass. The bony thorax shows no compression deformity. There is no free air to the diaphragm. Impression: 1. No acute cardiopulmonary change. Signed by Yang Lizarraga MD 09/27/2017 07:36 P
== END ==
LOC: M WUC 10:49
PROVIDERS: ATTEND Family Medicine
DX: R07.9 Chest pain, unspecified (principal)

== ENCOUNTER → 2017-09-27 | Outpatient (CLI) | payer MEDICAID ==
[2017-09-27 13:16] LABS: BASO % 0.2 % (0.0-1.0); EOS % 0.3 % (0.0-3.0); IMMATURE GRANULOCYTE % 0.2 % (0-0); LYMPH # 1.3 10^3/uL (1.5-4.5); LYMPH % 22.3 % (24.0-44.0); MEAN CORPUSCULAR HEMOGLOBIN 31.9 pg (27.0-33.0); MEAN CORPUSCULAR HGB CONC 34.3 g/dl (32.0-36.5); MONO # 0.5 10^3/uL (0.0-0.8); MONO % 8.6 % (0.0-5.0); NEUTROPHILS % 68.4 % (36.0-66.0); PLATELET COUNT, AUTOMATED 245 10^3/uL (150-450); RED CELL DISTRIBUTION WIDTH 13.5 % (11.5-14.5); WHITE BLOOD COUNT 5.8 10^3/uL (4.0-10.0)
[2017-09-27 13:42] LABS: ALBUMIN 4.2 GM/DL (3.2-5.2); ALBUMIN/GLOBULIN RATIO 1.56 (1.00-1.93); ALKALINE PHOSPHATASE 50 U/L (45-117); ALT/SGPT 37 U/L (12-78); ANION GAP 9 MEQ/L (8-16); AST/SGOT 12 U/L (7-37); BILIRUBIN,TOTAL 0.2 MG/DL (0.2-1.0); BLOOD UREA NITROGEN 10 MG/DL (7-18); CALCIUM LEVEL 9.2 MG/DL (8.5-10.1); CARBAMAZEPINE (TEGRETOL) LEVEL < 0.5 UG/ML (4.0-10.0); CARBON DIOXIDE LEVEL 28 MEQ/L (21-32); CHLORIDE LEVEL 100 MEQ/L (98-107); GLOMERULAR FILTRATION RATE > 60.0 (>60); GLUCOSE, FASTING 67 MG/DL (70-105); POTASSIUM SERUM 4.9 MEQ/L (3.5-5.1); SODIUM LEVEL 137 MEQ/L (136-145); TOTAL PROTEIN 6.9 GM/DL (6.4-8.2)
== END ==
LOC: M WUC 10:45
PROVIDERS: ATTEND Psychiatry & Neurology Neurology
DX: R56.9 Unspecified convulsions (principal)

== ENCOUNTER → 2017-10-09 | Outpatient (CLI) | payer MEDICAID ==
--- NOTE | 2017-10-09 13:55 | PFTRPT ---
Tech: Charles FRENCH RRT Age: 36 Sex: Male Race: Height: 65.00 Inches Weight: 135.00 Lbs BSA: 1.67 Diagnosis: SOB POST TEST COMMENTS: Poor patient effort. Several attempts made for a more forceful exhalation; however, the patient lacked good effort and cooperation. Full study not done due to lack of understanding and cooperation. The patient was given four puffs of albuterol for postbronchodilator. PULMONARY FUNCTION REPORT (PRE AND POST SPIROMETRY) ORDERING PROVIDER: Phil Arteaga MD DATE OF SERVICE: 10/09/17 SPIROMETRY: Pre and post bronchodilator study of excellent technical quality. Marked difficulty with the required maneuvers is noted. The forced vital capacity is normal. The FEV1 is in proportion. The obstructive index is, therefore, normal. FLOW VOLUME LOOP: The expiratory limb of the flow volume loop is reasonably normal. No significant bronchodilator response is identified. IMPRESSION: Normal study. MTDD
== END ==
LOC: M CARPUL 13:05
PROVIDERS: ATTEND Family Medicine
DX: R06.02 Shortness of breath (principal); F17.210 Nicotine dependence, cigarettes, uncomplicated

== ENCOUNTER → 2017-12-04 | Outpatient (CLI) | payer MEDICAID ==
[2017-12-04 19:25] LABS: EOS % 0.2 % (0.0-3.0); HEMATOCRIT 39.1 % (42.0-52.0); HEMOGLOBIN 13.5 g/dl (14.0-18.0); IMMATURE GRANULOCYTE % 0.2 % (0-3.0); LYMPH # 1.4 10^3/uL (1.5-4.5); LYMPH % 22.3 % (24.0-44.0); MEAN CORPUSCULAR HEMOGLOBIN 32.7 pg (27.0-33.0); MEAN CORPUSCULAR HGB CONC 34.5 g/dl (32.0-36.5); MEAN CORPUSCULAR VOLUME 94.7 fl (80.0-96.0); MONO # 0.5 10^3/uL (0.0-0.8); MONO % 7.6 % (0.0-5.0); NEUTROPHILS # 4.4 10^3/uL (1.8-7.7); NEUTROPHILS % 69.7 % (36.0-66.0); PLATELET COUNT, AUTOMATED 243 10^3/uL (150-450); RED BLOOD COUNT 4.13 10^6/uL (4.30-6.10); RED CELL DISTRIBUTION WIDTH 14.6 % (11.5-14.5); WHITE BLOOD COUNT 6.3 10^3/uL (4.0-10.0)
== END ==
LOC: M WUC 11:44
DX: F20.9 Schizophrenia, unspecified (principal)
CPT/HCPCS: 85025

== ENCOUNTER → 2017-12-11 | Outpatient (CLI) | payer MEDICAID ==
[2017-12-11 14:25] LABS: BASO % 0.2 % (0.0-1.0); EOS % 0.5 % (0.0-3.0); HEMATOCRIT 38.3 % (42.0-52.0); HEMOGLOBIN 13.5 g/dl (14.0-18.0); IMMATURE GRANULOCYTE % 0.2 % (0-3.0); LYMPH # 1.1 10^3/uL (1.5-4.5); LYMPH % 27.4 % (24.0-44.0); MEAN CORPUSCULAR HEMOGLOBIN 32.8 pg (27.0-33.0); MEAN CORPUSCULAR HGB CONC 35.2 g/dl (32.0-36.5); MONO # 0.4 10^3/uL (0.0-0.8); MONO % 9.5 % (0.0-5.0); NEUTROPHILS # 2.5 10^3/uL (1.8-7.7); NEUTROPHILS % 62.2 % (36.0-66.0); PLATELET COUNT, AUTOMATED 229 10^3/uL (150-450); RED BLOOD COUNT 4.12 10^6/uL (4.30-6.10); WHITE BLOOD COUNT 4.1 10^3/uL (4.0-10.0)
== END ==
LOC: M WUC 10:06
DX: F20.9 Schizophrenia, unspecified (principal)
CPT/HCPCS: 85025

== ENCOUNTER → 2017-12-18 | Outpatient (CLI) | payer MEDICAID ==
[2017-12-18 16:35] LABS: BASO % 0.3 % (0.0-1.0); EOS % 0.5 % (0.0-3.0); HEMATOCRIT 37.4 % (42.0-52.0); HEMOGLOBIN 12.7 g/dl (14.0-18.0); IMMATURE GRANULOCYTE % 0.3 % (0-3.0); LYMPH # 1.4 10^3/uL (1.5-4.5); LYMPH % 34.9 % (24.0-44.0); MEAN CORPUSCULAR HEMOGLOBIN 32.3 pg (27.0-33.0); MEAN CORPUSCULAR VOLUME 95.2 fl (80.0-96.0); MONO # 0.5 10^3/uL (0.0-0.8); MONO % 11.6 % (0.0-5.0); NEUTROPHILS # 2.1 10^3/uL (1.8-7.7); NEUTROPHILS % 52.4 % (36.0-66.0); PLATELET COUNT, AUTOMATED 223 10^3/uL (150-450); RED BLOOD COUNT 3.93 10^6/uL (4.30-6.10); RED CELL DISTRIBUTION WIDTH 14.1 % (11.5-14.5)
== END ==
LOC: M WUC 11:19
DX: F20.9 Schizophrenia, unspecified (principal)
CPT/HCPCS: 85025

== ENCOUNTER → 2017-12-25 | Outpatient (CLI) | payer MEDICAID ==
[2017-12-25 14:25] LABS: BASO % 0.2 % (0.0-1.0); EOS % 0.8 % (0.0-3.0); HEMATOCRIT 40.5 % (42.0-52.0); IMMATURE GRANULOCYTE % 0.2 % (0-3.0); LYMPH # 1.2 10^3/uL (1.5-4.5); LYMPH % 24.2 % (24.0-44.0); MEAN CORPUSCULAR HEMOGLOBIN 33.3 pg (27.0-33.0); MEAN CORPUSCULAR HGB CONC 34.6 g/dl (32.0-36.5); MEAN CORPUSCULAR VOLUME 96.2 fl (80.0-96.0); MONO # 0.5 10^3/uL (0.0-0.8); MONO % 9.8 % (0.0-5.0); NEUTROPHILS # 3.2 10^3/uL (1.8-7.7); NEUTROPHILS % 64.8 % (36.0-66.0); PLATELET COUNT, AUTOMATED 228 10^3/uL (150-450); RED BLOOD COUNT 4.21 10^6/uL (4.30-6.10); RED CELL DISTRIBUTION WIDTH 13.8 % (11.5-14.5)
== END ==
LOC: M WUC 10:24
DX: F20.9 Schizophrenia, unspecified (principal)
CPT/HCPCS: 85025

== ENCOUNTER → 2018-01-01 | Outpatient (CLI) | payer MEDICAID ==
[2018-01-01 19:58] LABS: EOS % 0.4 % (0.0-3.0); HEMATOCRIT 43.1 % (42.0-52.0); HEMOGLOBIN 15.1 g/dl (14.0-18.0); IMMATURE GRANULOCYTE % 0.4 % (0-3.0); LYMPH # 1.4 10^3/uL (1.5-4.5); LYMPH % 24.7 % (24.0-44.0); MEAN CORPUSCULAR HEMOGLOBIN 33.1 pg (27.0-33.0); MEAN CORPUSCULAR VOLUME 94.5 fl (80.0-96.0); MONO # 0.7 10^3/uL (0.0-0.8); MONO % 11.6 % (0.0-5.0); NEUTROPHILS # 3.6 10^3/uL (1.8-7.7); NEUTROPHILS % 62.9 % (36.0-66.0); PLATELET COUNT, AUTOMATED 255 10^3/uL (150-450); RED BLOOD COUNT 4.56 10^6/uL (4.30-6.10); RED CELL DISTRIBUTION WIDTH 13.3 % (11.5-14.5); WHITE BLOOD COUNT 5.7 10^3/uL (4.0-10.0)
== END ==
LOC: M WUC 16:13
DX: F20.9 Schizophrenia, unspecified (principal)
CPT/HCPCS: 85025

== ENCOUNTER → 2018-01-08 | Outpatient (CLI) | payer MEDICAID ==
[2018-01-08 17:26] LABS: BASO % 0.2 % (0.0-1.0); EOS % 0.6 % (0.0-3.0); HEMATOCRIT 36.4 % (42.0-52.0); HEMOGLOBIN 12.7 g/dl (14.0-18.0); IMMATURE GRANULOCYTE % 0.4 % (0-3.0); LYMPH # 1.2 10^3/uL (1.5-4.5); LYMPH % 25.4 % (24.0-44.0); MEAN CORPUSCULAR HEMOGLOBIN 33.2 pg (27.0-33.0); MEAN CORPUSCULAR HGB CONC 34.9 g/dl (32.0-36.5); MEAN CORPUSCULAR VOLUME 95.3 fl (80.0-96.0); MONO # 0.5 10^3/uL (0.0-0.8); NEUTROPHILS # 3.1 10^3/uL (1.8-7.7); NEUTROPHILS % 63.4 % (36.0-66.0); PLATELET COUNT, AUTOMATED 247 10^3/uL (150-450); RED BLOOD COUNT 3.82 10^6/uL (4.30-6.10); RED CELL DISTRIBUTION WIDTH 12.9 % (11.5-14.5); WHITE BLOOD COUNT 4.9 10^3/uL (4.0-10.0)
== END ==
LOC: M WUC 13:46
DX: F20.9 Schizophrenia, unspecified (principal)
CPT/HCPCS: 85025

== ENCOUNTER → 2018-01-15 | Outpatient (CLI) | payer MEDICAID ==
[2018-01-15 17:46] LABS: BASO % 0.2 % (0.0-1.0); EOS % 0.2 % (0.0-3.0); HEMATOCRIT 41.1 % (42.0-52.0); HEMOGLOBIN 13.9 g/dl (14.0-18.0); IMMATURE GRANULOCYTE % 0.3 % (0-3.0); LYMPH # 1.2 10^3/uL (1.5-4.5); LYMPH % 20.5 % (24.0-44.0); MEAN CORPUSCULAR HEMOGLOBIN 33.1 pg (27.0-33.0); MEAN CORPUSCULAR HGB CONC 33.8 g/dl (32.0-36.5); MEAN CORPUSCULAR VOLUME 97.9 fl (80.0-96.0); MONO # 0.3 10^3/uL (0.0-0.8); MONO % 4.3 % (0.0-5.0); NEUTROPHILS # 4.3 10^3/uL (1.8-7.7); NEUTROPHILS % 74.5 % (36.0-66.0); PLATELET COUNT, AUTOMATED 252 10^3/uL (150-450); RED CELL DISTRIBUTION WIDTH 13.2 % (11.5-14.5); WHITE BLOOD COUNT 5.8 10^3/uL (4.0-10.0)
== END ==
LOC: M WUC 10:58
DX: F20.9 Schizophrenia, unspecified (principal)
CPT/HCPCS: 85025

== ENCOUNTER → 2018-01-22 | Outpatient (CLI) | payer MEDICAID ==
[2018-01-22 18:46] LABS: BASO % 0.2 % (0.0-1.0); EOS % 0.5 % (0.0-3.0); HEMATOCRIT 38.5 % (42.0-52.0); IMMATURE GRANULOCYTE % 0.2 % (0-3.0); LYMPH # 1.3 10^3/uL (1.5-4.5); LYMPH % 20.6 % (24.0-44.0); MEAN CORPUSCULAR HEMOGLOBIN 32.3 pg (27.0-33.0); MEAN CORPUSCULAR HGB CONC 33.8 g/dl (32.0-36.5); MEAN CORPUSCULAR VOLUME 95.8 fl (80.0-96.0); MONO # 0.5 10^3/uL (0.0-0.8); MONO % 8.4 % (0.0-5.0); NEUTROPHILS # 4.4 10^3/uL (1.8-7.7); NEUTROPHILS % 70.1 % (36.0-66.0); PLATELET COUNT, AUTOMATED 260 10^3/uL (150-450); RED BLOOD COUNT 4.02 10^6/uL (4.30-6.10); RED CELL DISTRIBUTION WIDTH 12.7 % (11.5-14.5); WHITE BLOOD COUNT 6.2 10^3/uL (4.0-10.0)
== END ==
LOC: M WUC 11:40
DX: F20.9 Schizophrenia, unspecified (principal)
CPT/HCPCS: 85025

== ENCOUNTER → 2018-02-05 | Outpatient (CLI) | payer MEDICAID ==
[2018-02-05 16:24] LABS: BASO % 0.2 % (0.0-1.0); EOS % 0.7 % (0.0-3.0); HEMATOCRIT 37.3 % (42.0-52.0); IMMATURE GRANULOCYTE % 0.2 % (0-3.0); LYMPH # 1.3 10^3/uL (1.5-4.5); LYMPH % 30.4 % (24.0-44.0); MEAN CORPUSCULAR HEMOGLOBIN 33.1 pg (27.0-33.0); MEAN CORPUSCULAR HGB CONC 34.9 g/dl (32.0-36.5); MEAN CORPUSCULAR VOLUME 94.9 fl (80.0-96.0); MONO # 0.3 10^3/uL (0.0-0.8); MONO % 6.6 % (0.0-5.0); NEUTROPHILS # 2.6 10^3/uL (1.8-7.7); NEUTROPHILS % 61.9 % (36.0-66.0); PLATELET COUNT, AUTOMATED 260 10^3/uL (150-450); RED BLOOD COUNT 3.93 10^6/uL (4.30-6.10); RED CELL DISTRIBUTION WIDTH 12.3 % (11.5-14.5); WHITE BLOOD COUNT 4.3 10^3/uL (4.0-10.0)
[2018-02-08 00:08] LABS: CLOZAPINE 1 112 ng/mL (350-650); CLOZAPINE 2 62 ng/mL (Not Estab.); CLOZAPINE 3 174 ng/mL (.)
== END ==
LOC: M WUC 11:34
DX: F25.0 Schizoaffective disorder, bipolar type (principal); Z79.899 Other long term (current) drug therapy
CPT/HCPCS: 85025

== ENCOUNTER → 2018-02-12 | Outpatient (CLI) | payer MEDICAID ==
[2018-02-12 12:17] LABS: BASO % 0.2 % (0.0-1.0); EOS % 0.9 % (0.0-3.0); HEMATOCRIT 38.8 % (42.0-52.0); HEMOGLOBIN 13.2 g/dl (13.5-17.5); IMMATURE GRANULOCYTE % 0.2 % (0-3.0); LYMPH # 1.2 10^3/uL (1.5-4.5); LYMPH % 27.5 % (24.0-44.0); MEAN CORPUSCULAR VOLUME 94.2 fl (80.0-96.0); MONO # 0.5 10^3/uL (0.0-0.8); MONO % 10.4 % (0.0-5.0); NEUTROPHILS # 2.6 10^3/uL (1.8-7.7); NEUTROPHILS % 60.8 % (36.0-66.0); PLATELET COUNT, AUTOMATED 245 10^3/uL (150-450); RED BLOOD COUNT 4.12 10^6/uL (4.30-6.10); RED CELL DISTRIBUTION WIDTH 12.6 % (11.5-14.5); WHITE BLOOD COUNT 4.3 10^3/uL (4.0-10.0)
== END ==
LOC: M WUC 10:37
DX: F20.9 Schizophrenia, unspecified (principal)
CPT/HCPCS: 85025

== ENCOUNTER → 2018-02-19 | Outpatient (CLI) | payer MEDICAID ==
[2018-02-19 16:51] LABS: BASO % 0.2 % (0.0-1.0); EOS % 0.3 % (0.0-3.0); HEMATOCRIT 36.2 % (42.0-52.0); HEMOGLOBIN 12.6 g/dl (13.5-17.5); IMMATURE GRANULOCYTE % 0.3 % (0-3.0); LYMPH # 1.5 10^3/uL (1.5-4.5); LYMPH % 24.4 % (24.0-44.0); MEAN CORPUSCULAR HEMOGLOBIN 32.4 pg (27.0-33.0); MEAN CORPUSCULAR HGB CONC 34.8 g/dl (32.0-36.5); MEAN CORPUSCULAR VOLUME 93.1 fl (80.0-96.0); MONO # 0.5 10^3/uL (0.0-0.8); MONO % 7.8 % (0.0-5.0); NEUTROPHILS # 4.2 10^3/uL (1.8-7.7); PLATELET COUNT, AUTOMATED 263 10^3/uL (150-450); RED BLOOD COUNT 3.89 10^6/uL (4.30-6.10); RED CELL DISTRIBUTION WIDTH 12.5 % (11.5-14.5); WHITE BLOOD COUNT 6.3 10^3/uL (4.0-10.0)
== END ==
LOC: M WUC 13:46
DX: F20.9 Schizophrenia, unspecified (principal)
CPT/HCPCS: 85025

== ENCOUNTER → 2018-02-26 | Outpatient (CLI) | payer MEDICAID ==
[2018-02-26 16:32] LABS: EOS % 0.3 % (0.0-3.0); HEMATOCRIT 39.1 % (42.0-52.0); HEMOGLOBIN 13.3 g/dl (13.5-17.5); IMMATURE GRANULOCYTE % 0.6 % (0-3.0); LYMPH % 31.6 % (24.0-44.0); MEAN CORPUSCULAR HEMOGLOBIN 32.1 pg (27.0-33.0); MEAN CORPUSCULAR VOLUME 94.4 fl (80.0-96.0); MONO # 0.4 10^3/uL (0.0-0.8); MONO % 11.6 % (0.0-5.0); NEUTROPHILS # 1.7 10^3/uL (1.8-7.7); NEUTROPHILS % 55.9 % (36.0-66.0); PLATELET COUNT, AUTOMATED 263 10^3/uL (150-450); RED BLOOD COUNT 4.14 10^6/uL (4.30-6.10); RED CELL DISTRIBUTION WIDTH 12.6 % (11.5-14.5); WHITE BLOOD COUNT 3.1 10^3/uL (4.0-10.0)
== END ==
LOC: M WUC 10:39
DX: F20.9 Schizophrenia, unspecified (principal)
CPT/HCPCS: 85025

== ENCOUNTER → 2018-03-05 | Outpatient (CLI) | payer MEDICAID ==
[2018-03-05 17:51] LABS: BASO % 0.2 % (0.0-1.0); EOS % 0.4 % (0.0-3.0); HEMATOCRIT 36.4 % (42.0-52.0); HEMOGLOBIN 12.3 g/dl (13.5-17.5); IMMATURE GRANULOCYTE % 0.6 % (0-3.0); LYMPH # 0.9 10^3/uL (1.5-4.5); LYMPH % 17.8 % (24.0-44.0); MEAN CORPUSCULAR HEMOGLOBIN 32.5 pg (27.0-33.0); MEAN CORPUSCULAR HGB CONC 33.8 g/dl (32.0-36.5); MEAN CORPUSCULAR VOLUME 96.3 fl (80.0-96.0); MONO # 0.5 10^3/uL (0.0-0.8); MONO % 9.8 % (0.0-5.0); NEUTROPHILS # 3.7 10^3/uL (1.8-7.7); NEUTROPHILS % 71.2 % (36.0-66.0); PLATELET COUNT, AUTOMATED 264 10^3/uL (150-450); RED BLOOD COUNT 3.78 10^6/uL (4.30-6.10); RED CELL DISTRIBUTION WIDTH 13.3 % (11.5-14.5); WHITE BLOOD COUNT 5.1 10^3/uL (4.0-10.0)
== END ==
LOC: M WUC 11:12
DX: F20.9 Schizophrenia, unspecified (principal)
CPT/HCPCS: 85025

== ENCOUNTER → 2018-03-12 | Outpatient (CLI) | payer MEDICAID ==
[2018-03-12 17:10] LABS: BASO % 0.2 % (0.0-1.0); EOS % 0.6 % (0.0-3.0); HEMOGLOBIN 12.3 g/dl (13.5-17.5); IMMATURE GRANULOCYTE % 0.6 % (0-3.0); LYMPH # 1.4 10^3/uL (1.5-4.5); LYMPH % 28.9 % (24.0-44.0); MEAN CORPUSCULAR HEMOGLOBIN 32.3 pg (27.0-33.0); MEAN CORPUSCULAR HGB CONC 34.2 g/dl (32.0-36.5); MEAN CORPUSCULAR VOLUME 94.5 fl (80.0-96.0); MONO # 0.5 10^3/uL (0.0-0.8); MONO % 9.6 % (0.0-5.0); NEUTROPHILS # 2.9 10^3/uL (1.8-7.7); NEUTROPHILS % 60.1 % (36.0-66.0); PLATELET COUNT, AUTOMATED 255 10^3/uL (150-450); RED BLOOD COUNT 3.81 10^6/uL (4.30-6.10); WHITE BLOOD COUNT 4.8 10^3/uL (4.0-10.0)
== END ==
LOC: M WUC 13:24
DX: F20.9 Schizophrenia, unspecified (principal)
CPT/HCPCS: 85025

== ENCOUNTER → 2018-03-14 | Outpatient (CLI) | payer MEDICAID ==
[2018-03-14 12:56] LABS: ALBUMIN 4.3 GM/DL (3.2-5.2); ALBUMIN/GLOBULIN RATIO 1.43 (1.00-1.93); ALKALINE PHOSPHATASE 48 U/L (45-117); ALT/SGPT 33 U/L (12-78); AST/SGOT 11 U/L (7-37); BILIRUBIN,DIRECT 0.1 MG/DL (0.0-0.2); BILIRUBIN,TOTAL 0.3 MG/DL (0.2-1.0); TOTAL PROTEIN 7.3 GM/DL (6.4-8.2); VALPROIC ACID (DEPAKOTE) 112.8 UG/ML (50.0-100.0)
[2018-03-17 00:08] LABS: CLOZAPINE 1 195 ng/mL (350-650); CLOZAPINE 2 55 ng/mL (Not Estab.); CLOZAPINE 3 250 ng/mL (.)
== END ==
LOC: M WUC 09:16
DX: F25.0 Schizoaffective disorder, bipolar type (principal)
CPT/HCPCS: 80164

== ENCOUNTER → 2018-03-21 | Outpatient (CLI) | payer MEDICAID ==
[2018-03-21 22:36] LABS: BASO % 0.2 % (0.0-1.0); EOS # 0.1 10^3/uL (0.0-0.50); EOS % 1.8 % (0.0-3.0); HEMATOCRIT 34.6 % (42.0-52.0); HEMOGLOBIN 11.6 g/dl (13.5-17.5); IMMATURE GRANULOCYTE % 0.2 % (0-3.0); LYMPH # 1.1 10^3/uL (1.5-4.5); LYMPH % 23.4 % (24.0-44.0); MEAN CORPUSCULAR HEMOGLOBIN 32.4 pg (27.0-33.0); MEAN CORPUSCULAR HGB CONC 33.5 g/dl (32.0-36.5); MEAN CORPUSCULAR VOLUME 96.6 fl (80.0-96.0); MONO # 0.5 10^3/uL (0.0-0.8); MONO % 10.7 % (0.0-5.0); NEUTROPHILS # 2.9 10^3/uL (1.8-7.7); NEUTROPHILS % 63.7 % (36.0-66.0); PLATELET COUNT, AUTOMATED 290 10^3/uL (150-450); RED BLOOD COUNT 3.58 10^6/uL (4.30-6.10); RED CELL DISTRIBUTION WIDTH 13.2 % (11.5-14.5); WHITE BLOOD COUNT 4.5 10^3/uL (4.0-10.0)
== END ==
LOC: M WUC 12:24
DX: F20.9 Schizophrenia, unspecified (principal)
CPT/HCPCS: 85025

== ENCOUNTER → 2018-03-26 | Outpatient (CLI) | payer MEDICAID ==
[2018-03-26 20:31] LABS: BASO % 0.2 % (0.0-1.0); EOS % 0.8 % (0.0-3.0); HEMATOCRIT 38.5 % (42.0-52.0); IMMATURE GRANULOCYTE % 0.2 % (0-3.0); LYMPH # 1.9 10^3/uL (1.5-4.5); LYMPH % 38.6 % (24.0-44.0); MEAN CORPUSCULAR HEMOGLOBIN 32.7 pg (27.0-33.0); MEAN CORPUSCULAR HGB CONC 33.8 g/dl (32.0-36.5); MEAN CORPUSCULAR VOLUME 96.7 fl (80.0-96.0); MONO # 0.5 10^3/uL (0.0-0.8); MONO % 10.6 % (0.0-5.0); NEUTROPHILS # 2.4 10^3/uL (1.8-7.7); NEUTROPHILS % 49.6 % (36.0-66.0); PLATELET COUNT, AUTOMATED 350 10^3/uL (150-450); RED BLOOD COUNT 3.98 10^6/uL (4.30-6.10); RED CELL DISTRIBUTION WIDTH 13.2 % (11.5-14.5); WHITE BLOOD COUNT 4.9 10^3/uL (4.0-10.0)
== END ==
LOC: M WUC 17:38
DX: F20.9 Schizophrenia, unspecified (principal)
CPT/HCPCS: 85025

== ENCOUNTER → 2018-04-02 | Outpatient (CLI) | payer MEDICAID ==
[2018-04-02 11:30] LABS: EOS % 0.2 % (0.0-3.0); HEMATOCRIT 39.8 % (42.0-52.0); HEMOGLOBIN 13.7 g/dl (13.5-17.5); IMMATURE GRANULOCYTE % 0.2 % (0-3.0); LYMPH # 1.1 10^3/uL (1.5-4.5); LYMPH % 22.9 % (24.0-44.0); MEAN CORPUSCULAR HEMOGLOBIN 32.9 pg (27.0-33.0); MEAN CORPUSCULAR HGB CONC 34.4 g/dl (32.0-36.5); MEAN CORPUSCULAR VOLUME 95.4 fl (80.0-96.0); MONO # 0.4 10^3/uL (0.0-0.8); NEUTROPHILS # 3.1 10^3/uL (1.8-7.7); NEUTROPHILS % 67.7 % (36.0-66.0); PLATELET COUNT, AUTOMATED 279 10^3/uL (150-450); RED BLOOD COUNT 4.17 10^6/uL (4.30-6.10); RED CELL DISTRIBUTION WIDTH 13.2 % (11.5-14.5); WHITE BLOOD COUNT 4.6 10^3/uL (4.0-10.0)
== END ==
LOC: M WUC 10:24
DX: Z51.81 Encounter for therapeutic drug level monitoring (principal); Z79.899 Other long term (current) drug therapy; F20.9 Schizophrenia, unspecified
CPT/HCPCS: 85025

== ENCOUNTER → 2018-04-09 | Outpatient (CLI) | payer MEDICAID ==
[2018-04-09 16:59] LABS: BASO % 0.5 % (0.0-1.0); EOS % 0.8 % (0.0-3.0); HEMATOCRIT 39.1 % (42.0-52.0); HEMOGLOBIN 13.4 g/dl (13.5-17.5); IMMATURE GRANULOCYTE % 1.6 % (0-3.0); LYMPH # 1.1 10^3/uL (1.5-4.5); LYMPH % 28.7 % (24.0-44.0); MEAN CORPUSCULAR HEMOGLOBIN 32.6 pg (27.0-33.0); MEAN CORPUSCULAR HGB CONC 34.3 g/dl (32.0-36.5); MEAN CORPUSCULAR VOLUME 95.1 fl (80.0-96.0); MONO # 0.4 10^3/uL (0.0-0.8); MONO % 11.2 % (0.0-5.0); NEUTROPHILS # 2.2 10^3/uL (1.8-7.7); NEUTROPHILS % 57.2 % (36.0-66.0); PLATELET COUNT, AUTOMATED 269 10^3/uL (150-450); RED BLOOD COUNT 4.11 10^6/uL (4.30-6.10); RED CELL DISTRIBUTION WIDTH 12.9 % (11.5-14.5); WHITE BLOOD COUNT 3.8 10^3/uL (4.0-10.0)
== END ==
LOC: M WUC 11:09
DX: F20.9 Schizophrenia, unspecified (principal)
CPT/HCPCS: 85025

== ENCOUNTER → 2018-04-16 | Outpatient (CLI) | payer MEDICAID ==
[2018-04-16 16:35] LABS: BASO % 0.2 % (0.0-1.0); EOS % 0.7 % (0.0-3.0); HEMATOCRIT 36.7 % (42.0-52.0); HEMOGLOBIN 12.9 g/dl (13.5-17.5); IMMATURE GRANULOCYTE % 0.2 % (0-3.0); LYMPH # 1.1 10^3/uL (1.5-4.5); LYMPH % 24.2 % (24.0-44.0); MEAN CORPUSCULAR HEMOGLOBIN 32.7 pg (27.0-33.0); MEAN CORPUSCULAR HGB CONC 35.1 g/dl (32.0-36.5); MEAN CORPUSCULAR VOLUME 92.9 fl (80.0-96.0); MONO # 0.4 10^3/uL (0.0-0.8); MONO % 7.8 % (0.0-5.0); NEUTROPHILS # 3.1 10^3/uL (1.8-7.7); NEUTROPHILS % 66.9 % (36.0-66.0); PLATELET COUNT, AUTOMATED 229 10^3/uL (150-450); RED BLOOD COUNT 3.95 10^6/uL (4.30-6.10); RED CELL DISTRIBUTION WIDTH 12.6 % (11.5-14.5); WHITE BLOOD COUNT 4.6 10^3/uL (4.0-10.0)
== END ==
LOC: M WUC 14:22
DX: F20.9 Schizophrenia, unspecified (principal)
CPT/HCPCS: 85025

== ENCOUNTER → 2018-04-24 | Outpatient (CLI) | payer MEDICAID ==
[2018-04-24 12:10] LABS: BASO % 0.2 % (0.0-1.0); EOS % 0.5 % (0.0-3.0); HEMATOCRIT 37.4 % (42.0-52.0); HEMOGLOBIN 12.9 g/dl (13.5-17.5); IMMATURE GRANULOCYTE % 0.9 % (0-3.0); LYMPH # 1.2 10^3/uL (1.5-4.5); LYMPH % 27.3 % (24.0-44.0); MEAN CORPUSCULAR HEMOGLOBIN 32.7 pg (27.0-33.0); MEAN CORPUSCULAR HGB CONC 34.5 g/dl (32.0-36.5); MEAN CORPUSCULAR VOLUME 94.9 fl (80.0-96.0); MONO # 0.5 10^3/uL (0.0-0.8); MONO % 10.4 % (0.0-5.0); NEUTROPHILS # 2.7 10^3/uL (1.8-7.7); NEUTROPHILS % 60.7 % (36.0-66.0); PLATELET COUNT, AUTOMATED 246 10^3/uL (150-450); RED BLOOD COUNT 3.94 10^6/uL (4.30-6.10); RED CELL DISTRIBUTION WIDTH 12.7 % (11.5-14.5); WHITE BLOOD COUNT 4.4 10^3/uL (4.0-10.0)
== END ==
LOC: M WUC 09:41
DX: F20.9 Schizophrenia, unspecified (principal)
CPT/HCPCS: 85025

== ENCOUNTER → 2018-04-30 | Outpatient (CLI) | payer MEDICAID ==
[2018-04-30 17:58] LABS: BASO % 0.4 % (0.0-1.0); EOS % 0.4 % (0.0-3.0); HEMATOCRIT 37.6 % (42.0-52.0); HEMOGLOBIN 12.8 g/dl (13.5-17.5); IMMATURE GRANULOCYTE % 0.2 % (0-3.0); LYMPH % 20.2 % (24.0-44.0); MEAN CORPUSCULAR HEMOGLOBIN 32.4 pg (27.0-33.0); MEAN CORPUSCULAR VOLUME 95.2 fl (80.0-96.0); MONO # 0.7 10^3/uL (0.0-0.8); MONO % 13.2 % (0.0-5.0); NEUTROPHILS # 3.2 10^3/uL (1.8-7.7); NEUTROPHILS % 65.6 % (36.0-66.0); PLATELET COUNT, AUTOMATED 243 10^3/uL (150-450); RED BLOOD COUNT 3.95 10^6/uL (4.30-6.10); RED CELL DISTRIBUTION WIDTH 12.7 % (11.5-14.5); WHITE BLOOD COUNT 4.9 10^3/uL (4.0-10.0)
== END ==
LOC: M WUC 12:44
DX: F20.9 Schizophrenia, unspecified (principal)
CPT/HCPCS: 85025

== ENCOUNTER → 2018-05-07 | Outpatient (CLI) | payer MEDICAID ==
[2018-05-07 16:47] LABS: ALBUMIN/GLOBULIN RATIO 1.33 (1.00-1.93); ALKALINE PHOSPHATASE 51 U/L (45-117); ALT/SGPT 25 U/L (12-78); AST/SGOT 11 U/L (7-37); BILIRUBIN,DIRECT 0.1 MG/DL (0.0-0.2); BILIRUBIN,TOTAL 0.4 MG/DL (0.2-1.0); VALPROIC ACID (DEPAKOTE) 61.6 UG/ML (50.0-100.0)
[2018-05-07 17:31] LABS: BASO % 0.2 % (0.0-1.0); EOS % 0.6 % (0.0-3.0); HEMATOCRIT 38.9 % (42.0-52.0); HEMOGLOBIN 13.5 g/dl (13.5-17.5); IMMATURE GRANULOCYTE % 0.4 % (0-3.0); LYMPH # 1.4 10^3/uL (1.5-4.5); LYMPH % 30.1 % (24.0-44.0); MEAN CORPUSCULAR HEMOGLOBIN 32.8 pg (27.0-33.0); MEAN CORPUSCULAR HGB CONC 34.7 g/dl (32.0-36.5); MEAN CORPUSCULAR VOLUME 94.4 fl (80.0-96.0); MONO # 0.4 10^3/uL (0.0-0.8); MONO % 8.3 % (0.0-5.0); NEUTROPHILS # 2.8 10^3/uL (1.8-7.7); NEUTROPHILS % 60.4 % (36.0-66.0); PLATELET COUNT, AUTOMATED 243 10^3/uL (150-450); RED BLOOD COUNT 4.12 10^6/uL (4.30-6.10); RED CELL DISTRIBUTION WIDTH 12.5 % (11.5-14.5); WHITE BLOOD COUNT 4.7 10^3/uL (4.0-10.0)
[2018-05-10 08:57] LABS: CLOZAPINE 1 109 ng/mL (350-650); CLOZAPINE 2 43 ng/mL (Not Estab.); CLOZAPINE 3 152 ng/mL (.)
== END ==
LOC: M WUC 13:40
DX: F25.0 Schizoaffective disorder, bipolar type (principal)
CPT/HCPCS: 80164

== ENCOUNTER → 2018-05-14 | Outpatient (CLI) | payer MEDICAID ==
[2018-05-14 14:36] LABS: EOS % 0.4 % (0.0-3.0); HEMOGLOBIN 12.5 g/dl (13.5-17.5); IMMATURE GRANULOCYTE % 0.3 % (0-3.0); LYMPH # 1.6 10^3/uL (1.5-4.5); LYMPH % 22.5 % (24.0-44.0); MEAN CORPUSCULAR HEMOGLOBIN 32.5 pg (27.0-33.0); MEAN CORPUSCULAR HGB CONC 33.8 g/dl (32.0-36.5); MEAN CORPUSCULAR VOLUME 96.1 fl (80.0-96.0); MONO # 0.4 10^3/uL (0.0-0.8); MONO % 5.8 % (0.0-5.0); NEUTROPHILS # 4.9 10^3/uL (1.8-7.7); PLATELET COUNT, AUTOMATED 248 10^3/uL (150-450); RED BLOOD COUNT 3.85 10^6/uL (4.30-6.10); RED CELL DISTRIBUTION WIDTH 12.6 % (11.5-14.5); WHITE BLOOD COUNT 6.9 10^3/uL (4.0-10.0)
== END ==
LOC: M WUC 12:26
DX: F20.9 Schizophrenia, unspecified (principal)
CPT/HCPCS: 85025

== ENCOUNTER → 2018-05-21 | Outpatient (CLI) | payer MEDICAID ==
[2018-05-21 12:20] LABS: EOS % 1.1 % (0.0-3.0); HEMATOCRIT 39.5 % (42.0-52.0); HEMOGLOBIN 13.7 g/dl (13.5-17.5); IMMATURE GRANULOCYTE % 0.3 % (0-3.0); LYMPH # 1.5 10^3/uL (1.5-4.5); LYMPH % 39.4 % (24.0-44.0); MEAN CORPUSCULAR HEMOGLOBIN 32.2 pg (27.0-33.0); MEAN CORPUSCULAR HGB CONC 34.7 g/dl (32.0-36.5); MEAN CORPUSCULAR VOLUME 92.9 fl (80.0-96.0); MONO # 0.4 10^3/uL (0.0-0.8); MONO % 10.6 % (0.0-5.0); NEUTROPHILS # 1.8 10^3/uL (1.8-7.7); NEUTROPHILS % 48.6 % (36.0-66.0); PLATELET COUNT, AUTOMATED 245 10^3/uL (150-450); RED BLOOD COUNT 4.25 10^6/uL (4.30-6.10); RED CELL DISTRIBUTION WIDTH 12.5 % (11.5-14.5); WHITE BLOOD COUNT 3.8 10^3/uL (4.0-10.0)
== END ==
LOC: M WUC 09:05
DX: F20.9 Schizophrenia, unspecified (principal); Z79.899 Other long term (current) drug therapy
CPT/HCPCS: 85025

== ENCOUNTER → 2018-05-28 | Outpatient (CLI) | payer MEDICAID ==
[2018-05-28 17:08] LABS: EOS % 0.7 % (0.0-3.0); HEMATOCRIT 38.7 % (42.0-52.0); HEMOGLOBIN 13.5 g/dl (13.5-17.5); IMMATURE GRANULOCYTE % 0.3 % (0-3.0); LYMPH # 1.3 10^3/uL (1.5-4.5); LYMPH % 20.5 % (24.0-44.0); MEAN CORPUSCULAR HEMOGLOBIN 32.4 pg (27.0-33.0); MEAN CORPUSCULAR HGB CONC 34.9 g/dl (32.0-36.5); MEAN CORPUSCULAR VOLUME 92.8 fl (80.0-96.0); MONO # 0.5 10^3/uL (0.0-0.8); MONO % 8.5 % (0.0-5.0); NEUTROPHILS # 4.3 10^3/uL (1.8-7.7); PLATELET COUNT, AUTOMATED 264 10^3/uL (150-450); RED BLOOD COUNT 4.17 10^6/uL (4.30-6.10); RED CELL DISTRIBUTION WIDTH 12.6 % (11.5-14.5); WHITE BLOOD COUNT 6.2 10^3/uL (4.0-10.0)
== END ==
LOC: M WUC 11:26
DX: F20.9 Schizophrenia, unspecified (principal)
CPT/HCPCS: 85025

== ENCOUNTER → 2018-06-04 | Outpatient (CLI) | payer MEDICAID ==
[2018-06-04 12:18] LABS: BASO % 0.2 % (0.0-1.0); EOS % 0.6 % (0.0-3.0); HEMATOCRIT 40.7 % (42.0-52.0); HEMOGLOBIN 14.1 g/dl (13.5-17.5); IMMATURE GRANULOCYTE % 0.4 % (0-3.0); LYMPH # 1.9 10^3/uL (1.5-4.5); LYMPH % 34.3 % (24.0-44.0); MEAN CORPUSCULAR HEMOGLOBIN 32.4 pg (27.0-33.0); MEAN CORPUSCULAR HGB CONC 34.6 g/dl (32.0-36.5); MEAN CORPUSCULAR VOLUME 93.6 fl (80.0-96.0); MONO # 0.4 10^3/uL (0.0-0.8); MONO % 7.9 % (0.0-5.0); NEUTROPHILS # 3.1 10^3/uL (1.8-7.7); NEUTROPHILS % 56.6 % (36.0-66.0); PLATELET COUNT, AUTOMATED 258 10^3/uL (150-450); RED BLOOD COUNT 4.35 10^6/uL (4.30-6.10); RED CELL DISTRIBUTION WIDTH 13.1 % (11.5-14.5); WHITE BLOOD COUNT 5.4 10^3/uL (4.0-10.0)
== END ==
LOC: M WUC 09:50
DX: F20.9 Schizophrenia, unspecified (principal)
CPT/HCPCS: 85025

== ENCOUNTER → 2018-06-26 | Outpatient (CLI) | payer MEDICAID ==
[2018-06-26 09:42] LABS: BASO % 0.1 % (0.0-1.0); EOS # 0.1 10^3/uL (0.0-0.50); EOS % 0.8 % (0.0-3.0); HEMATOCRIT 41.8 % (42.0-52.0); IMMATURE GRANULOCYTE % 0.1 % (0-3.0); LYMPH # 1.5 10^3/uL (1.5-4.5); LYMPH % 19.6 % (24.0-44.0); MEAN CORPUSCULAR HEMOGLOBIN 31.7 pg (27.0-33.0); MEAN CORPUSCULAR HGB CONC 33.5 g/dl (32.0-36.5); MEAN CORPUSCULAR VOLUME 94.8 fl (80.0-96.0); MONO # 0.5 10^3/uL (0.0-0.8); MONO % 6.5 % (0.0-5.0); NEUTROPHILS # 5.6 10^3/uL (1.8-7.7); NEUTROPHILS % 72.9 % (36.0-66.0); PLATELET COUNT, AUTOMATED 278 10^3/uL (150-450); RED BLOOD COUNT 4.41 10^6/uL (4.30-6.10); RED CELL DISTRIBUTION WIDTH 13.5 % (11.5-14.5); WHITE BLOOD COUNT 7.7 10^3/uL (4.0-10.0)
== END ==
LOC: M WUC 08:20
DX: F20.9 Schizophrenia, unspecified (principal)
CPT/HCPCS: 85025

== ENCOUNTER → 2018-07-09 | Outpatient (CLI) | payer MEDICAID ==
[2018-07-09 13:09] LABS: BASO % 0.2 % (0.0-1.0); EOS # 0.1 10^3/uL (0.0-0.50); HEMOGLOBIN 13.1 g/dl (13.5-17.5); IMMATURE GRANULOCYTE % 0.2 % (0-3.0); LYMPH # 1.4 10^3/uL (1.5-4.5); LYMPH % 26.7 % (24.0-44.0); MEAN CORPUSCULAR HEMOGLOBIN 32.2 pg (27.0-33.0); MEAN CORPUSCULAR HGB CONC 33.6 g/dl (32.0-36.5); MEAN CORPUSCULAR VOLUME 95.8 fl (80.0-96.0); MONO # 0.4 10^3/uL (0.0-0.8); MONO % 7.1 % (0.0-5.0); NEUTROPHILS # 3.3 10^3/uL (1.8-7.7); NEUTROPHILS % 64.8 % (36.0-66.0); PLATELET COUNT, AUTOMATED 247 10^3/uL (150-450); RED BLOOD COUNT 4.07 10^6/uL (4.30-6.10); RED CELL DISTRIBUTION WIDTH 13.6 % (11.5-14.5); WHITE BLOOD COUNT 5.1 10^3/uL (4.0-10.0)
== END ==
LOC: M WUC 08:36
DX: F25.0 Schizoaffective disorder, bipolar type (principal); Z51.81 Encounter for therapeutic drug level monitoring
CPT/HCPCS: 85025

== ENCOUNTER → 2018-07-26 | Outpatient (CLI) | payer MEDICAID ==
[2018-07-26 08:48] LABS: EOS # 0.1 10^3/uL (0.0-0.50); EOS % 1.5 % (0.0-3.0); HEMATOCRIT 40.6 % (42.0-52.0); HEMOGLOBIN 13.4 g/dl (13.5-17.5); IMMATURE GRANULOCYTE % 0.2 % (0-3.0); LYMPH # 1.4 10^3/uL (1.5-4.5); LYMPH % 34.2 % (24.0-44.0); MEAN CORPUSCULAR HEMOGLOBIN 31.9 pg (27.0-33.0); MEAN CORPUSCULAR VOLUME 96.7 fl (80.0-96.0); MONO # 0.3 10^3/uL (0.0-0.8); MONO % 6.4 % (0.0-5.0); NEUTROPHILS # 2.3 10^3/uL (1.8-7.7); NEUTROPHILS % 57.7 % (36.0-66.0); PLATELET COUNT, AUTOMATED 225 10^3/uL (150-450); RED CELL DISTRIBUTION WIDTH 13.8 % (11.5-14.5); WHITE BLOOD COUNT 4.1 10^3/uL (4.0-10.0)
== END ==
LOC: M WUC 08:21
DX: F25.0 Schizoaffective disorder, bipolar type (principal)
CPT/HCPCS: 85025

== ENCOUNTER → 2018-08-06 | Outpatient (CLI) | payer MEDICAID ==
[2018-08-06 13:59] LABS: EOS % 0.6 % (0.0-3.0); HEMATOCRIT 40.5 % (42.0-52.0); IMMATURE GRANULOCYTE % 0.3 % (0-3.0); LYMPH % 28.8 % (24.0-44.0); MEAN CORPUSCULAR HEMOGLOBIN 32.6 pg (27.0-33.0); MEAN CORPUSCULAR HGB CONC 34.6 g/dl (32.0-36.5); MEAN CORPUSCULAR VOLUME 94.2 fl (80.0-96.0); MONO # 0.2 10^3/uL (0.0-0.8); MONO % 4.5 % (0.0-5.0); NEUTROPHILS # 2.4 10^3/uL (1.8-7.7); NEUTROPHILS % 65.8 % (36.0-66.0); PLATELET COUNT, AUTOMATED 244 10^3/uL (150-450); RED CELL DISTRIBUTION WIDTH 13.6 % (11.5-14.5); WHITE BLOOD COUNT 3.6 10^3/uL (4.0-10.0)
[2018-08-06 14:15] LABS: ALBUMIN 4.1 GM/DL (3.2-5.2); ALBUMIN/GLOBULIN RATIO 1.41 (1.00-1.93); ALKALINE PHOSPHATASE 49 U/L (45-117); ALT/SGPT 20 U/L (12-78); AST/SGOT 18 U/L (7-37); BILIRUBIN,DIRECT < 0.1 MG/DL (0.0-0.2); BILIRUBIN,TOTAL 0.4 MG/DL (0.2-1.0); VALPROIC ACID (DEPAKOTE) 38.8 UG/ML (50.0-100.0)
[2018-08-08 15:03] LABS: CLOZAPINE 1 147 ng/mL (350-650); CLOZAPINE 2 90 ng/mL (Not Estab.); CLOZAPINE 3 237 ng/mL (.)
== END ==
LOC: M WUC 08:51
DX: F25.0 Schizoaffective disorder, bipolar type (principal)
CPT/HCPCS: 80164

== ENCOUNTER → 2018-08-21 | Outpatient (CLI) | payer MEDICAID ==
[2018-08-21 12:47] LABS: BASO % 0.2 % (0.0-1.0); EOS % 0.7 % (0.0-3.0); HEMOGLOBIN 14.2 g/dl (13.5-17.5); IMMATURE GRANULOCYTE % 0.2 % (0-3.0); LYMPH # 1.3 10^3/uL (1.5-4.5); LYMPH % 30.3 % (24.0-44.0); MEAN CORPUSCULAR HEMOGLOBIN 32.7 pg (27.0-33.0); MEAN CORPUSCULAR VOLUME 99.1 fl (80.0-96.0); MONO # 0.3 10^3/uL (0.0-0.8); MONO % 6.4 % (0.0-5.0); NEUTROPHILS # 2.6 10^3/uL (1.8-7.7); NEUTROPHILS % 62.2 % (36.0-66.0); PLATELET COUNT, AUTOMATED 242 10^3/uL (150-450); RED BLOOD COUNT 4.34 10^6/uL (4.30-6.10); RED CELL DISTRIBUTION WIDTH 13.9 % (11.5-14.5); WHITE BLOOD COUNT 4.2 10^3/uL (4.0-10.0)
[2018-08-21 13:05] LABS: VALPROIC ACID (DEPAKOTE) 48.7 UG/ML (50.0-100.0)
== END ==
LOC: M WUC 08:48
DX: F25.0 Schizoaffective disorder, bipolar type (principal)
CPT/HCPCS: 80164

== ENCOUNTER → 2018-09-03 | Outpatient (CLI) | payer MEDICAID ==
[2018-09-03 18:23] LABS: EOS # 0.1 10^3/uL (0.0-0.50); EOS % 1.5 % (0.0-3.0); HEMATOCRIT 38.4 % (42.0-52.0); HEMOGLOBIN 13.1 g/dl (13.5-17.5); IMMATURE GRANULOCYTE % 0.3 % (0-3.0); LYMPH # 1.9 10^3/uL (1.5-4.5); LYMPH % 32.1 % (24.0-44.0); MEAN CORPUSCULAR HEMOGLOBIN 32.9 pg (27.0-33.0); MEAN CORPUSCULAR HGB CONC 34.1 g/dl (32.0-36.5); MEAN CORPUSCULAR VOLUME 96.5 fl (80.0-96.0); MONO # 0.5 10^3/uL (0.0-0.8); MONO % 8.3 % (0.0-5.0); NEUTROPHILS # 3.4 10^3/uL (1.8-7.7); NEUTROPHILS % 57.8 % (36.0-66.0); PLATELET COUNT, AUTOMATED 227 10^3/uL (150-450); RED BLOOD COUNT 3.98 10^6/uL (4.30-6.10); RED CELL DISTRIBUTION WIDTH 13.6 % (11.5-14.5); WHITE BLOOD COUNT 5.9 10^3/uL (4.0-10.0)
== END ==
LOC: M WUC 14:40
DX: F25.0 Schizoaffective disorder, bipolar type (principal)
CPT/HCPCS: 85025

== ENCOUNTER 2018-09-10 18:27 | Emergency (ER) | payer MEDICAID ==
[2018-09-10] MEDS: clonazePAM 1 MG TAB PO (20:17)
== END 2018-09-10 20:21 | disposition home or self-care (01) ==
LOC: M ED 18:27
DX: Z76.0 Encounter for issue of repeat prescription (principal); F41.9 Anxiety disorder, unspecified; F17.200 Nicotine dependence, unspecified, uncomplicated
CPT/HCPCS: 99283

== ENCOUNTER → 2018-09-19 | Outpatient (CLI) | payer MEDICAID ==
[2018-09-19 16:30] LABS: BASO % 0.2 % (0.0-1.0); EOS % 0.6 % (0.0-3.0); HEMATOCRIT 38.2 % (42.0-52.0); HEMOGLOBIN 12.9 g/dl (13.5-17.5); IMMATURE GRANULOCYTE % 0.3 % (0-3.0); LYMPH # 2.3 10^3/uL (1.5-4.5); LYMPH % 34.9 % (24.0-44.0); MEAN CORPUSCULAR HEMOGLOBIN 33.2 pg (27.0-33.0); MEAN CORPUSCULAR HGB CONC 33.8 g/dl (32.0-36.5); MEAN CORPUSCULAR VOLUME 98.5 fl (80.0-96.0); MONO # 0.6 10^3/uL (0.0-0.8); MONO % 8.5 % (0.0-5.0); NEUTROPHILS # 3.6 10^3/uL (1.8-7.7); NEUTROPHILS % 55.5 % (36.0-66.0); PLATELET COUNT, AUTOMATED 237 10^3/uL (150-450); RED BLOOD COUNT 3.88 10^6/uL (4.30-6.10); RED CELL DISTRIBUTION WIDTH 13.7 % (11.5-14.5); WHITE BLOOD COUNT 6.4 10^3/uL (4.0-10.0)
== END ==
LOC: M WUC 14:59
DX: F25.0 Schizoaffective disorder, bipolar type (principal)
CPT/HCPCS: 85025

== ENCOUNTER → 2018-10-01 | Outpatient (CLI) | payer MEDICAID ==
[2018-10-01 16:53] LABS: BASO % 0.2 % (0.0-1.0); EOS % 0.5 % (0.0-3.0); HEMATOCRIT 40.5 % (42.0-52.0); HEMOGLOBIN 13.5 g/dl (13.5-17.5); IMMATURE GRANULOCYTE % 0.4 % (0-3.0); LYMPH # 1.7 10^3/uL (1.5-4.5); LYMPH % 29.5 % (24.0-44.0); MEAN CORPUSCULAR HEMOGLOBIN 32.7 pg (27.0-33.0); MEAN CORPUSCULAR HGB CONC 33.3 g/dl (32.0-36.5); MEAN CORPUSCULAR VOLUME 98.1 fl (80.0-96.0); MONO # 0.4 10^3/uL (0.0-0.8); MONO % 6.3 % (0.0-5.0); NEUTROPHILS # 3.6 10^3/uL (1.8-7.7); NEUTROPHILS % 63.1 % (36.0-66.0); PLATELET COUNT, AUTOMATED 234 10^3/uL (150-450); RED BLOOD COUNT 4.13 10^6/uL (4.30-6.10); RED CELL DISTRIBUTION WIDTH 13.3 % (11.5-14.5); WHITE BLOOD COUNT 5.7 10^3/uL (4.0-10.0)
== END ==
LOC: M WUC 11:35
DX: F25.0 Schizoaffective disorder, bipolar type (principal)
CPT/HCPCS: 85025

== ENCOUNTER → 2018-10-29 | Outpatient (CLI) | payer MEDICAID ==
[~2018-10-29] MED LIST changes: -CLON0.5T PO; +CLON0.5T8 PO; +CLON1TAB8 PO; +CLOZ100T2 PO; +CLOZ50TA PO; -DIVA500T3 PO; +DIVA500T94 PO; -GABA-283 PO; +GABA-845 PO; -GABA600T PO; +GABA600T4 PO; +NAPR-50 PO; -NAPR500T PO; +NEUR600T PO; -OLAN20TA PO; +OLAN20TA14 PO; -OXCA300T PO; +OXCA300T14 PO; +RANI1SYP PO; +TIZA4CAP PO; +TRAZ-160 PO; -TRAZ50TA11 PO; +ZOLO100T PO; +ZYPR5TAB31 PO
[2018-10-29 17:00] LABS: EOS # 0.1 10^3/uL (0.0-0.50); HEMATOCRIT 42.1 % (42.0-52.0); LYMPH # 1.9 10^3/uL (1.5-4.5); LYMPH % 33.1 % (24.0-44.0); MEAN CORPUSCULAR HEMOGLOBIN 32.6 pg (27.0-33.0); MEAN CORPUSCULAR HGB CONC 33.3 g/dl (32.0-36.5); MEAN CORPUSCULAR VOLUME 97.9 fl (80.0-96.0); MONO # 0.4 10^3/uL (0.0-0.8); MONO % 7.1 % (0.0-5.0); NEUTROPHILS # 3.4 10^3/uL (1.8-7.7); NEUTROPHILS % 58.5 % (36.0-66.0); PLATELET COUNT, AUTOMATED 214 10^3/uL (150-450); WHITE BLOOD COUNT 5.7 10^3/uL (4.0-10.0)
== END ==
LOC: M WUC 14:00
PROVIDERS: ATTEND Psychiatry & Neurology Psychiatry
DX: F25.0 Schizoaffective disorder, bipolar type (principal)

== ENCOUNTER → 2018-11-12 | Outpatient (CLI) | payer MEDICAID ==
--- NOTE | 2018-11-12 11:52 | REP ---
CHEST, TWO VIEWS: HISTORY: Nicotine dependence. COMPARISON: 09/27/2017 The lungs are clear. The heart is normal in size. The pulmonary vasculature is normal in appearance. The bony structure is intact. IMPRESSION: No acute disease. Electronically Signed by Roberto Horne MD 11/12/2018 11:54 A
[2018-11-12 17:16] LABS: BASO % 0.2 % (0.0-1.0); EOS % 0.8 % (0.0-3.0); HEMATOCRIT 43.6 % (42.0-52.0); HEMOGLOBIN 14.5 g/dl (13.5-17.5); LYMPH # 1.8 10^3/uL (1.5-4.5); LYMPH % 34.8 % (24.0-44.0); MEAN CORPUSCULAR HEMOGLOBIN 33.2 pg (27.0-33.0); MEAN CORPUSCULAR HGB CONC 33.3 g/dl (32.0-36.5); MEAN CORPUSCULAR VOLUME 99.8 fl (80.0-96.0); MONO # 0.4 10^3/uL (0.0-0.8); MONO % 6.7 % (0.0-5.0); NEUTROPHILS % 57.1 % (36.0-66.0); PLATELET COUNT, AUTOMATED 230 10^3/uL (150-450); RED BLOOD COUNT 4.37 10^6/uL (4.30-6.10); WHITE BLOOD COUNT 5.2 10^3/uL (4.0-10.0)
== END ==
LOC: M WUC 11:12
PROVIDERS: ATTEND Family Medicine
DX: F17.210 Nicotine dependence, cigarettes, uncomplicated (principal)

== ENCOUNTER → 2018-11-26 | Outpatient (CLI) | payer MEDICAID ==
[2018-11-26 15:49] LABS: BASO % 0.1 % (0.0-1.0); EOS % 0.1 % (0.0-3.0); HEMATOCRIT 37.7 % (42.0-52.0); HEMOGLOBIN 12.6 g/dl (13.5-17.5); LYMPH # 1.5 10^3/uL (1.5-4.5); LYMPH % 14.2 % (24.0-44.0); MEAN CORPUSCULAR HEMOGLOBIN 32.9 pg (27.0-33.0); MEAN CORPUSCULAR HGB CONC 33.4 g/dl (32.0-36.5); MEAN CORPUSCULAR VOLUME 98.4 fl (80.0-96.0); MONO # 0.8 10^3/uL (0.0-0.8); MONO % 7.6 % (0.0-5.0); NEUTROPHILS # 8.3 10^3/uL (1.8-7.7); NEUTROPHILS % 77.6 % (36.0-66.0); PLATELET COUNT, AUTOMATED 207 10^3/uL (150-450); RED BLOOD COUNT 3.83 10^6/uL (4.30-6.10); WHITE BLOOD COUNT 10.7 10^3/uL (4.0-10.0)
== END ==
LOC: M WUC 11:52
PROVIDERS: ATTEND Psychiatry & Neurology Psychiatry
DX: F25.0 Schizoaffective disorder, bipolar type (principal)

== ENCOUNTER → 2018-12-11 | Outpatient (CLI) | payer MEDICAID ==
[2018-12-11 18:20] LABS: EOS % 0.7 % (0.0-3.0); HEMATOCRIT 42.9 % (42.0-52.0); HEMOGLOBIN 13.8 g/dl (13.5-17.5); LYMPH # 1.7 10^3/uL (1.5-4.5); LYMPH % 39.1 % (24.0-44.0); MEAN CORPUSCULAR HEMOGLOBIN 32.5 pg (27.0-33.0); MEAN CORPUSCULAR HGB CONC 32.2 g/dl (32.0-36.5); MEAN CORPUSCULAR VOLUME 101.2 fl (80.0-96.0); MONO # 0.3 10^3/uL (0.0-0.8); MONO % 6.1 % (0.0-5.0); NEUTROPHILS # 2.4 10^3/uL (1.8-7.7); NEUTROPHILS % 53.9 % (36.0-66.0); PLATELET COUNT, AUTOMATED 247 10^3/uL (150-450); RED BLOOD COUNT 4.24 10^6/uL (4.30-6.10); WHITE BLOOD COUNT 4.4 10^3/uL (4.0-10.0)
== END ==
LOC: M WUC 10:14
PROVIDERS: ATTEND Psychiatry & Neurology Psychiatry
DX: F25.0 Schizoaffective disorder, bipolar type (principal)

== ENCOUNTER → 2018-12-24 | Outpatient (CLI) | payer MEDICAID ==
[2018-12-24 17:00] LABS: BASO % 0.2 % (0.0-1.0); EOS % 0.6 % (0.0-3.0); HEMATOCRIT 41.5 % (42.0-52.0); HEMOGLOBIN 13.7 g/dl (13.5-17.5); LYMPH # 1.7 10^3/uL (1.5-4.5); LYMPH % 33.8 % (24.0-44.0); MEAN CORPUSCULAR HEMOGLOBIN 32.4 pg (27.0-33.0); MEAN CORPUSCULAR VOLUME 98.1 fl (80.0-96.0); MONO # 0.5 10^3/uL (0.0-0.8); MONO % 9.7 % (0.0-5.0); NEUTROPHILS # 2.8 10^3/uL (1.8-7.7); NEUTROPHILS % 55.5 % (36.0-66.0); PLATELET COUNT, AUTOMATED 209 10^3/uL (150-450); RED BLOOD COUNT 4.23 10^6/uL (4.30-6.10)
== END ==
LOC: M WUC 12:52
PROVIDERS: ATTEND Psychiatry & Neurology Psychiatry
DX: F25.0 Schizoaffective disorder, bipolar type (principal)